=== PATIENT | male | born 2000 | race Caucasian/White ===

== ENCOUNTER 2023-02-14 19:53 | Emergency (ER) | payer MEDICAID, SELFPAY ==
[2023-02-14 20:04] VITALS: BP 157/92; PULSE 96; RESP 18; TEMP 37.2; O2SAT 98; BMI 31.9
--- NOTE | 2023-02-14 20:13 | ED_ITS ---
HPI - General Adult General Chief complaint: Psychiatric Symptoms <SHAUN Galan - Last Filed: 02/16/23 13:34> Stated complaint: CRISIS <SHAUN Galan - Last Filed: 02/16/23 13:34> Time Seen by Provider: 02/14/23 20:53 <SHAUN Galan - Last Filed: 02/16/23 13:34> Source: patient <Moni Cevallos MD - Last Filed: 02/14/23 23:41> Mode of arrival: ambulatory <Moni Cevallos MD - Last Filed: 02/14/23 23:41> History of Present Illness HPI narrative: 22-year-old male who has struggled with anxiety and depression in the past and was recently started on fluoxetine this past Wednesday and states that he has had significantly increasing feelings of depression and although no explicit thoughts of killing himself or anyone else he states that he feels like he is going to . He describes these as dark thoughts. Otherwise he denies any recent fever, chills, cough, sore throat, GI or symptoms. <Moni Cevallos MD - Last Filed: 02/14/23 23:41> Related Data Home medications: Home Medications Medication Instructions Recorded Confirmed fluoxetine 10 mg capsule 10 mg PO DAILY 02/15/23 02/15/23 <SHAUN Galan - Last Filed: 02/16/23 13:34> Allergies/adverse reactions: Allergies Allergy/AdvReac Type Severity Reaction Status Date / Time environmental allergies Allergy Runny Nose Verified 02/14/23 20:10 shellfish derived Allergy Unknown Verified 02/14/23 20:10 <SHAUN Galan - Last Filed: 02/16/23 13:34> Review of Systems Review of Systems: Pertinent positives and negatives as stated in HPI <Moni Cevallos MD - Last Filed: 02/14/23 23:41> PMFSH Past Medical History Source: nursing notes reviewed <Moni Cevallos MD - Last Filed: 02/14/23 23:41> Social History Social History: Social History Alcohol intake: current Alcohol intake frequency: 3 or more drinks per day Alcohol type: beer and hard liquor Smoked in Last 30 Days: Yes Use of substances other than those prescribed or required for medical reasons: No Substance Use Type: Marijuana Substance Use Frequency: Socially Substance Use Frequency Other:: rarely Last Used Substance: Weeks (ago) Any prior treatment program specific to substance use: No Advance Directives: No Advance Directives Information Provided: No Healthcare Proxy: No Guardian: No <SHAUN Galan - Last Filed: 02/16/23 13:34> Physical Exam ED Vital Signs: Vital Signs - 24 hr 02/14/23 20:04 02/14/23 20:21 02/15/23 04:13 Temperature 98.9 F 98.2 F Pulse Rate 96 80 Respiratory Rate 18 18 12 Blood Pressure 157/92 H 154/98 H Pulse Oximetry 98 100 Oxygen Delivery Method Room Air Room Air 02/15/23 05:20 02/15/23 07:27 Temperature 97.8 F 98.0 F Pulse Rate 67 72 Respiratory Rate 16 12 Blood Pressure 137/96 H 148/99 H Pulse Oximetry 97 98 Oxygen Delivery Method Room Air Room Air BMI result Body Mass Index 31.9 <SHAUN Galan - Last Filed: 02/16/23 13:34> Vital Signs - 24 hr 02/14/23 20:04 02/14/23 20:21 02/15/23 04:13 Temperature 98.9 F 98.2 F Pulse Rate 96 80 Respiratory Rate 18 18 12 Blood Pressure 157/92 H 154/98 H Pulse Oximetry 98 100 Oxygen Delivery Method Room Air Room Air 02/15/23 05:20 02/15/23 07:27 Temperature 97.8 F 98.0 F Pulse Rate 67 72 Respiratory Rate 16 12 Blood Pressure 137/96 H 148/99 H Pulse Oximetry 97 98 Oxygen Delivery Method Room Air Room Air BMI result Body Mass Index 31.9 VITAL SIGNS: Reviewed. GENERAL: Well developed, well nourished, in no acute distress. HEAD: Normocephalic/atraumatic EYES: PERRLA, EOMI EARS: Ext canals without abnormality NOSE: Nares patent bilateral OROPHARYNX: no oral lesions noted, posterior pharynx clear and non-erythematous without noted tonsillar enlargement/erythema/exudates NECK: Supple, no adenopathy LUNGS: Normal breath sounds. No adventitious sounds or accessory muscle use. SpO2<100> CARDIOVASCULAR: Regular rate and rhythm without noted murmurs ABDOMEN: Soft, non-tender, non-distended with bowel sounds. MUSCULOSKELETAL: No tenderness, deformities, or effusions noted on gross inspection. EXTREMITIES: No cyanosis, clubbing or edema. SKIN: Inspection of the skin reveals no rashes NEUROLOGIC: Alert and oriented x 4. Strength and sensation to light touch were grossly intact x 4. <Moni Cevallos MD - Last Filed: 02/14/23 23:41> Vital Signs - 24 hr 02/14/23 20:04 02/14/23 20:21 02/15/23 04:13 Temperature 98.9 F 98.2 F Pulse Rate 96 80 Respiratory Rate 18 18 12 Blood Pressure 157/92 H 154/98 H Pulse Oximetry 98 100 Oxygen Delivery Method Room Air Room Air 02/15/23 05:20 02/15/23 07:27 Temperature 97.8 F 98.0 F Pulse Rate 67 72 Respiratory Rate 16 12 Blood Pressure 137/96 H 148/99 H Pulse Oximetry 97 98 Oxygen Delivery Method Room Air Room Air BMI result Body Mass Index 31.9 <Aristeo James MD - Last Filed: 02/15/23 12:42> Course Course Course Narrative: RME: 22 yold male presents to the ED for anxiety, depression, crying, and having dark thoughts. denies SI/HI. labs and crisis ordered. <SHAUN Galan - Last Filed: 02/16/23 13:34> Reevaluation(s) Reevaluation #1: Assume care at 7:00 a.m. this morning. Patient has symptoms consistent with depression anxiety and reported dark thoughts. He is due to be evaluated. <Aristeo James MD - Last Filed: 02/15/23 12:42> Time: 07:09 <Aristeo James MD - Last Filed: 02/15/23 12:42> Reevaluation #2: patient can be discharged per Crisis, wasn't on medications but now with insurance he will be able to get meds. No SI. Outpatient resources to be made available to patient <Aristeo James MD - Last Filed: 02/15/23 12:42> Time: 12:39 <Aristeo James MD - Last Filed: 02/15/23 12:42> Medications Administered Discontinued Medications Generic Name Dose Route Start Last Admin Trade Name Freq PRN Reason Stop Dose Admin Lorazepam 1 mg 02/15/23 07:26 02/15/23 07:39 Lorazepam 1 Mg Tablet PO 02/15/23 07:27 1 mg ONCE ONE Administration Nicotine 21 mg 02/15/23 07:26 02/15/23 07:39 Nicotine 21 Mg Patch.Td24 TRANSDERMA 02/15/23 07:27 21 mg ONCE ONE Administration <SHAUN Galan - Last Filed: 02/16/23 13:34> Medications Administered Discontinued Medications Generic Name Dose Route Start Last Admin Trade Name Freq PRN Reason Stop Dose Admin Lorazepam 1 mg 02/15/23 07:26 02/15/23 07:39 Lorazepam 1 Mg Tablet PO 02/15/23 07:27 1 mg ONCE ONE Administration Nicotine 21 mg 02/15/23 07:26 02/15/23 07:39 Nicotine 21 Mg Patch.Td24 TRANSDERMA 02/15/23 07:27 21 mg ONCE ONE Administration <Moni Cevallos MD - Last Filed: 02/14/23 23:41> Medications Administered Discontinued Medications Generic Name Dose Route Start Last Admin Trade Name Freq PRN Reason Stop Dose Admin Lorazepam 1 mg 02/15/23 07:26 02/15/23 07:39 Lorazepam 1 Mg Tablet PO 02/15/23 07:27 1 mg ONCE ONE Administration Nicotine 21 mg 02/15/23 07:26 02/15/23 07:39 Nicotine 21 Mg Patch.Td24 TRANSDERMA 02/15/23 07:27 21 mg ONCE ONE Administration <Aristeo James MD - Last Filed: 02/15/23 12:42> Medical Decision Making Medical Decision Making MDM Narrative: 22-year-old male with history and clinical presentation consistent with depression likely increased by recent initiation of the fluoxetine but denies any overt SI/HI at this time but reports significant worsening of depression and anxiety. I have reviewed all investigations and I have noted that there is a le ukocytosis however there is no obvious etiology at this time, patient is afebrile/not tachycardic. Patient is otherwise medically cleared for further evaluation by the care team. Patient placed in physician observation because the patient needed more time for evaluation by the care team. At the time observation was started the patient's vital signs were stable, patient is alert and oriented, neuro: Nonfocal, CV RRR, lungs clear <Moni Brazille, MD - Last Filed: 02/14/23 23:41> Differential Diagnosis Please see the discussion above <Moni Cevallos MD - Last Filed: 02/14/23 23:41> Lab Data Please see the discussion above <Moni Cevallos MD - Last Filed: 02/14/23 23:41> Result Diagrams: 02/14/23 20:23 02/14/23 20:23 <SHAUN Galan - Last Filed: 02/16/23 13:34> Labs: Lab Results 02/14/23 02/14/23 02/14/23 Range/Units 20:23 20:23 20:23 WBC 15.0 H (4.8-10.8) X10*3/uL RBC 5.12 (4.60-5.80) X10*6/uL Hgb 16.6 (14.0-18.0) g/dl Hct 47.4 (42.0-52.0) % MCV 92.6 (80.0-98.0) fL MCH 32.4 (27.0-33.0) pg MCHC 35.0 (31.0-36.0) g/dl RDW 11.9 (11.0-16.0) % Plt Count 310 (160-400) X10*3/uL MPV 8.2 L (9.4-12.4) fL Immature Gran % (Auto) 0.5 H (0.0-0.4) % Neut % (Auto) 74.1 H (45-73) % Lymph % (Auto) 19.7 L (20-40) % [place] % (Auto) 4.9 (2-11) % Eos % (Auto) 0.5 (0-4) % Baso % (Auto) 0.3 (0-2) % Lymph # (Auto) 3.0 (1.2-4.9) X10*3/uL [place] # (Auto) 0.7 (0.1-1.2) X10*3/uL Eos # (Auto) 0.1 (0.0-0.4) X10*3/uL Baso # (Auto) 0.1 (0.0-0.2) X10*3/uL Abs Immat Gran (auto) 0.08 H (0.00-0.03) X10*3/uL Absolute Neuts (auto) 11.1 H (2.0-8.3) x10*3/uL Absolute Nucleated RBC 0.000 (0.0-0.012) X10*3/uL Nucleated RBC % (auto) 0.0 (0.0-0.2) /100WBC Sodium 140 (135-145) mmol/L Potassium 4.2 (3.3-5.1) mmol/L Chloride 103 (96-108) mmol/L Carbon Dioxide 24 (22-29) mmol/L Anion Gap 17 (12-20) BUN 14 (9-16) mg/dL Creatinine 1.07 (0.5-1.4) mg/dL Estim Creat Clear Calc 119.1 Estimated GFR > 60 Random Glucose 99 (60-115) mg/dL Calcium 10.3 H (8.4-10.2) mg/dL Total Bilirubin 0.3 (0.0-1.0) mg/dL AST 35 (5-37) U/L ALT 67 H (0-40) U/L Alkaline Phosphatase 100 (39-117) U/L Total Protein 8.4 H (6.5-8.0) g/dL Albumin 4.9 (3.5-5.0) g/dL Urine Color Urine Appearance Urine pH (5.0-9.0) Ur Specific [place] (1.005-1.025) Urine Protein (Neg-Trace) mg/dL Urine Glucose (UA) (Negative) mg/dL Urine Ketones (Negative) mg/dL Urine Blood (Negative) Urine Nitrite (Negative) Ur Leukocyte Esterase (Negative) Urine Opiates Screen (Not Detect) Urine Fentanyl Screen (Not Detect) Ur Barbiturates Screen (Not Detect) Ur Phencyclidine Scrn (Not Detect) Ur Amphetamines Screen (Not Detect) U Benzodiazepines Scrn (Not Detect) Urine Cocaine Screen (Not Detect) U Marijuana (THC) Screen (Not Detect) Ethyl Alcohol < 10 mg/dL COVID-19 ([facility]) (Negative) COVID-19 Clin Com 02/14/23 02/14/23 02/14/23 Range/Units 22:37 22:37 22:46 WBC (4.8-10.8) X10*3/uL RBC (4.60-5.80) X10*6/uL Hgb (14.0-18.0) g/dl Hct (42.0-52.0) % MCV (80.0-98.0) fL MCH (27.0-33.0) pg MCHC (31.0-36.0) g/dl RDW (11.0-16.0) % Plt Count (160-400) X10*3/uL MPV (9.4-12.4) fL Immature Gran % (Auto) (0.0-0.4) % Neut % (Auto) (45-73) % Lymph % (Auto) (20-40) % [place] % (Auto) (2-11) % Eos % (Auto) (0-4) % Baso % (Auto) (0-2) % Lymph # (Auto) (1.2-4.9) X10*3/uL [place] # (Auto) (0.1-1.2) X10*3/uL Eos # (Auto) (0.0-0.4) X10*3/uL Baso # (Auto) (0.0-0.2) X10*3/uL Abs Immat Gran (auto) (0.00-0.03) X10*3/uL Absolute Neuts (auto) (2.0-8.3) x10*3/uL Absolute Nucleated RBC (0.0-0.012) X10*3/uL Nucleated RBC % (auto) (0.0-0.2) /100WBC Sodium (135-145) mmol/L Potassium (3.3-5.1) mmol/L Chloride (96-108) mmol/L Carbon Dioxide (22-29) mmol/L Anion Gap (12-20) BUN (9-16) mg/dL Creatinine (0.5-1.4) mg/dL Estim Creat Clear Calc Estimated GFR Random Glucose (60-115) mg/dL Calcium (8.4-10.2) mg/dL Total Bilirubin (0.0-1.0) mg/dL AST (5-37) U/L ALT (0-40) U/L Alkaline Phosphatase (39-117) U/L Total Protein (6.5-8.0) g/dL Albumin (3.5-5.0) g/dL Urine Color Yellow Urine Appearance Clear Urine pH 7.0 (5.0-9.0) Ur Specific [place] 1.020 (1.005-1.025) Urine Protein Negative (Neg-Trace) mg/dL Urine Glucose (UA) Negative (Negative) mg/dL Urine Ketones Trace (Negative) mg/dL Urine Blood Negative (Negative) Urine Nitrite Negative (Negative) Ur Leukocyte Esterase Negative (Negative) Urine Opiates Screen Not Detected (Not Detect) Urine Fentanyl Screen Not Detected (Not Detect) Ur Barbiturates Screen Not Detected (Not Detect) Ur Phencyclidine Scrn Not Detected (Not Detect) Ur Amphetamines Screen Not Detected (Not Detect) U Benzodiazepines Scrn Not Detected (Not Detect) Urine Cocaine Screen Not Detected (Not Detect) U Marijuana (THC) Screen Not Detected (Not Detect) Ethyl Alcohol mg/dL COVID-19 ([facility]) Negative (Negative) COVID-19 Clin Com See Note <SHAUN Galan - Last Filed: 02/16/23 13:34> Lab Results 02/14/23 02/14/23 02/14/23 Range/Units 20:23 20:23 20:23 WBC 15.0 H (4.8-10.8) X10*3/uL RBC 5.12 (4.60-5.80) X10*6/uL Hgb 16.6 (14.0-18.0) g/dl Hct 47.4 (42.0-52.0) % MCV 92.6 (80.0-98.0) fL MCH 32.4 (27.0-33.0) pg MCHC 35.0 (31.0-36.0) g/dl RDW 11.9 (11.0-16.0) % Plt Count 310 (160-400) X10*3/uL MPV 8.2 L (9.4-12.4) fL Immature Gran % (Auto) 0.5 H (0.0-0.4) % Neut % (Auto) 74.1 H (45-73) % Lymph % (Auto) 19.7 L (20-40) % [place] % (Auto) 4.9 (2-11) % Eos % (Auto) 0.5 (0-4) % Baso % (Auto) 0.3 (0-2) % Lymph # (Auto) 3.0 (1.2-4.9) X10*3/uL [place] # (Auto) 0.7 (0.1-1.2) X10*3/uL Eos # (Auto) 0.1 (0.0-0.4) X10*3/uL Baso # (Auto) 0.1 (0.0-0.2) X10*3/uL Abs Immat Gran (auto) 0.08 H (0.00-0.03) X10*3/uL Absolute Neuts (auto) 11.1 H (2.0-8.3) x10*3/uL Absolute Nucleated RBC 0.000 (0.0-0.012) X10*3/uL Nucleated RBC % (auto) 0.0 (0.0-0.2) /100WBC Sodium 140 (135-145) mmol/L Potassium 4.2 (3.3-5.1) mmol/L Chloride 103 (96-108) mmol/L Carbon Dioxide 24 (22-29) mmol/L Anion Gap 17 (12-20) BUN 14 (9-16) mg/dL Creatinine 1.07 (0.5-1.4) mg/dL Estim Creat Clear Calc 119.1 Estimated GFR > 60 Random Glucose 99 (60-115) mg/dL Calcium 10.3 H (8.4-10.2) mg/dL Total Bilirubin 0.3 (0.0-1.0) mg/dL AST 35 (5-37) U/L ALT 67 H (0-40) U/L Alkaline Phosphatase 100 (39-117) U/L Total Protein 8.4 H (6.5-8.0) g/dL Albumin 4.9 (3.5-5.0) g/dL Urine Color Urine Appearance Urine pH (5.0-9.0) Ur Specific [place] (1.005-1.025) Urine Protein (Neg-Trace) mg/dL Urine Glucose (UA) (Negative) mg/dL Urine Ketones (Negative) mg/dL Urine Blood (Negative) Urine Nitrite (Negative) Ur Leukocyte Esterase (Negative) Urine Opiates Screen (Not Detect) Urine Fentanyl Screen (Not Detect) Ur Barbiturates Screen (Not Detect) Ur Phencyclidine Scrn (Not Detect) Ur Amphetamines Screen (Not Detect) U Benzodiazepines Scrn (Not Detect) Urine Cocaine Screen (Not Detect) U Marijuana (THC) Screen (Not Detect) Ethyl Alcohol < 10 mg/dL COVID-19 ([facility]) (Negative) COVID-19 Clin Com 02/14/23 02/14/23 02/14/23 Range/Units 22:37 22:37 22:46 WBC (4.8-10.8) X10*3/uL RBC (4.60-5.80) X10*6/uL Hgb (14.0-18.0) g/dl Hct (42.0-52.0) % MCV (80.0-98.0) fL MCH (27.0-33.0) pg MCHC (31.0-36.0) g/dl RDW (11.0-16.0) % Plt Count (160-400) X10*3/uL MPV (9.4-12.4) fL Immature Gran % (Auto) (0.0-0.4) % Neut % (Auto) (45-73) % Lymph % (Auto) (20-40) % [place] % (Auto) (2-11) % Eos % (Auto) (0-4) % Baso % (Auto) (0-2) % Lymph # (Auto) (1.2-4.9) X10*3/uL [place] # (Auto) (0.1-1.2) X10*3/uL Eos # (Auto) (0.0-0.4) X10*3/uL Baso # (Auto) (0.0-0.2) X10*3/uL Abs Immat Gran (auto) (0.00-0.03) X10*3/uL Absolute Neuts (auto) (2.0-8.3) x10*3/uL Absolute Nucleated RBC (0.0-0.012) X10*3/uL Nucleated RBC % (auto) (0.0-0.2) /100WBC Sodium (135-145) mmol/L Potassium (3.3-5.1) mmol/L Chloride (96-108) mmol/L Carbon Dioxide (22-29) mmol/L Anion Gap (12-20) BUN (9-16) mg/dL Creatinine (0.5-1.4) mg/dL Estim Creat Clear Calc Estimated GFR Random Glucose (60-115) mg/dL Calcium (8.4-10.2) mg/dL Total Bilirubin (0.0-1.0) mg/dL AST (5-37) U/L ALT (0-40) U/L Alkaline Phosphatase (39-117) U/L Total Protein (6.5-8.0) g/dL Albumin (3.5-5.0) g/dL Urine Color Yellow Urine Appearance Clear Urine pH 7.0 (5.0-9.0) Ur Specific [place] 1.020 (1.005-1.025) Urine Protein Negative (Neg-Trace) mg/dL Urine Glucose (UA) Negative (Negative) mg/dL Urine Ketones Trace (Negative) mg/dL Urine Blood Negative (Negative) Urine Nitrite Negative (Negative) Ur Leukocyte Esterase Negative (Negative) Urine Opiates Screen Not Detected (Not Detect) Urine Fentanyl Screen Not Detected (Not Detect) Ur Barbiturates Screen Not Detected (Not Detect) Ur Phencyclidine Scrn Not Detected (Not Detect) Ur Amphetamines Screen Not Detected (Not Detect) U Benzodiazepines Scrn Not Detected (Not Detect) Urine Cocaine Screen Not Detected (Not Detect) U Marijuana (THC) Screen Not Detected (Not Detect) Ethyl Alcohol mg/dL COVID-19 ([facility]) Negative (Negative) COVID-19 Clin Com See Note <Moni Cevallos MD - Last Filed: 02/14/23 23:41> Lab Results 02/14/23 02/14/23 02/14/23 Range/Units 20:23 20:23 20: WBC 15.0 H (4.8-10.8) X10*3/uL RBC 5.12 (4.60-5.80) X10*6/uL Hgb 16.6 (14.0-18.0) g/dl Hct 47.4 (42.0-52.0) % MCV 92.6 (80.0-98.0) fL MCH 32.4 (27.0-33.0) pg MCHC 35.0 (31.0-36.0) g/dl RDW 11.9 (11.0-16.0) % Plt Count 310 (160-400) X10*3/uL MPV 8.2 L (9.4-12.4) fL Immature Gran % (Auto) 0.5 H (0.0-0.4) % Neut % (Auto) 74.1 H (45-73) % Lymph % (Auto) 19.7 L (20-40) % [place] % (Auto) 4.9 (2-11) % Eos % (Auto) 0.5 (0-4) % Baso % (Auto) 0.3 (0-2) % Lymph # (Auto) 3.0 (1.2-4.9) X10*3/uL [place] # (Auto) 0.7 (0.1-1.2) X10*3/uL Eos # (Auto) 0.1 (0.0-0.4) X10*3/uL Baso # (Auto) 0.1 (0.0-0.2) X10*3/uL Abs Immat Gran (auto) 0.08 H (0.00-0.03) X10*3/uL Absolute Neuts (auto) 11.1 H (2.0-8.3) x10*3/uL Absolute Nucleated RBC 0.000 (0.0-0.012) X10*3/uL Nucleated RBC % (auto) 0.0 (0.0-0.2) /100WBC Sodium 140 (135-145) mmol/L Potassium 4.2 (3.3-5.1) mmol/L Chloride 103 (96-108) mmol/L Carbon Dioxide 24 (22-29) mmol/L Anion Gap 17 (12-20) BUN 14 (9-16) mg/dL Creatinine 1.07 (0.5-1.4) mg/dL Estim Creat Clear Calc 119.1 Estimated GFR > 60 Random Glucose 99 (60-115) mg/dL Calcium 10.3 H (8.4-10.2) mg/dL Total Bilirubin 0.3 (0.0-1.0) mg/dL AST 35 (5-37) U/L ALT 67 H (0-40) U/L Alkaline Phosphatase 100 (39-117) U/L Total Protein 8.4 H (6.5-8.0) g/dL Albumin 4.9 (3.5-5.0) g/dL Urine Color Urine Appearance Urine pH (5.0-9.0) Ur Specific [place] (1.005-1.025) Urine Protein (Neg-Trace) mg/dL Urine Glucose (UA) (Negative) mg/dL Urine Ketones (Negative) mg/dL Urine Blood (Negative) Urine Nitrite (Negative) Ur Leukocyte Esterase (Negative) Urine Opiates Screen (Not Detect) Urine Fentanyl Screen (Not Detect) Ur Barbiturates Screen (Not Detect) Ur Phencyclidine Scrn (Not Detect) Ur Amphetamines Screen (Not Detect) U Benzodiazepines Scrn (Not Detect) Urine Cocaine Screen (Not Detect) U Marijuana (THC) Screen (Not Detect) Ethyl Alcohol < 10 mg/dL COVID-19 ([facility]) (Negative) COVID-19 Clin Com 02/14/23 02/14/23 02/14/23 Range/Units 22:37 22:37 22:46 WBC (4.8-10.8) X10*3/uL RBC (4.60-5.80) X10*6/uL Hgb (14.0-18.0) g/dl Hct (42.0-52.0) % MCV (80.0-98.0) fL MCH (27.0-33.0) pg MCHC (31.0-36.0) g/dl RDW (11.0-16.0) % Plt Count (160-400) X10*3/uL MPV (9.4-12.4) fL Immature Gran % (Auto) (0.0-0.4) % Neut % (Auto) (45-73) % Lymph % (Auto) (20-40) % [place] % (Auto) (2-11) % Eos % (Auto) (0-4) % Baso % (Auto) (0-2) % Lymph # (Auto) (1.2-4.9) X10*3/uL [place] # (Auto) (0.1-1.2) X10*3/uL Eos # (Auto) (0.0-0.4) X10*3/uL Baso # (Auto) (0.0-0.2) X10*3/uL Abs Immat Gran (auto) (0.00-0.03) X10*3/uL Absolute Neuts (auto) (2.0-8.3) x10*3/uL Absolute Nucleated RBC (0.0-0.012) X10*3/uL Nucleated RBC % (auto) (0.0-0.2) /100WBC Sodium (135-145) mmol/L Potassium (3.3-5.1) mmol/L Chloride (96-108) mmol/L Carbon Dioxide (22-29) mmol/L Anion Gap (12-20) BUN (9-16) mg/dL Creatinine (0.5-1.4) mg/dL Estim Creat Clear Calc Estimated GFR Random Glucose (60-115) mg/dL Calcium (8.4-10.2) mg/dL Total Bilirubin (0.0-1.0) mg/dL AST (5-37) U/L ALT (0-40) U/L Alkaline Phosphatase (39-117) U/L Total Protein (6.5-8.0) g/dL Albumin (3.5-5.0) g/dL Urine Color Yellow Urine Appearance Clear Urine pH 7.0 (5.0-9.0) Ur Specific [place] 1.020 (1.005-1.025) Urine Protein Negative (Neg-Trace) mg/dL Urine Glucose (UA) Negative (Negative) mg/dL Urine Ketones Trace (Negative) mg/dL Urine Blood Negative (Negative) Urine Nitrite Negative (Negative) Ur Leukocyte Esterase Negative (Negative) Urine Opiates Screen Not Detected (Not Detect) Urine Fentanyl Screen Not Detected (Not Detect) Ur Barbiturates Screen Not Detected (Not Detect) Ur Phencyclidine Scrn Not Detected (Not Detect) Ur Amphetamines Screen Not Detected (Not Detect) U Benzodiazepines Scrn Not Detected (Not Detect) Urine Cocaine Screen Not Detected (Not Detect) U Marijuana (THC) Screen Not Detected (Not Detect) Ethyl Alcohol mg/dL COVID-19 ([facility]) Negative (Negative) COVID-19 Clin Com See Note <Aristeo James MD - Last Filed: 02/15/23 12:42> Discharge Plan Discharge Clinical Impression: Depression, Panic disorder, Leukocytosis <SHAUN Galan - Last Filed: 02/16/23 13:34> Patient Disposition: Home, Self-Care <SHAUN Galan - Last Filed: 02/16/23 13:34> Instructions: Depression (DC), Panic Disorder (ED), Leukocytosis (ED) <SHAUN Galan - Last Filed: 02/16/23 13:34> Additional Instructions: follow up with PMD for repeat blood work in 1-2 weeks <SHAUN Galan - Last Filed: 02/16/23 13:34> Prescriptions: No Action fluoxetine 10 mg Capsule 10 mg PO DAILY <SHAUN Galan - Last Filed: 02/16/23 13:34> Referrals: Jamal Brice MD [Primary Care Provider] - 5 days <SHAUN Galan - Last Filed: 02/16/23 13:34> Interventions: [place]-Suicide Risk Severity Scale Last Done: 02/15/23 12:55 ED Discharge Assessment Last Done: 02/15/23 12:55 <SHAUN Galan - Last Filed: 02/16/23 13:34> Discharge Date/Time: 02/15/23 12:56 <SHAUN Galan - Last Filed: 02/16/23 13:34>
[2023-02-14 20:21] VITALS: BP 154/98; PULSE 80; RESP 18; TEMP 36.8; O2SAT 100
[2023-02-14 20:28] LABS: MANUAL DIFF FLAG NO
[2023-02-14 20:29] LABS: Basophils Absolute Auto 0.1 X10*3/uL (0.0-0.2); Basophils Percent Auto 0.3 % (0-2); Eosinophils Absolute Auto 0.1 X10*3/uL (0.0-0.4); Eosinophils Percent Auto 0.5 % (0-4); Hematocrit 47.4 % (42.0-52.0); Hemoglobin 16.6 g/dl (14.0-18.0); Imm Gran Abs Auto 0.08 X10*3/uL (0.00-0.03); Imm Gran Pct Auto 0.5 % (0.0-0.4); Lymphocytes Percent Auto 19.7 % (20-40); Mean Corpuscular Hemoglobin 32.4 pg (27.0-33.0); Mean Corpuscular Volume 92.6 fL (80.0-98.0); Mean Platelet Volume 8.2 fL (9.4-12.4); Monocytes Absolute Auto 0.7 X10*3/uL (0.1-1.2); Monocytes Percent Auto 4.9 % (2-11); Neutrophils Absolute Auto 11.1 x10*3/uL (2.0-8.3); Neutrophils Percent Auto 74.1 % (45-73); Platelet Count 310 X10*3/uL (160-400); Red Blood Count 5.12 X10*6/uL (4.60-5.80); Red Cell Distribution Width 11.9 % (11.0-16.0)
--- NOTE | 2023-02-14 20:42 | PC.NURSE ---
Patient is alert and oriented x3. State he has been feeling overwhelming anxiety and moments of panic in which he feels like he wont make it to tomorrow. No SI/HI. He has recently had a in the family and another family member diagnosed with leukemia. Has been treated in the past for panic disorder and depression, but notes that he was unable to fill prescriptions due to no insurance. [facility] and [facility];1 initiated. Will continue with plan of care
[2023-02-14 20:46] LABS: Alanine Aminotransferase 67 U/L (0-40); Albumin Level 4.9 g/dL (3.5-5.0); Alkaline Phosphatase 100 U/L (39-117); Anion Gap 17 (12-20); Aspartate Amino Transferase 35 U/L (5-37); Bilirubin Total 0.3 mg/dL (0.0-1.0); Blood Urea Nitrogen 14 mg/dL (9-16); Calcium 10.3 mg/dL (8.4-10.2); Carbon Dioxide 24 mmol/L (22-29); Chloride 103 mmol/L (96-108); Creatinine Clr Calc Pharmacy 119.1; Estimated Glomerular Filt Rate > 60; Glucose Random 99 mg/dL (60-115); Potassium 4.2 mmol/L (3.3-5.1); Sodium 140 mmol/L (135-145); Total Protein 8.4 g/dL (6.5-8.0)
[2023-02-14 20:48] LABS: Ethanol < 10 mg/dL
[2023-02-14 22:55] LABS: Appearance Urine Clear; Color Urine Yellow; Glucose Urine UA Negative (Negative); Leukocyte Esterase Urine Negative (Negative); Nitrite Urine Negative (Negative); Urine Blood Negative (Negative); Urine Ketones Trace mg/dL (Negative); Urine Protein Negative (Neg-Trace)
[2023-02-14 23:03] LABS: Amphetamine Screen Urine Not Detected (Not Detect); Barbiturates, Urine Not Detected (Not Detect); Benzodiazepines Screen Urine Not Detected (Not Detect); Cannabinoid Screen Urine Not Detected (Not Detect); Cocaine Screen Urine Not Detected (Not Detect); Fentanyl, urine Not Detected (Not Detect); Opiate Screen Urine Not Detected (Not Detect); Phencyclidine Screen Urine Not Detected (Not Detect)
[2023-02-14 23:08] LABS: COVID-19 Test Negative (Negative); IDNOW Serial# 6674DD1D
[2023-02-15 04:13] VITALS: RESP 12
--- NOTE | 2023-02-15 04:14 | PC.NURSE ---
Pt sleeping at the bedside in apparent distress. Breaths are even, regular, and unlabored with equal chest rises. Will continue to monitor.
[2023-02-15 05:20] VITALS: BP 137/96; PULSE 67; RESP 16; TEMP 36.6; O2SAT 97
[2023-02-15 07:27] VITALS: BP 148/99; PULSE 72; RESP 12; TEMP 36.7; O2SAT 98
[2023-02-15] MEDS: Nicotine 21 MG PATCH.TD24 TRANSDERMA (07:39)
[2023-02-15] MEDS: LORazepam 1 MG TABLET PO (07:39)
--- NOTE | 2023-02-15 08:37 | PC.NURSE ---
care team at the bedside
--- NOTE | 2023-02-15 14:02 | MHC.CARE ---
1339 - Pt referred to [facility] 1400 ? Pt referred to [facility]
== END 2023-02-15 12:56 | disposition home or self-care (01) ==
PROVIDERS: Emergency Provider Student in an Organized Health Care Education/Training Program; PCP Internal Medicine
DX: F33.1 Major depressive disorder, recurrent, moderate (principal); F41.9 Anxiety disorder, unspecified; F41.0 Panic disorder [episodic paroxysmal anxiety]; D72.829 Elevated white blood cell count, unspecified; Z20.822 Contact with and (suspected) exposure to COVID-19; Z20.828 Contact with and (suspected) exposure to other viral communicable diseases; Z79.899 Other long term (current) drug therapy
CPT/HCPCS: 36415; 80053; 80307; 81003; 82077; 85025; 87635; 99284; 99285; S9485

== ENCOUNTER 2023-02-18 13:17 | Emergency (ER) | payer OTHER, SELFPAY ==
--- NOTE | ~2023-02-18 | CT_ITS ---
EXAMINATION: CT HEAD WITHOUT CONTRAST CLINICAL INFORMATION: Hallucinations COMPARISON: None available. TECHNIQUE: Contiguous axial imaging was performed from the skull base to vertex without intravenous administration of contrast. This CT examination was performed using dose optimization techniques as appropriate, variously including the following: *Automated exposure control *Adjustment of mA and/or kV according to patient size (this includes techniques or standardized protocols for targeted exams where dose is matched to indication/reason for exam; i.e. extremities or head) *Use of iterative reconstruction technique DLP: 606 mGy-cm FINDINGS: No intra or extra-axial fluid collection or hemorrhage, mass, or mass effect. Calvarium intact. CT/CT head/brain wo IV con IMPRESSION: No acute intracranial pathology.
[2023-02-18 13:27] VITALS: BP 153/97; PULSE 92; RESP 16; TEMP 36.8; O2SAT 98; BMI 31.9
--- NOTE | 2023-02-18 13:30 | ED_ITS ---
HPI - General Adult General Chief complaint: General Medical <SHAUN Mckoy - Last Filed: 02/18/23 13:31> Stated complaint: diff breathing feeling funny <SHAUN Mckoy - Last Filed: 02/18/23 13:31> Time Seen by Provider: 02/18/23 14:55 <SHAUN Mcoky - Last Filed: 02/18/23 13:31> Source: patient <SHAUN López - Last Filed: 02/18/23 18:20> Mode of arrival: ambulatory <SHAUN López Last Filed: 02/18/23 18:20> Limitations: no limitations <SHAUN López Last Filed: 02/18/23 18:20> History of Present Illness HPI narrative: Patient is a 22 year old assigned male at with a history of depression and anxiety presenting to the emergency department today with hallucinations and anxiety. Patient states that since before his last visit here, he has been having hallucinations. Patient states that it feels as though he is on an acid trip all the times, things seem brighter and he feels like he is looking through a different colored lens. Patient states that he has been more anxious lately. Patient states that his therapist told him that this may be from a medical problem and he should come to the ER for clearance. Patient denies any dizziness, lightheadedness, abdominal pain, nausea, vomiting, fever, chills, blurry vision, double vision, loss of vision, chest pain, difficulty breathing, shortness of breath, back pain, night sweats, pain with urination, increased urinary frequency, increased urinary urgency, blood in his urine or stool, syncope or a near syncopal episode, recent trauma or falls, bowel incontinence, bladder incontinence, bowel retention, bladder retention, or any other complaints at this time. <SHAUN López Last Filed: 02/18/23 18:20> Onset (ago): week(s) <SHAUN López Last Filed: 02/18/23 18:20> Severity: mild <SHAUN López Last Filed: 02/18/23 18:20> Relieving factors: none <SHAUN López Last Filed: 02/18/23 18:20> Exacerbating factors: none <SHAUN López Last Filed: 02/18/23 18:20> Associated symptoms: denies other symptoms <SHAUN López Last Filed: 02/18/23 18:20> Treatments prior to arrival: none <SHAUN López Last Filed: 02/18/23 18:20> Related Data Home medications: Home Medications Medication Instructions Recorded Confirmed fluoxetine 10 mg capsule 10 mg PO DAILY 02/15/23 02/15/23 <SHAUN Mckoy Last Filed: 02/18/23 13:31> Allergies/adverse reactions: Allergies Allergy/AdvReac Type Severity Reaction Status Date / Time environmental allergies Allergy Runny Nose Verified 02/14/23 20:10 shellfish derived Allergy Unknown Verified 02/14/23 20:10 <SHAUN Mckoy Last Filed: 02/18/23 13:31> Review of Systems Constitutional: Constitutional: Reports no additional constitutional complaints, Denies chills, Denies fever(s) and Denies night sweats <SHAUN López Last Filed: 02/18/23 18:20> Eyes: Eyes: Reports no additional eye complaints, Denies blurry vision, Denies change in vision, Denies diplopia, Denies eye discharge, Denies loss of vision and Denies eye pain <SHAUN López Last Filed: 02/18/23 18:20> ENT: Denies dizziness <SHAUN López Last Filed: 02/18/23 18:20> Cardiovascular: Cardiovascular: Reports no additional cardiovascular complaint s, Denies chest pain, Denies lightheadedness, Denies Loss of Consciousness and Denies dyspnea <SHAUN López Last Filed: 02/18/23 18:20> Respiratory: Respiratory: Reports no additional respiratory complaints and Denies dyspnea <SHAUN López Last Filed: 02/18/23 18:20> Gastrointestinal: Gastrointestinal: Reports no additional gastrointestinal complaints, Denies abdominal pain, Denies melena, Denies hematochezia, Denies change in bowel habits and Denies change in stool character <SHAUN López Last Filed: 02/18/23 18:20> Genitourinary: Genitourinary: Reports no additional male genitourinary complaints, Denies hematuria, Denies oliguria, Denies difficulty urinating, Denies dysuria, Denies urinary frequency, Denies urinary hesitancy, Denies urinary incontinence and Denies urinary urgency <SHAUN López - Last Filed: 02/18/23 18:20> Musculoskeletal: Musculoskeletal: Reports no additional musculoskeletal complaints, Denies numbness and Denies tingling <SHAUN López - Last Filed: 02/18/23 18:20> Neurologic: Denies dizziness, Denies loss of vision, Denies numbness and Denies tingling <SHAUN López - Last Filed: 02/18/23 18:20> Psychiatric: Psychiatric: Reports no additional psychiatric complaints and Reports anxiety <SHAUN López - Last Filed: 02/18/23 18:20> Endocrine: Endocrine: Reports no additional endocrine complaints <SHAUN López - Last Filed: 02/18/23 18:20> Hematologic/Lymphatic: Hematologic/Lymphatic: Reports no additional hematologic/lymphatic complaints <SHAUN López - Last Filed: 02/18/23 18:20> Allergic/Immunologic: Allergic/Immunologic: Reports no additional allergic/immunologic complaints <SHAUN López - Last Filed: 02/18/23 18:20> [facility] Past Medical History Attestation statement: The following information was validated with the patient. <SHAUN López - Last Filed: 02/18/23 18:20> Source: old records reviewed and nursing notes reviewed <SHAUN López - Last Filed: 02/18/23 18:20> Social History Social History: Social History Alcohol intake: current Alcohol intake frequency: 3 or more drinks per day Alcohol type: beer and hard liquor Substance Use Type: Marijuana Advance Directives: No <SHAUN Mckoy - Last Filed: 02/18/23 13:31> Physical Exam ED Vital Signs: Vital Signs - 24 hr 02/18/23 13:27 02/18/23 16:29 Temperature 98.2 F 98.1 F Pulse Rate 92 80 Respiratory Rate 16 19 Blood Pressure 153/97 H 153/86 H Pulse Oximetry 98 97 Oxygen Delivery Method Room Air Room Air BMI result Body Mass Index 31.9 <SHAUN Mckoy - Last Filed: 02/18/23 13:31> Vital Signs - 24 hr 02/18/23 13:27 02/18/23 16:29 Temperature 98.2 F 98.1 F Pulse Rate 92 80 Respiratory Rate 16 19 Blood Pressure 153/97 H 153/86 H Pulse Oximetry 98 97 Oxygen Delivery Method Room Air Room Air BMI result Body Mass Index 31.9 <SHAUN López - Last Filed: 02/18/23 18:20> Const General: cooperative, no acute distress, alert and awake <SHAUN López Last Filed: 02/18/23 18:20> Nutritional Appearance: well nourished <SHAUN López - Last Filed: 02/18/23 18:20> Orientation/consciousness: patient oriented x3 <SHAUN López Last Filed: 02/18/23 18:20> Limitations: no limitations <SHAUN López Last Filed: 02/18/23 18:20> HENMT Head: Yes normal to inspection and Yes atraumatic <SHAUN López Last Filed: 02/18/23 18:20> Ears: hearing grossly normal bilaterally and external ears normal <SHAUN López Last Filed: 02/18/23 18:20> General nose exam: Normal external nose present, no nasal discharge noted and no epistaxis <SHAUN López Last Filed: 02/18/23 18:20> Face and sinus: Yes normal facial exam, No abrasion and No laceration <SHAUN López Last Filed: 02/18/23 18:20> Mouth: Normal oral and palatal mucosa present, no drooling and no muffled voice <SHAUN López Last Filed: 02/18/23 18:20> Eyes General: appearance normal, both eyes and all related structures <SHAUN López Last Filed: 02/18/23 18:20> Periorbital: periorbital findings normal <SHAUN López - Last Filed: 02/18/23 18:20> Eyelids: Yes eyelids normal <Cherrie Prieto PA - Last Filed: 02/18/23 18:20> Conjunctivae: conjunctivae normal <Cherrie Prieto PA - Last Filed: 02/18/23 18:20> Pupils: Equal, round and reactive pupils present <Cherrie Prieto PA - Last Filed: 02/18/23 18:20> EOM: EOMs intact bilaterally <Cherrie Prieto PA - Last Filed: 02/18/23 18:20> Neck Neck: Yes normal visual inspection, Yes full ROM and Yes no lymphadenopathy <Cherrie Prieto PA - Last Filed: 02/18/23 18:20> Chest Chest palpation & inspection: normal inspection of the chest <Cherrie Alonzokar PA - Last Filed: 02/18/23 18:20> Resp Effort & Inspection: normal respiratory effort and able to speak in complete sentences <Cherrie Prieto PA - Last Filed: 02/18/23 18:20> Auscultation: clear to auscultation bilaterally <Cherrie Alonzokar PA - Last Filed: 02/18/23 18:20> Cardio Rate: regular rate <Cherrie Prieto PA - Last Filed: 02/18/23 18:20> Rhythm: regular rhythm <Cherrie Alonzokar PA - Last Filed: 02/18/23 18:20> GI Inspection: Yes normal to inspection <Cherrie Prieto PA - Last Filed: 02/18/23 18:20> Neuro General: patient oriented x3 and moves all extremities <Cherrie Alonzokar PA - Last Filed: 02/18/23 18:20> Cranial nerves: Yes Equal, round and reactive pupils present <Cherrie Prieto PA - Last Filed: 02/18/23 18:20> Cognition (Neuro): normal cognition <Cherrie Alonzokar PA - Last Filed: 02/18/23 18:20> Motor exam (neuro): 5/5 motor strength present throughout <Cherrie Alonzokar PA - Last Filed: 02/18/23 18:20> Sensory Exam: Normal double simultaneous stimulation for sensation <Cherrie Alonzokar PA - Last Filed: 02/18/23 18:20> Coordination: [id number] test normal <SHAUN López - Last Filed: 02/18/23 18:20> Extrem General: Yes normal to inspection, Yes full ROM and Yes capillary refill normal <SHAUN López - Last Filed: 02/18/23 18:20> Psych Appearance: grossly normal <SHAUN López - Last Filed: 02/18/23 18:20> Mental Status: mental status grossly normal <SHAUN López - Last Filed: 02/18/23 18:20> Affect: Anxious affect present <SHAUN López Last Filed: 02/18/23 18:20> Attitude: cooperative <SHAUN López - Last Filed: 02/18/23 18:20> Thought process: Normal thought process present <SHAUN López Last Filed: 02/18/23 18:20> Thought content: Normal thought content present <SHAUN López Last Filed: 02/18/23 18:20> Insight: Good insight present (Psych) <SHAUN López Last Filed: 02/18/23 18:20> Course Course Course Narrative: 25 year old male with PMH of anxiety presents with difficulty seeing since starting fluoxetine. Patient reports everything I see looks surreal, bright and clear. It kind of feels like I am on acid. I think it is causing me to have anxiety and panic attacks. Patient is requesting blood tests and an EKG. Patient additionally reports he has had high blood pressure readings the last three times he's been seen. Patient denies chest pain, SOB, fatiguee, fever, chills. PE: Patient appears anxious Plan: GIUDO, basic labs <SHAUN Mckoy - Last Filed: 02/18/23 13:31> Medications Administered Discontinued Medications Generic Name Dose Route Start Last Admin Trade Name Freq PRN Reason Stop Dose Admin Hydroxyzine HCl 10 mg 02/18/23 15:20 02/18/23 16:07 Hydroxyzine Hcl 10 Mg Tablet PO 02/18/23 15:21 10 mg ONCE ONE Administration <SHAUN Mckoy Last Filed: 02/18/23 13:31> Medications Administered Discontinued Medications Generic Name Dose Route Start Last Admin Trade Name Freq PRN Reason Stop Dose Admin Hydroxyzine HCl 10 mg 02/18/23 15:20 02/18/23 16:07 Hydroxyzine Hcl 10 Mg Tablet PO 02/18/23 15:21 10 mg ONCE ONE Administration <SHAUN López - Last Filed: 02/18/23 18:20> Medical Decision Making Medical Decision Making [facility] Narrative: Patient is a 22 year old assigned male at with a history of anxiety and depression presenting to the emergency department today with hallucinations. Patient's physical exam showed an anxious individual but was otherwise unremarkable. Patient's blood work was unremarkable. Patient's EKG was unremarkable. Patient's head CT showed no acute process. I explained my physical exam findings as well as all test results to the patient. I answered all questions asked by the patient. CARE team met with the patient and was able to move up his partial hospitalization appointment. I stressed the importance of the patient taking his medication as prescribed. I stressed the importance of the patient following up with his primary care provider. I stressed the importan ce of the patient returning to the emergency department immediately if his symptoms were to worsen or if he were to develop any dizziness, shortness of breath, difficulty breathing, chest pain, blurry vision, loss of vision, nausea, vomiting, abdominal pain, fever, chills, back pain, or any other complaints. Patient verbalized agreement and understanding with this treatment plan and discharge. <SHAUN López - Last Filed: 02/18/23 18:20> Differential Diagnosis Differential Diagnoses: The differential diagnosis associated with the presentation includes <SHAUN López Last Filed: 02/18/23 18:20> anxiety, hallucinations <SHAUN López Last Filed: 02/18/23 18:20> Consult Healthcare Provider Management of the patient was discussed with: Behavioral Health Provider (spoke with care team as documented in the MDM) <SHAUN López Last Filed: 02/18/23 18:20> Lab Data [facility] Lab Attestation statement: I reviewed the patient's lab results. <SHAUN López Last Filed: 02/18/23 18:20> Result Diagrams: 02/18/23 13:48 02/18/23 13:48 <SHAUN Mckoy Last Filed: 02/18/23 13:31> Labs: Lab Results 02/18/23 02/18/23 02/18/23 Range/Units 13:48 13:48 13:49 WBC 9.0 (4.8-10.8) X10*3/uL RBC 4.88 (4.60-5.80) X10*6/uL Hgb 15.6 (14.0-18.0) g/dl Hct 44.9 (42.0-52.0) % MCV 92.0 (80.0-98.0) fL MCH 32.0 (27.0-33.0) pg MCHC 34.7 (31.0-36.0) g/dl RDW 11.9 (11.0-16.0) % Plt Count 304 (160-400) X10*3/uL MPV 8.5 L (9.4-12.4) fL Immature Gran % (Auto) 0.3 (0.0-0.4) % Neut % (Auto) 77.2 H (45-73) % Lymph % (Auto) 16.5 L (20-40) % [place] % (Auto) 4.9 (2-11) % Eos % (Auto) 0.7 (0-4) % Baso % (Auto) 0.4 (0-2) % Lymph # (Auto) 1.5 (1.2-4.9) X10*3/uL [place] # (Auto) 0.4 (0.1-1.2) X10*3/uL Eos # (Auto) 0.1 (0.0-0.4) X10*3/uL Baso # (Auto) 0.0 (0.0-0.2) X10*3/uL Abs Immat Gran (auto) 0.03 (0.00-0.03) X10*3/uL Absolute Neuts (auto) 7.0 (2.0-8.3) x10*3/uL Absolute Nucleated RBC 0.000 (0.0-0.012) X10*3/uL Nucleated RBC % (auto) 0.0 (0.0-0.2) /100WBC Sodium 138 (135-145) mmol/L Potassium 4.1 (3.3-5.1) mmol/L Chloride 103 (96-108) mmol/L Carbon Dioxide 27 (22-29) mmol/L Anion Gap 12 (12-20) BUN 13 (9-16) mg/dL Creatinine 1.04 (0.5-1.4) mg/dL Estim Creat Clear Calc 122.6 Estimated GFR > 60 Random Glucose 98 (60-115) mg/dL Calcium 9.9 (8.4-10.2) mg/dL Total Bilirubin 0.7 (0.0-1.0) mg/dL AST 46 H (5-37) U/L ALT 82 H (0-40) U/L Alkaline Phosphatase 85 (39-117) U/L Total Protein 7.7 (6.5-8.0) g/dL Albumin 4.8 (3.5-5.0) g/dL Urine Color Urine Appearance Urine pH (5.0-9.0) Ur Specific Tab[place] (1.005-1.025) Urine Protein (Neg-Trace) mg/dL Urine Glucose (UA) (Negative) mg/dL Urine Ketones (Negative) mg/dL Urine Blood (Negative) Urine Nitrite (Negative) Ur Leukocyte Esterase (Negative) Urine Opiates Screen Not Detected (Not Detect) Urine Fentanyl Screen Not Detected (Not Detect) Ur Barbiturates Screen Not Detected (Not Detect) Ur Phencyclidine Scrn Not Detected (Not Detect) Ur Amphetamines Screen Not Detected (Not Detect) U Benzodiazepines Scrn Not Detected (Not Detect) Urine Cocaine Screen Not Detected (Not Detect) U Marijuana (THC) Screen Not Detected (Not Detect) 02/18/23 Range/Units 13:49 WBC (4.8-10.8) X10*3/uL RBC (4.60-5.80) X10*6/uL Hgb (14.0-18.0) g/dl Hct (42.0-52.0) % MCV (80.0-98.0) fL MCH (27.0-33.0) pg MCHC (31.0-36.0) g/dl RDW (11.0-16.0) % Plt Count (160-400) X10*3/uL MPV (9.4-12.4) fL Immature Gran % (Auto) (0.0-0.4) % Neut % (Auto) (45-73) % Lymph % (Auto) (20-40) % [place] % (Auto) (2-11) % Eos % (Auto) (0-4) % Baso % (Auto) (0-2) % Lymph # (Auto) (1.2-4.9) X10*3/uL [place] # (Auto) (0.1-1.2) X10*3/uL Eos # (Auto) (0.0-0.4) X10*3/uL Baso # (Auto) (0.0-0.2) X10*3/uL Abs Immat Gran (auto) (0.00-0.03) X10*3/uL Absolute Neuts (auto) (2.0-8.3) x10*3/uL Absolute Nucleated RBC (0.0-0.012) X10*3/uL Nucleated RBC % (auto) (0.0-0.2) /100WBC Sodium (135-145) mmol/L Potassium (3.3-5.1) mmol/L Chloride (96-108) mmol/L Carbon Dioxide (22-29) mmol/L Anion Gap (12-20) BUN (9-16) mg/dL Creatinine (0.5-1.4) mg/dL Estim Creat Clear Calc Estimated GFR Random Glucose (60-115) mg/dL Calcium (8.4-10.2) mg/dL Total Bilirubin (0.0-1.0) mg/dL AST (5-37) U/L ALT (0-40) U/L Alkaline Phosphatase (39-117) U/L Total Protein (6.5-8.0) g/dL Albumin (3.5-5.0) g/dL Urine Color Yellow Urine Appearance Clear Urine pH 6.0 (5.0-9.0) Ur Specific [place] 1.020 (1.005-1.025) Urine Protein Negative (Neg-Trace) mg/dL Urine Glucose (UA) Negative (Negative) mg/dL Urine Ketones Trace (Negative) mg/dL Urine Blood Negative (Negative) Urine Nitrite Negative (Negative) Ur Leukocyte Esterase Negative (Negative) Urine Opiates Screen (Not Detect) Urine Fentanyl Screen (Not Detect) Ur Barbiturates Screen (Not Detect) Ur Phencyclidine Scrn (Not Detect) Ur Amphetamines Screen (Not Detect) U Benzodiazepines Scrn (Not Detect) Urine Cocaine Screen (Not Detect) U Marijuana (THC) Screen (Not Detect) <SHAUN Mckoy - Last Filed: 02/18/23 13:31> Lab Results 02/18/23 02/18/23 02/18/23 Range/Units 13:48 13:48 13:49 WBC 9.0 (4.8-10.8) X10*3/uL RBC 4.88 (4.60-5.80) X10*6/uL Hgb 15.6 (14.0-18.0) g/dl Hct 44.9 (42.0-52.0) % MCV 92.0 (80.0-98.0) fL MCH 32.0 (27.0-33.0) pg MCHC 34.7 (31.0-36.0) g/dl RDW 11.9 (11.0-16.0) % Plt Count 304 (160-400) X10*3/uL MPV 8.5 L (9.4-12.4) fL Immature Gran % (Auto) 0.3 (0.0-0.4) % Neut % (Auto) 77.2 H (45-73) % Lymph % (Auto) 16.5 L (20-40) % [place] % (Auto) 4.9 (2-11) % Eos % (Auto) 0.7 (0-4) % Baso % (Auto) 0.4 (0-2) % Lymph # (Auto) 1.5 (1.2-4.9) X10*3/uL [place] # (Auto) 0.4 (0.1-1.2) X10*3/uL Eos # (Auto) 0.1 (0.0-0.4) X10*3/uL Baso # (Auto) 0.0 (0.0-0.2) X10*3/uL Abs Immat Gran (auto) 0.03 (0.00-0.03) X10*3/uL Absolute Neuts (auto) 7.0 (2.0-8.3) x10*3/uL Absolute Nucleated RBC 0.000 (0.0-0.012) X10*3/uL Nucleated RBC % (auto) 0.0 (0.0-0.2) /100WBC Sodium 138 (135-145) mmol/L Potassium 4.1 (3.3-5.1) mmol/L Chloride 103 (96-108) mmol/L Carbon Dioxide 27 (22-29) mmol/L Anion Gap 12 (12-20) BUN 13 (9-16) mg/dL Creatinine 1.04 (0.5-1.4) mg/dL Estim Creat Clear Calc 122.6 Estimated GFR > 60 Random Glucose 98 (60-115) mg/dL Calcium 9.9 (8.4-10.2) mg/dL Total Bilirubin 0.7 (0.0-1.0) mg/dL AST 46 H (5-37) U/L ALT 82 H (0-40) U/L Alkaline Phosphatase 85 (39-117) U/L Total Protein 7.7 (6.5-8.0) g/dL Albumin 4.8 (3.5-5.0) g/dL Urine Color Urine Appearance Urine pH (5.0-9.0) Ur Specific Tab[place] (1.005-1.025) Urine Protein (Neg-Trace) mg/dL Urine Glucose (UA) (Negative) mg/dL Urine Ketones (Negative) mg/dL Urine Blood (Negative) Urine Nitrite (Negative) Ur Leukocyte Esterase (Negative) Urine Opiates Screen Not Detected (Not Detect) Urine Fentanyl Screen Not Detected (Not Detect) Ur Barbiturates Screen Not Detected (Not Detect) Ur Phencyclidine Scrn Not Detected (Not Detect) Ur Amphetamines Screen Not Detected (Not Detect) U Benzodiazepines Scrn Not Detected (Not Detect) Urine Cocaine Screen Not Detected (Not Detect) U Marijuana (THC) Screen Not Detected (Not Detect) 02/18/23 Range/Units 13:49 WBC (4.8-10.8) X10*3/uL RBC (4.60-5.80) X10*6/uL Hgb (14.0-18.0) g/dl Hct (42.0-52.0) % MCV (80.0-98.0) fL MCH (27.0-33.0) pg MCHC (31.0-36.0) g/dl RDW (11.0-16.0) % Plt Count (160-400) X10*3/uL MPV (9.4-12.4) fL Immature Gran % (Auto) (0.0-0.4) % Neut % (Auto) (45-73) % Lymph % (Auto) (20-40) % [place] % (Auto) (2-11) % Eos % (Auto) (0-4) % Baso % (Auto) (0-2) % Lymph # (Auto) (1.2-4.9) X10*3/uL [place] # (Auto) (0.1-1.2) X10*3/uL Eos # (Auto) (0.0-0.4) X10*3/uL Baso # (Auto) (0.0-0.2) X10*3/uL Abs Immat Gran (auto) (0.00-0.03) X10*3/uL Absolute Neuts (auto) (2.0-8.3) x10*3/uL Absolute Nucleated RBC (0.0-0.012) X10*3/uL Nucleated RBC % (auto) (0.0-0.2) /100WBC Sodium (135-145) mmol/L Potassium (3.3-5.1) mmol/L Chloride (96-108) mmol/L Carbon Dioxide (22-29) mmol/L Anion Gap (12-20) BUN (9-16) mg/dL Creatinine (0.5-1.4) mg/dL Estim Creat Clear Calc Estimated GFR Random Glucose (60-115) mg/dL Calcium (8.4-10.2) mg/dL Total Bilirubin (0.0-1.0) mg/dL AST (5-37) U/L ALT (0-40) U/L Alkaline Phosphatase (39-117) U/L Total Protein (6.5-8.0) g/dL Albumin (3.5-5.0) g/dL Urine Color Yellow Urine Appearance Clear Urine pH 6.0 (5.0-9.0) Ur Specific [place] 1.020 (1.005-1.025) Urine Protein Negative (Neg-Trace) mg/dL Urine Glucose (UA) Negative (Negative) mg/dL Urine Ketones Trace (Negative) mg/dL Urine Blood Negative (Negative) Urine Nitrite Negative (Negative) Ur Leukocyte Esterase Negative (Negative) Urine Opiates Screen (Not Detect) Urine Fentanyl Screen (Not Detect) Ur Barbiturates Screen (Not Detect) Ur Phencyclidine Scrn (Not Detect) Ur Amphetamines Screen (Not Detect) U Benzodiazepines Scrn (Not Detect) Urine Cocaine Screen (Not Detect) U Marijuana (THC) Screen (Not Detect) <SHAUN López - Last Filed: 02/18/23 18:20> Independent Interpretation I performed an independent interpretation of an: EKG and CT Scan <SHAUN López - Last Filed: 02/18/23 18:20> Interpretation: Vent. Rate: 083 BPM ? ? Atrial Rate: 083 BPM P-R Int: 126 ms? QRS Dur: 086 ms QT Int: 348 ms ? ? ? P-R-T Axes: 036 056 020 degrees QTc Int: 408 ms ? Normal sinus rhythm Normal ECG No previous ECGs available ? Electronically Signed By:VINCE CARRILLO MD Dictated By: Vince Carrillo MD Signed By: Electronically signed by Vince Carrillo MD 02/18/23 1734 EXAMINATION: CT HEAD WITHOUT CONTRAST CLINICAL INFORMATION: Hallucinations? COMPARISON: None available. TECHNIQUE: Contiguous axial imaging was performed from the skull base to vertex without intravenous administration of contrast. This CT examination was performed using dose optimization techniques as appropriate, variously including the following: *Automated exposure control *Adjustment of mA and/or kV according to patient size (this includes techniques or standardized protocols for targeted exams where dose is matched to indication/reason for exam; i.e. extremities or head) *Use of iterative reconstruction technique DLP: 606 mGy-cm FINDINGS: No intra or extra-axial fluid collection or hemorrhage, mass, or mass effect. Calvarium intact. ? CT/CT head/brain wo IV con IMPRESSION: No acute intracranial pathology. Dictated By: Aaron Davis MD Signed By: Electronically signed by Aaron Davis MD 02/18/23 1637 <SHAUN López - Last Filed: 02/18/23 18:20> Critical Care Time Critical Care Time Critical Care Time: Yes <SHAUN López - Last Filed: 02/18/23 18:20> Total Critical Care Time: 35 <SHAUN López - Last Filed: 02/18/23 18:20> Attestation: I spent 35 minutes of Critical Care Time with this patient. This does not include time spent on separately reported billable procedures. <SHAUN López - Last Filed: 02/18/23 18:20> Discharge Plan Discharge Clinical Impression: Hallucinations <SHAUN Mckoy - Last Filed: 02/18/23 13:31> Patient Disposition: Home, Self-Care <SHAUN Mckoy - Last Filed: 02/18/23 13:31> Instructions: Hallucinations (ED) <SHAUN Mckoy - Last Filed: 02/18/23 13:31> Additional Instructions: Follow up with your primary care provider and with the walk-in psychiatrist. Return to the emergency department immediately if your symptoms worsen or if you develop any dizziness, shortness of breath, difficulty b reathing, chest pain, blurry vision, loss of vision, nausea, vomiting, abdominal pain, fever, chills, back pain, or any other complaints. [facility] [place]: [address] [place] [address] Walk in psychiatry from 10am - 12pm Open from 10am - 12pm [facility] [place] [facility]: [address] [place] [address] Walk in psychiatry from 10am - 12pm Open 10/[facility]: [address] [place] [id number] [address] [place] [id number] Hours: M-F 8am to 8pm Wednesday and Wednesday 9am to 5pm <SHAUN Mckoy - Last Filed: 02/18/23 13:31> Prescriptions: No Action fluoxetine 10 mg Capsule 10 mg PO DAILY <SHAUN Mckoy - Last Filed: 02/18/23 13:31> Referrals: Jamal Brice MD [Primary Care Provider] - <SHAUN Mckoy - Last Filed: 02/18/23 13:31> Interventions: ED Discharge Assessment Last Done: 02/18/23 17:56 <SHAUN Mckoy - Last Filed: 02/18/23 13:31> Discharge Date/Time: 02/18/23 17:57 <SHAUN Mckoy - Last Filed: 02/18/23 13:31> Print Language: Lao <SHAUN Mckoy - Last Filed: 02/18/23 13:31>
--- NOTE | 2023-02-18 13:31 | ECG_ITS ---
Test Reason : SOB Blood Pressure : / mmHG Vent. Rate : 083 BPM Atrial Rate : 083 BPM P-R Int : 126 ms QRS Dur : 086 ms QT Int : 348 ms P-R-T Axes : 036 056 020 degrees QTc Int : 408 ms Normal sinus rhythm Normal ECG No previous ECGs available Referred By: Pam Rubin Electronically Signed By:NATALIA CARRILLO MD
[2023-02-18 13:55] LABS: MANUAL DIFF FLAG NO
[2023-02-18 14:01] LABS: Basophils Percent Auto 0.4 % (0-2); Eosinophils Absolute Auto 0.1 X10*3/uL (0.0-0.4); Eosinophils Percent Auto 0.7 % (0-4); Hematocrit 44.9 % (42.0-52.0); Hemoglobin 15.6 g/dl (14.0-18.0); Imm Gran Abs Auto 0.03 X10*3/uL (0.00-0.03); Imm Gran Pct Auto 0.3 % (0.0-0.4); Lymphocytes Absolute Auto 1.5 X10*3/uL (1.2-4.9); Lymphocytes Percent Auto 16.5 % (20-40); Mean Corpuscular HGB Conc 34.7 g/dl (31.0-36.0); Mean Platelet Volume 8.5 fL (9.4-12.4); Monocytes Absolute Auto 0.4 X10*3/uL (0.1-1.2); Monocytes Percent Auto 4.9 % (2-11); Neutrophils Percent Auto 77.2 % (45-73); Platelet Count 304 X10*3/uL (160-400); Red Blood Count 4.88 X10*6/uL (4.60-5.80); Red Cell Distribution Width 11.9 % (11.0-16.0)
[2023-02-18 14:06] LABS: Amphetamine Screen Urine Not Detected (Not Detect); Barbiturates, Urine Not Detected (Not Detect); Benzodiazepines Screen Urine Not Detected (Not Detect); Cannabinoid Screen Urine Not Detected (Not Detect); Cocaine Screen Urine Not Detected (Not Detect); Fentanyl, urine Not Detected (Not Detect); Opiate Screen Urine Not Detected (Not Detect); Phencyclidine Screen Urine Not Detected (Not Detect)
[2023-02-18 14:14] LABS: Alanine Aminotransferase 82 U/L (0-40); Albumin Level 4.8 g/dL (3.5-5.0); Alkaline Phosphatase 85 U/L (39-117); Anion Gap 12 (12-20); Aspartate Amino Transferase 46 U/L (5-37); Bilirubin Total 0.7 mg/dL (0.0-1.0); Blood Urea Nitrogen 13 mg/dL (9-16); Calcium 9.9 mg/dL (8.4-10.2); Carbon Dioxide 27 mmol/L (22-29); Chloride 103 mmol/L (96-108); Creatinine Clr Calc Pharmacy 122.6; Estimated Glomerular Filt Rate > 60; Glucose Random 98 mg/dL (60-115); Potassium 4.1 mmol/L (3.3-5.1); Sodium 138 mmol/L (135-145); Total Protein 7.7 g/dL (6.5-8.0)
[2023-02-18] MEDS: hydrOXYzine HCL 10 MG TABLET PO (16:07)
[2023-02-18 16:23] LABS: Appearance Urine Clear; Color Urine Yellow; Glucose Urine UA Negative (Negative); Leukocyte Esterase Urine Negative (Negative); Nitrite Urine Negative (Negative); Urine Blood Negative (Negative); Urine Ketones Trace mg/dL (Negative); Urine Protein Negative (Neg-Trace)
[2023-02-18 16:29] VITALS: BP 153/86; PULSE 80; RESP 19; TEMP 36.7; O2SAT 97
== END 2023-02-18 17:57 | disposition home or self-care (01) ==
PROVIDERS: Physician Assistant; Physician Assistant Medical; Emergency Provider Emergency Medicine; PCP Internal Medicine
DX: R44.1 Visual hallucinations (principal); F41.9 Anxiety disorder, unspecified; Z79.899 Other long term (current) drug therapy
CPT/HCPCS: 36415; 70450; 80053; 80307; 81003; 85025; 93005; 99284; S9485

== ENCOUNTER 2023-03-12 08:15 | Outpatient (RCR) | payer OTHER, SELFPAY ==
--- NOTE | 2023-02-19 12:04 | MHC.CARE ---
T/w reaches out to pt, who reports feeling slightly better then yesterday. He reports that PHP reached out to him and he is feeling hopeful that PHP on Wednesday will provide relief. Safety plan is discussed, and pt agrees to return to the ED if any of the following signs/symptoms occur: decrease sleep, command auditory hallucination, SI/HI/, unusual behavior, poor judgment. Pt agrees to this and will return to the ED for these reasons or if sx worsen to the extent that he cannot wait for PHP intake on Wednesday. Pt also educated about [id number] and agrees to call if he needs support or is in crisis and is unsure of what steps to take.
--- NOTE | 2023-02-23 11:34 | HO.PS.ADMBH ---
[facility] Date of Service: 02/23/23 Chief Complaint: panic d/o Sources of Information: patient interviewed, chart reviewed and crisis/core team assessment reviewed HPI Medical Problems Affecting Mental Status: No Narrative: Patient is a 22-year-old male, referred by care team due to increased symptoms of anxiety, depression, with panic attacks. History of anxiety since age 14 or 15, when he experienced his 1st panic attack. Currently out of work on leave, lives with girlfriend, whom he describes as supportive. For started working with a psychiatrist and therapist at age 19. Has been referred to [facility] for providers, recently began working with them. Recently presented to [facility] 2 times within past several weeks, with symptoms of describes as dark thoughts, hallucinations, which he describes as auras, difficulty with sleep, guilt, decreased energy, poor concentration, fluctuating appetite, difficulty with ADLs/IADLs, increased in anxiety including nervousness, excessive worry, difficulty relaxing, restlessness. Has also been experiencing panic attacks. Patient reports that when he was 19 he began taking fluoxetine in BuSpar, with good effect. States that he took this for several years, and that his symptoms were well managed. He reports that after he lost his insurance due to a job change, he abruptly stopped taking the medication approximately 1 year ago, and his symptoms returned. He states he started a new job recently, and that his symptoms have been increasing since that time. Patient also used hallucinogenic substances as a teen, he feels he is having flashbacks and nightmares related to that, and he believes that his past use is playing a role in his increased anxiety and panic. He also reports that he was drinking daily for several years in an attempt to manage his symptoms, abruptly stop drinking several weeks ago. Since that time his symptoms have increased, thus presenting to ED twice. He denies any thoughts of harm to self or others, denies SI. No safety concerns. Past Psychiatric History: No inpatient, no PHP, no detox rehab Med trials: Fluoxetine and BuSpar in past with good effect. Ativan in past, (sedating) Recently began working with [facility] providers. 2 times [facility] within past several weeks, due to increased anxiety, depression, panic Medical Evaluation Reviewed: Yes PMFSH Family History: Mother: Opioid use disorder. Father: Panic attacks Sister: ADHD Brother: Anxiety Social History: Raised by parents until they when he was a child. Mother has heroin addiction, patient not sure if she is currently sober. Has several half siblings. Met developmental milestones as expected. Reports he had difficulty paying attention in school, but got good grades. Attended high school, quit in senior year due to panic attacks. 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 Lives with girlfriend of 6 years, disc cry barrier as supportive. Substance History: Nicotine since adolescence, current daily. Cannabis since age 11, daily / occasional, last use a few months ago. Hallucinogens, mushrooms, LSD, Susan, ecstasy. Socially as 16, last use age 15. Reports was using LSD 2 times a week for 3 months. Alcohol, beer daily past 2 years, stopped abruptly 3 weeks ago. History of gambling online and at [employer]. Trauma History: Unknown Meds/Allergies Meds Home Medications Medication Instructions Recorded Confirmed Type fluoxetine 10 mg capsule 20 mg PO DAILY 02/15/23 02/23/23 History Allergies Allergies Allergy/AdvReac Type Severity Reaction Status Date / Time environmental allergies Allergy Runny Nose Verified 02/14/23 20:10 shellfish derived Allergy Unknown Verified 02/14/23 20:10 Mental Status Exam Mental Status Exam Narrative: Well-developed well-nourished male, NAD. No tics or tremors, no abnormal movements. Normal posture and gait. Fully alert, cooperative with interview. Patient Appearance: Well Grooomed Patient Orientation: Person, Place, Time and Situation Level of Consciousness: Appropriate Patient Behavior: Appropriate, Cooperative and Good Eye Contact Mood Description: Depressed and Anxious Affect Description: Anxious Patient Cognition Impaired: No Ability to Follow Directions: Excellent Speech Pattern: Clear Memory Description: Intact Hallucinations: Visual (Describes seeing visions at times, describes as lights/auras. Occur when he is anxious) Delusions: Not Present Thought Process: Intact Thought Content: positive for Intact and positive for Perseveration (Excessive worry) Depressive Symptoms: Increased Anxiety, Difficulty Sleeping, Changes in Appetite (Decreased), Reduced Sex Drive, Feelings of Guilt, Loss of Energy and Difficulty Concentrating Judgement: Fair Judgement and Insight: Poor insight regarding alcohol. Assessment & Plan Assessment & Plan (1) LELO (generalized anxiety disorder): Status: Acute Code(s): F41.1 - Generalized anxiety disorder Assessment and Plan: Patient is a 22-year-old male, referred by care team due to increased symptoms of anxiety, depression, with panic attacks. History of anxiety since age 14 or 15, when he experienced his 1st panic attack. 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 He has excessive worry, has had recent panic attacks. Reports a history of depression symptoms. Denies any obsessive or intrusive thoughts. Does report having difficulty with sleep, decreased energy, poor concentration, decreased appetite, feeling guilt. Denies any SI either active or passive. No history michelle or hypomania symptoms. Has been experiencing some visual hallucinations, states that they occur when he has increased anxiety. They present as auras of light. Has had increased symptoms of anxiety, including difficulty relaxing, excessive worry, restlessness, sense of impending doom, and several recent panic attacks. He was engaged with treatment for several years starting at age 19. At that time he was receiving fluoxetine 40 mg daily, with BuSpar 5 mg b.i.d.. He states that his symptoms were well managed during that time. He reports that approximately a year ago he has changed jobs, and stop the medications abruptly due to insurance issues. He reports his symptoms have steadily been increasing. Had recent job change, difficulty adjusting to new employment setting, which has caused increase in symptoms. Patient has remote history of hallucinogen use as a teen, believes he is experiencing flashbacks and nightmares, believes that this substance use is playing a role in his current symptoms. He also had been drinking daily for past 2 years as a way to treat his symptoms. Was drinking at least 3-4 beers every day. States he was drinking much more on weekends. He stopped abruptly 3 weeks ago. He displays little insight regarding relationship to abrupt alcohol cessation and his sudden escalation of symptoms, which have resulted in to emergency department presentations since that time, for increased anxiety and panic attacks. We discussed various medication options. Patient has done very well with combination of fluoxetine and BuSpar in the past. Has recently been started on fluoxetine 10 mg. We discussed increasing today to 20 mg, with intention to titrate upward as needed. We discussed resuming BuSpar 5 mg b.i.d., as well as adding clonidine p.r.n. to help with physical symptoms of anxiety. He was in agreement with this plan. We discussed indications, risks including adverse effects both serious uncommon, benefits, alternatives of treatment recommendations for anxiety and panic. He had trialed lorazepam in the past, and did not like it. He is willing to resume BuSpar, increase fluoxetine, and try clonidine p.r.n. at this time. Patient is agreeable to participating in substance use groups at this time, in order to learn about effects of alcohol and other substance use on psychiatric symptoms. (2) Panic: Status: Acute Code(s): F41.0 - Panic disorder [episodic paroxysmal anxiety] Plan Provisional diagnoses include depression, alcohol abuse. 1. Continue with current [facility] plan of care. 2. Increase fluoxetine to 20 mg daily. 3. Start BuSpar 5 mg b.i.d.. 4. Start clonidine 0.5-1 mg b.i.d. p.r.n. for anxiety. Reviewed parameters, hold for blood pressure under 90/60. 5. Follow-up as per protocol. Patient educated on: diagnosis, medication risk/benefits, substance abuse and therapeutic strategies Informed Consent: understands Reason for continued partial hosp. stay Substantial Risk for: inability to function and rapid decompensation Certification I certify that partial hospital treatment is medically necessary due to the symptoms and problems resulting from the patient's mental illness and the failure to treat the patient at the partial hospital level of care would likely result in the patient requiring inpatient psychiatric care which could not be prevented at a less intensive level of care. Time Spent With Patient Time: Total time managing care of this patient today ___60_ minutes.
[2023-02-23 11:36] VITALS: BP 118/72; PULSE 68; TEMP 37.3
--- NOTE | 2023-02-23 12:45 | PC.ADMIT ---
Patient is a 22 year old male who was referred to [facility] by ER care team where patient was seen d/t increased anxiety and depression sxs including panic attacks and having the feeling he is going to as a result. Patient reports he was drinking 4 beers daily up until 3 weeks ago with the exception of February 12 which patient stated that is the last time he had a drink. He reports history of trying different hallucinogens, last time was age 15. He is currently taking a leave of absence from work d/t his symptoms. Patient also stated he doesn't feel like himself anymore and feels he is looking through different lenses and not attached to his body. He also reports things look digital. Patient denied SI or thoughts to kill himself. He was given a copy of his safety plan if needed and I reviewed this with him. He presents with depressed mood and anxious affect. He is alert and oriented x4. Calm and cooperative. Medications reconciled with patient and patient's pharmacy. He reports taking medications as prescribed.
--- NOTE | 2023-02-25 15:50 | HO.PHP ---
Clients case was reviewed and opened today in treatment team.
--- NOTE | 2023-03-03 12:08 | P.PNPSP_ITS ---
Subjective Subjective Date of Service: 03/03/23 Reason For Visit: panic d/o Medical Problems Affecting Mental Status: No Interim History: Mixed episodes depression/happy. concerned it is from prozac dose increase. More panic attacks, surrounding expected return to work, and falling asleep. Afraid he is going to during his sleep. Sleeping 6 to 8 hours per night. No SI, no safety concerns. Medication Compliance: Yes Side effects from medications: Yes (concerned re: fluoxetine, mood instability) Attending Groups: Yes Review of Systems Acute medical concerns: No Medical Review of Systems: unchanged Review of Systems Review of Systems Yes all other systems are reviewed and are negative Constitutional: Reports no additional constitutional complaints Mental Status Exam Mental Status Exam Patient Appearance: Well Grooomed Patient Orientation: Person, Place, Time and Situation Level of Consciousness: Appropriate Patient Behavior: Appropriate, Cooperative and Good Eye Contact Mood Description: Depressed and Anxious Affect Description: Anxious (increased, with panic at times) Patient Cognition Impaired: No Ability to Follow Directions: Good Speech Pattern: Clear Memory Description: Intact Delusions: Not Present Thought Process: Intact and Rumination (concerned for physical health, fear of dying, return to work) Thought Content: positive for Intact, positive for Obsessional Thoughts (fear of being trapped in equipment at work) and positive for Perseveration (Excessive worry) Depressive Symptoms: Increased Anxiety, Diff. Making Decisions, Loss of Int. in Activity, Hopelessness and Loss of Energy Judgement: Fair Judgement and Insight: Poor insight regarding alcohol. Diagnostics Vital Signs (24Hr): BMI result Body Mass Index 30.0 Assessment & Plan Assessment & Plan (1) LELO (generalized anxiety disorder): Status: Acute Code(s): F41.1 - Generalized anxiety disorder Assessment and Plan: Mixed episodes depression/happy. Reports that 1 day he is happy , the next day he feels sad . He feels hopeless on the days he is not doing well. concerned it is from prozac dose increase. We reviewed symptoms of activation, as well as michelle/hypomania. Denies any history of any type of manic or hypomanic episodes, or mood instability. Asked if he is continuing alcohol, he states that he has not been drinking since prior to starting program. More panic attacks, surrounding expected return to work, and falling asleep. 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 He has obsessional thoughts, but no compulsions reported at this time. Consider Possible provisional diagnosis OCD. Discussed fact that he took fluoxetine 40 mg for approximately 3 years, with no increased anxiety, no panic. Suggested if he feels uncomfortable we could change to duloxetine. He states he would prefer just to remain with current dose of fluoxetine at this time, not interested in a change. However, he will look up the medication duloxetine at home in read about it. Afraid he is going to during his sleep. When asked if he feels the ER intrusive, he states not actual intrusive, but more obsessional in nature. Sleeping 6 to 8 hours per night. No SI, no safety concerns. Discussed adding hydroxyzine, he states he had hydroxyzine in the hospital and it made his symptoms worse. Discussed adding clonidine, he states he is afraid to take it due to the potential to lower blood pressure. Discussed increasing BuSpar, as he is currently taking low-dose. He was willing to trial increased dose of BuSpar at this. (2) Panic: Status: Acute Code(s): F41.0 - Panic disorder [episodic paroxysmal anxiety] Plan 1. Consider OCD or depression as provisional diagnoses, Rule out bipolar disorder.. 2. Increase BuSpar to 10 mg b.i.d.. 3. Continue with current [facility] plan of care. 4. Continue fluoxetine at 20 mg daily. 5. Follow-up as per protocol. Patient educated on: diagnosis, medication risk/benefits, substance abuse and therapeutic strategies Informed Consent: understands Reason for contiued partial hosp. stay Substantial Risk for: harm to self, inability to function and rapid decompensation Certification I certify that partial hospital treatment is medically necessary due to the symptoms and problems resulting from the patient's mental illness and the failure to treat the patient at the partial hospital level of care would likely result in the patient requiring inpatient psychiatric care which could not be prevented at a less intensive level of care. Total time managing care of this patient today __20__ minutes. Discharge Plan Discharge Attending provider: Solo Khan Medications: New clonidine HCl 0.1 mg tablet See Rx Instructions .ROUTE .COMPLEX Qty: 14 0RF Rx Instructions: Take 0.05mg (1/2 tab) to 0.1 mg (1 tab) orally twice daily for anxiety. Hold for BP under 90/60. buspirone 10 mg tablet 10 mg PO BID Qty: 14 0RF No Action fluoxetine 10 mg Capsule 20 mg PO DAILY Stand Alone Forms: Patient Portal Discharge page Patient Education: Clonidine (By mouth), Buspirone (By mouth)
--- NOTE | 2023-03-11 11:40 | P.PNPSP_ITS ---
Subjective Subjective Date of Service: 03/11/23 Reason For Visit: panic d/o Medical Problems Affecting Mental Status: No Interim History: Much less anxious, although still present. Denies any depression symptoms. No SI/HI, feels safe. Overall feels much improved. Not utilizing clonidine. Had 1st outpatient therapy session. Has appointment with outpatient psychiatric provider scheduled for March 24. Has yet started the increased dose of BuSpar, will start today. Feels stable for discharge from [facility] tomorrow. Medication Compliance: Intermittent Side effects from medications: No Attending Groups: Yes Review of Systems Acute medical concerns: No Medical Review of Systems: unchanged Review of Systems Review of Systems Yes all other systems are reviewed and are negative Constitutional: Reports no additional constitutional complaints Mental Status Exam Mental Status Exam Narrative: NAD. Patient Appearance: Well Grooomed Patient Orientation: Person, Place, Time and Situation Level of Consciousness: Appropriate Patient Behavior: Appropriate, Cooperative and Good Eye Contact Mood Description: Anxious (slight) Affect Description: Appropriate Patient Cognition Impaired: No Ability to Follow Directions: Good Speech Pattern: Clear Memory Description: Intact Delusions: Not Present Thought Process: Intact and Linear Thought Content: positive for Intact and positive for Linear Depressive Symptoms: Increased Anxiety Judgement: Good Diagnostics Vital Signs (24Hr): BMI result Body Mass Index 30.0 Assessment & Plan Assessment & Plan (1) LELO (generalized anxiety disorder): Status: Acute Code(s): F41.1 - Generalized anxiety disorder Assessment and Plan: Much less anxious, although still present. Denies any depression symptoms. No SI/HI, feels safe. Overall feels much improved. Not utilizing clonidine, states he has not felt it necessary at this time. Had 1st outpatient therapy session, is hopeful regarding therapy going forward. Has appointment with outpatient psychiatric provider scheduled for March 24. Has not yet started the increased dose of BuSpar, will start today. States he was completing the 5 mg supply that he had 1st. Feels stable for discharge from [facility] tomorrow. Plan 1. Patient appears stable for discharge from [facility]. 2. Patient to follow-up with outpatient providers going forward. Patient educated on: diagnosis, medication risk/benefits and therapeutic strategies Informed Consent: understands Reason for contiued partial hosp. stay Substantial Risk for: stable for discharge Certification I certify that partial hospital treatment is medically necessary due to the symptoms and problems resulting from the patient's mental illness and the failure to treat the patient at the [facility] level of care would likely result in the patient requiring inpatient psychiatric care which could not be prevented at a less intensive level of care. Total time managing care of this patient today __20__ minutes. Discharge Plan Discharge Attending provider: Solo Khan Additional Instructions: Omar is discharging from [facility] level of care and will be stepping down to his outside providers. Omar has a scheduled appointment with his therapist through [facility], Gagandeep, sometime next week. Omar was unable to recall date and t brittani for that. Omar also ill be meeting with his med provider, Laurent, through [facility] on March 24, 2023 at 1 PM. Medications: New clonidine HCl 0.1 mg tablet See Rx Instructions .ROUTE .COMPLEX Qty: 14 0RF Rx Instructions: Take 0.05mg (1/2 tab) to 0.1 mg (1 tab) orally twice daily for anxiety. Hold for BP under 90/60. buspirone 10 mg tablet 10 mg PO BID Qty: 14 0RF fluoxetine 20 mg tablet 20 mg PO DAILY Qty: 14 0RF buspirone 10 mg tablet 10 mg PO BID Qty: 60 0RF Discontinued fluoxetine 10 mg Capsule 20 mg PO DAILY Stand Alone Forms: Patient Portal Discharge page Patient Education: Clonidine (By mouth), Buspirone (By mouth), Panic Disorder (DC)
--- NOTE | 2023-03-12 08:45 | HO.PHP ---
The clients case was reviewed and opened in treatment team
== END 2023-03-12 23:59 | disposition home or self-care (01) ==
LOC: HO.PHPA 08:15
PROVIDERS: Visit Provider Psychiatry & Neurology Psychiatry
DX: F41.1 Generalized anxiety disorder (principal); F41.0 Panic disorder [episodic paroxysmal anxiety]; Z79.899 Other long term (current) drug therapy
CPT/HCPCS: 90791; 90853

== ENCOUNTER 2023-04-30 14:03 | Outpatient (REF) | payer OTHER, SELFPAY ==
[2023-04-30 16:35] LABS: Alanine Aminotransferase 34 U/L (0-40); Albumin Level 4.5 g/dL (3.5-5.0); Alkaline Phosphatase 80 U/L (39-117); Aspartate Amino Transferase 16 U/L (5-37); Bilirubin Direct 0.2 mg/dL (0.0-0.5); Bilirubin Total 0.6 mg/dL (0.0-1.0); Magnesium 1.9 mg/dL (1.6-2.6); Total Protein 7.5 g/dL (6.5-8.0)
[2023-04-30 16:51] LABS: Thyroid Stimulating Hormone 0.53 uIU/mL (0.32-4.0); Vitamin D 25-OH Total 32.1 ng/mL (>30)
[2023-04-30 17:02] LABS: Folate 7.3 ng/mL (> or = 4.0)
[2023-05-05 15:48] LABS: Vitamin B1 18 nmol/L (8-30)
== END 2023-04-30 14:04 | disposition home or self-care (01) ==
LOC: HO.LAB 14:03
PROVIDERS: Visit Provider Clinical Nurse Specialist Psychiatric/Mental Health
DX: F41.1 Generalized anxiety disorder (principal); F33.9 Major depressive disorder, recurrent, unspecified
CPT/HCPCS: 36415; 80076; 82306; 82746; 83735; 84425; 84443

== ENCOUNTER → 2023-05-07 08:00 | Outpatient (BNV) | payer OTHER, SELFPAY | PROVIDERS: Visit Provider Clinical Nurse Specialist Psychiatric/Mental Health | DX: F32.9 Major depressive disorder, single episode, unspecified (principal) | CPT/HCPCS: 90832; 90837; 99212; 99213; 99214 ==

== ENCOUNTER 2023-05-14 08:15 | Outpatient (RCR) | payer OTHER, SELFPAY ==
[2023-04-28 11:43] VITALS: BP 124/86; PULSE 80; TEMP 36.4
[2023-04-28 11:45] VITALS: BMI 28.3
--- NOTE | 2023-04-29 12:24 | P.HPPSP_ITS ---
HPI Date of Service: 04/29/23 Chief Complaint: panic attacks Sources of Information: patient interviewed, chart reviewed and crisis/core team assessment reviewed Additional Sources of Information: 22 yo male self referred to [facility] due to depression, anxiety and panic attacks; pt has been unable to work ; he was discharged from [facility] 03/11/23 and returned due to worsening depression, isolation, low energy, loss of pleasure passive SI and panic attacks HPI Healthcare Proxy: No Guardianship: No Medical Problems Affecting Mental Status: No Narrative: 22 yo male self referred to [facility] due to depression, anxiety and panic attacks; pt has been unable to work ; he was discharged from [facility] 03/11/23 and returned due to worsening depression, isolation, low energy, loss of pleasure passive SI and panic attacks; pt states a recent stressor that increased his depression and anxiety s learning that his 3 yo nnephew suddenly and that another nephew has terminal cancer Past Psychiatric History: [facility] february 2023 No inpatient, no detox rehab Med trials: Fluoxetine and BuSpar in past with good effect. Ativan in past, (sedating) Recently began working with [facility] providers. 2 times [facility] ED within past several weeks, due to increased anxiety, depression, panic PMFSH Narrative: no changes Family History: Mother: Opioid use disorder. Father: Panic attacks Sister: ADHD Brother: Anxiety Social History: Raised by parents until they when he was a child. Mother has heroin addiction, patient not sure if she is currently sober. Has several half siblings. Met developmental milestones as expected. Reports he had difficulty paying attention in school, but got good grades. Attended high school, quit in senior year due to panic attacks. 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 Lives with girlfriend of 6 years, disc cry barrier as supportive. Substance History: used various drug as teen- x 1 yr mushrooms, brett lsd ; used cannabis age [age] but once caused panic attack he stopped. Trauma History: Unknown Diagnostics Vital Signs (24Hr): BMI result Body Mass Index 28.3 Meds/Allergies Meds Home Medications Medication Instructions Recorded Confirmed Type buspirone 10 mg tablet 10 mg PO TID 04/28/23 04/28/23 History fluoxetine 40 mg capsule 40 mg PO DAILY 04/28/23 04/28/23 History guanfacine 1 mg tablet 1 mg PO BEDTIME 04/28/23 04/28/23 History Allergies Allergies Allergy/AdvReac Type Severity Reaction Status Date / Time environmental allergies Allergy Runny Nose Verified 02/14/23 20:10 shellfish derived Allergy Unknown Verified 02/14/23 20:10 Mental Status Exam Mental Status Exam Patient Appearance: Appropriate Patient Orientation: Person, Place, Time and Situation Level of Consciousness: Awake Patient Behavior: Appropriate and Anxious Mood Description: Anxious Affect Description: Anxious Patient Cognition Impaired: No Ability to Follow Directions: Fair Speech Pattern: Clear and Perseverating Memory Description: Intact Hallucinations: None Delusions: Not Present Perceptual Disturbances: Depersonalization Thought Process: Intact and Goal Oriented Thought Content: positive for Intact and positive for Goal Oriented Judgement: Fair Assessment & Plan Assessment & Plan (1) Panic: Status: Acute Code(s): F41.0 - Panic disorder [episodic paroxysmal anxiety] (2) LELO (generalized anxiety disorder): Status: Acute Code(s): F41.1 - Generalized anxiety disorder (3) Major depression: Status: Acute Code(s): F32.9 - Major depressive disorder, single episode, unspecified Plan Assessment: 24 yo male readmitted to [facility] due to worsening depression, anxiety, panic attacks, isolation, and passive SI plan: admit to [facility] group treatment per protocol continue medications as prescribed by outpatient provider labs: liver profile, folic acid tsh, magnesium level, vit d level, thiamine Patient educated on: diagnosis, medication risk/benefits, substance abuse and therapeutic strategies Informed Consent: understands and further education needed Reason for continued partial hosp. stay Substantial Risk for: harm to self, inability to function and rapid decompensation Certification I certify that partial hospital treatment is medically necessary due to the symptoms and problems resulting from the patient's mental illness and the failure to treat the patient at the partial hospital level of care would likely result in the patient requiring inpatient psychiatric care which could not be prevented at a less intensive level of care. Time Spent With Patient Time: Total time managing care of this patient today ____ 60minutes.
--- NOTE | 2023-04-29 16:46 | HO.PHP ---
Clients case was reviewed and opened today in treatment team.
--- NOTE | 2023-05-04 16:44 | HO.PHP ---
[facility] staff reached out to Omar's OP therapist but the therapist was unavailable at this time. [facility] staff provided the administrative program specialist with information to have him call back. [facility] staff is awaiting a phone call back to inform him how Omar is doing and when his discharge date will be.
--- NOTE | 2023-05-07 14:22 | HO.PHP ---
PHP staff reached out to Omar's OP therapist and left a VM. PHP staff is awaiting a returned phone call.
--- NOTE | 2023-05-11 16:44 | HO.PHP ---
PHP staff spoke to Omar's OP therapist, Gagandeep Serrano. PHP staff informed Gagandeep of Omar's discharge date from the program and explored if he is able to increase his appointments to twice a week. Gagandeep mentioned that he wouldn't be able to see him for more then twice a month and expressed that he is at the urgent care clinic. PHP staff explored if he will be transitioning to a more permanent therapist. Gagandeep disclosed that he spoke with Omar about it and he would like to continue with him until he is able to find someone he is comfortable with. [facility] staff lastly explored DBT. Gagandeep was not familiar with the DBT groups through [facility] and asked the clinician for the information that was provided around the DBT groups. [facility] staff was receptive and obtained his email to send along. Gagandeep disclosed he will try to do it internally. [facility] staff was receptive. Gagandeep informed the clinican what him and Omar have been working on.
--- NOTE | 2023-05-14 10:20 | P.PNPSP_ITS ---
Subjective Subjective Date of Service: 05/14/23 Reason For Visit: panic attacks Healthcare Proxy: No Guardianship: No Medical Problems Affecting Mental Status: No Interim History: Anil is seen for follow-up/discharge from his engagement at the partial hospital program. Records were reviewed. He has been attending groups and is ending today. He states that it has been quite helpful to him, giving him new tools an d insight into his problems. He has continued to be alcohol free for 3 months. He now is engaged in playing video games. He gets involved in activities such as marijuana use when he was younger, alcohol use more recently and as soon as he realizes the effects on him he is able to stop but he is unable to modulate his activity at the time. He had some questions about diagnosis of OCD which we discussed. It appears to be more in the realm of an addictive has SPECT of his personality than OCD. Current Rivas is on Prozac 40 mg and buspirone. He denies any side effects. He has an appointment with his outpatient provider on 05/25/23. No prescriptions were given at discharge and he has enough of his supply. Medication Compliance: Yes Side effects from medications: No Attending Groups: Yes Review of Systems Review of Systems Yes all other systems are reviewed and are negative Mental Status Exam Mental Status Exam Narrative: In today's visit he is alert, oriented and pleasant. Normal speech. Good eye contact. Affect is appropriate and varied. No overt signs of depression or anxiety. No signs of psychosis. Cognitively he is intact. No SI/HI upon inqui ry. Judgment is intact. Diagnostics Vital Signs (24Hr): BMI result Body Mass Index 28.3 Assessment & Plan Assessment & Plan (1) Major depression: Status: Acute Code(s): F32.9 - Major depressive disorder, single episode, unspecified Plan Continue current to medications. Keep his appointment with his outpatient providers. No prescriptions were sent in today Certification I certify that partial hospital treatment is medically necessary due to the symptoms and problems resulting from the patient's mental illness and the failure to treat the patient at the partial hospital level of care would likely result in the patient requiring inpatient psychiatric care which could not be prevented at a less intensive level of care. Total time managing care of this patient today ____ minutes. Discharge Plan Discharge Attending provider: Solo Khan Medications: No Action buspirone 10 mg tablet 10 mg PO TID fluoxetine 40 mg Capsule 40 mg PO DAILY guanfacine 1 mg Tablet 1 mg PO BEDTIME Patient Comments: Patient stated he has not started the medication again. Stand Alone Forms: Patient Portal Discharge page Patient Education: Depression (DC)
== END 2023-05-14 23:59 | disposition home or self-care (01) ==
LOC: HO.PHPA 08:15
PROVIDERS: Visit Provider Psychiatry & Neurology Psychiatry
DX: F41.0 Panic disorder [episodic paroxysmal anxiety] (principal); F41.1 Generalized anxiety disorder; F32.9 Major depressive disorder, single episode, unspecified; Z79.899 Other long term (current) drug therapy
CPT/HCPCS: 90791; 90853

== ENCOUNTER 2024-04-20 14:57 | Emergency (ER) | payer OTHER, SELFPAY ==
--- NOTE | ~2024-04-20 | XR_ITS ---
EXAMINATION: XR CHEST CLINICAL INFORMATION: Chest tightness COMPARISON: None available. TECHNIQUE: 2 views of the chest were obtained. FINDINGS: No significant abnormality is noted involving the heart, lungs, mediastinum, bony thorax or soft tissues. XR/XR chest 2V IMPRESSION: Unremarkable examination.
[2024-04-20 15:03] VITALS: BP 153/112; PULSE 104; RESP 16; TEMP 37.1; O2SAT 100; BMI 31.2
--- NOTE | 2024-04-20 15:07 | ECG_ITS ---
Test Reason : PALPITATIONS Blood Pressure : / mmHG Vent. Rate : 099 BPM Atrial Rate : 099 BPM P-R Int : 124 ms QRS Dur : 086 ms QT Int : 318 ms P-R-T Axes : 040 059 013 degrees QTc Int : 408 ms Normal sinus rhythm Normal ECG When compared with ECG of 18-FEB-2023 13:36, No significant change was found Referred By: Emiliano Justin Electronically Signed By:TAMMIE ALVARADO
--- NOTE | 2024-04-20 15:08 | ED_ITS ---
HPI - General Adult General Chief complaint: General Medical Stated complaint: shakiness, legs are sore, vision changes Time Seen by Provider: 04/20/24 15:37 History of Present Illness ED Provider: Dr. Kim HPI narrative: 23 y/o M patient; H anxiety, depression; presents from home reporting 24 hours of palpitations and shakiness. Denies: chest pain, SOB, cough/congestion, nausea/vomiting, abdominal pain, fever or chills. Denies family cardiac history. Denies recreational drug use or recent alcohol use. Related Data Home Medications ?Medication ?Instructions ?Recorded ?Confirmed buspirone 10 mg tablet 10 mg PO TID 04/28/23 04/28/23 fluoxetine 40 mg capsule 40 mg PO DAILY 04/28/23 04/28/23 guanfacine 1 mg tablet 1 mg PO BEDTIME 04/28/23 04/28/23 Allergies Allergy/AdvReac Type Severity Reaction Status Date / Time environmental allergies Allergy Runny Nose Verified 04/20/24 15:07 shellfish derived Allergy Unknown Verified 04/20/24 15:07 Review of Systems 2 Review of Systems: Yes all other systems are reviewed and are negative Neurologic: Denies Sensory deficit (Neuro) [facility] Past Medical History Attestation statement: The following information was validated with the patient. Source: old records reviewed Social History Social History Household Members: Significant Other and Other Household Members Other:: Lives with his girlfriend and uncle Alcohol intake: current Alcohol intake frequency: 3 or more drinks per day Alcohol type: beer and hard liquor Substance Use Type: Marijuana Advance Directives: No Advance Directives Information Provided: No Physical Exam ED Vital Signs: Vital Signs - 24 hr 04/20/24 15:03 04/20/24 16:56 Temperature 98.8 F 97.9 F Pulse Rate 104 H 93 Respiratory Rate 16 18 Blood Pressure 153/112 H 159/89 H Pulse Oximetry 100 98 Oxygen Delivery Method Room Air Room Air BMI result Body Mass Index 31.2 Patient is afebrile, mildly tachycardic at 104BPM, and hypertensive 153/112mmHg. Const General: cooperative Orientation/consciousness: patient oriented x3 HENMT Head: Yes normal to inspection and Yes atraumatic Eyes General: appearance normal, both eyes and all related structures Pupils: Equal, round and reactive pupils present EOM: EOMs intact bilaterally Neck Neck: Yes normal visual inspection, Yes full ROM, Yes supple and No tender Chest Chest palpation & inspection: normal inspection of the chest and normal palpation of entire chest wall Resp Effort & Inspection: normal respiratory effort, able to speak in complete sentences, no cough and no respiratory distress Auscultation: clear to auscultation bilaterally Cardio Rate: tachycardic Rhythm: regular rhythm Peripheral pulses: Peripheral pulses 2+ throughout GI Inspection: Yes normal to inspection, No Abdominal wall edema and No distended Palpation (GI): Soft to palpation, not firm, nontender, no guarding and not rigid Auscultation: normal bowel sounds General: Yes no CVA tenderness Back/Spine/Pelvis Back: no CVA tenderness Neuro General: patient oriented x3 Cranial nerves: Yes Equal, round and reactive pupils present Motor exam (neuro): 5/5 motor strength present throughout Sensory Exam: No Sensory deficit (Neuro) Course Course Course Narrative: RME: Done by SHAUN Justin. 23-year-old male presents to ED for palpitations since yesterday, shakiness, fatigue, and cramping of extremities. EKG labs ordered. No leg swelling pitting edema or calf tenderness. Lungs clear. Reevaluation(s) Reevaluation #1: Patient is afebrile, mildly tachycardic, and hypertensive. Reviewed triage orders - added CXR and respiratory swab. Laboratory studies with mild leukocytosis 12.5k. Electrolytes unremarkable. Baseline Cr 1.02. Troponin negative. TSH unremarkable. CPK unremarkable. CXR unremarkable. COVID/Flu/RSV negative. Plan: Discharge to home with PCP follow up Return precautions given Medications Administered Discontinued Medications Generic Name Dose Route Start Last Admin Trade Name Freq PRN Reason Stop Dose Admin Sodium Chloride 1,000 mls @ 999 mls/hr 04/20/24 16:00 04/20/24 16:56 Ns IV 04/20/24 17:00 Infused .Q1H1M BILL Infusion Medical Decision Making Lab Data 04/20/24 15:25 04/20/24 15:25 Labs: Lab Results 04/20/24 04/20/24 Range/Units 15:25 15:57 WBC 12.5 H (4.8-10.8) X10*3/uL RBC 5.07 (4.60-5.80) X10*6/uL Hgb 16.0 (14.0-18.0) g/dl Hct 45.9 (42.0-52.0) % MCV 90.5 (80.0-98.0) fL MCH 31.6 (27.0-33.0) pg MCHC 34.9 (31.0-36.0) g/dl RDW 11.9 (11.0-16.0) % Plt Count 325 (160-400) X10*3/uL MPV 8.3 L (9.4-12.4) fL Immature Gran % (Auto) 0.5 H (0.0-0.4) % Neut % (Auto) 71.7 (45-73) % Lymph % (Auto) 22.0 (20-40) % [place] % (Auto) 4.8 (2-11) % Eos % (Auto) 0.6 (0-4) % Baso % (Auto) 0.4 (0-2) % Lymph # (Auto) 2.8 (1.2-4.9) X10*3/uL [place] # (Auto) 0.6 (0.1-1.2) X10*3/uL Eos # (Auto) 0.1 (0.0-0.4) X10*3/uL Baso # (Auto) 0.1 (0.0-0.2) X10*3/uL Abs Immat Gran (auto) 0.06 H (0.00-0.03) X10*3/uL Absolute Neuts (auto) 9.0 H (2.0-8.3) x10*3/uL Absolute Nucleated RBC 0.000 (0.0-0.012) X10*3/uL Nucleated RBC % (auto) 0.0 (0.0-0.2) /100WBC PT 11.6 (11.1-13.3) SEC INR 1.0 (0.9-1.1) APTT 32.1 (26.0-36.8) SEC Sodium 139 (135-145) mmol/L Potassium 4.1 (3.3-5.1) mmol/L Chloride 103 (96-108) mmol/L Carbon Dioxide 25 (22-29) mmol/L Anion Gap 15 (12-20) BUN 18 H (9-16) mg/dL Creatinine 1.02 (0.5-1.4) mg/dL Estim Creat Clear Calc 122.5 Estimated GFR > 60 Random Glucose 90 (60-115) mg/dL Calcium 10.4 H (8.4-10.2) mg/dL Magnesium 2.4 (1.6-2.6) mg/dL Total Bilirubin 0.4 (0.0-1.0) mg/dL AST 27 (5-37) U/L ALT 50 H (0-40) U/L Alkaline Phosphatase 90 (39-117) U/L Total Creatine Kinase 132 (38-174) U/L Troponin I High Sens < 2.7 (<3.5-35.0) ng/L Total Protein 8.5 H (6.5-8.0) g/dL Albumin 4.9 (3.5-5.0) g/dL Lipase 20 (8-78) U/L TSH 0.96 (0.32-4.0) uIU/mL Influenza Type A (PCR) NEGATIVE (Negative) Influenza Type B (PCR) NEGATIVE (Negative) RSV RNA Qual (PCR) NEGATIVE (Negative) SARS-CoV-2 RNA (RT-PCR) NEGATIVE (Negative) Radiology Impression Discussion of test interpretation with radiology: I have reviewed the radiologist's reading. Radiologist Impression: EXAMINATION: XR CHEST CLINICAL INFORMATION: Chest tightness COMPARISON: None available. TECHNIQUE: 2 views of the chest were obtained. FINDINGS: No significant abnormality is noted involving the heart, lungs, mediastinum, bony thorax or soft tissues. XR/XR chest 2V IMPRESSION: Unremarkable examination. Discharge Plan Discharge Clinical Impression: Palpitation Patient Disposition: Home, Self-Care Instructions: Heart Palpitations (DC) Additional Instructions: As we discussed, you were seen today for heart palpitations. Your emergency work up was reassuring. Your EKG, CXR, and labs (including studies of your heart, thyroid, and muscle break down) were reassuring. Please follow up with your PCP within the next 2 - 3 days for re-evaluation. Discuss your high blood pressure readings with your PCP. Return to the emergency department for: Chest pain Difficulty breathing Passing out Prescriptions: No Action buspirone 10 mg tablet 10 mg PO TID fluoxetine 40 mg Capsule 40 mg PO DAILY guanfacine 1 mg Tablet 1 mg PO BEDTIME Patient Comments: Patient stated he has not started the medication again. Print Language: Dominican
[2024-04-20 15:33] LABS: MANUAL DIFF FLAG NO
[2024-04-20 15:35] LABS: Basophils Absolute Auto 0.1 X10*3/uL (0.0-0.2); Basophils Percent Auto 0.4 % (0-2); Eosinophils Absolute Auto 0.1 X10*3/uL (0.0-0.4); Eosinophils Percent Auto 0.6 % (0-4); Hematocrit 45.9 % (42.0-52.0); Imm Gran Abs Auto 0.06 X10*3/uL (0.00-0.03); Imm Gran Pct Auto 0.5 % (0.0-0.4); Lymphocytes Absolute Auto 2.8 X10*3/uL (1.2-4.9); Mean Corpuscular HGB Conc 34.9 g/dl (31.0-36.0); Mean Corpuscular Hemoglobin 31.6 pg (27.0-33.0); Mean Corpuscular Volume 90.5 fL (80.0-98.0); Mean Platelet Volume 8.3 fL (9.4-12.4); Monocytes Absolute Auto 0.6 X10*3/uL (0.1-1.2); Monocytes Percent Auto 4.8 % (2-11); Neutrophils Percent Auto 71.7 % (45-73); Platelet Count 325 X10*3/uL (160-400); Red Blood Count 5.07 X10*6/uL (4.60-5.80); Red Cell Distribution Width 11.9 % (11.0-16.0); White Blood Count 12.5 X10*3/uL (4.8-10.8)
[2024-04-20 15:46] LABS: Prothrombin Time 11.6 SEC (11.1-13.3)
[2024-04-20 15:49] LABS: Partial Thromboplastin Time 32.1 SEC (26.0-36.8)
[2024-04-20 15:58] LABS: Alanine Aminotransferase 50 U/L (0-40); Albumin Level 4.9 g/dL (3.5-5.0); Alkaline Phosphatase 90 U/L (39-117); Anion Gap 15 (12-20); Aspartate Amino Transferase 27 U/L (5-37); Bilirubin Total 0.4 mg/dL (0.0-1.0); Blood Urea Nitrogen 18 mg/dL (9-16); Calcium 10.4 mg/dL (8.4-10.2); Carbon Dioxide 25 mmol/L (22-29); Chloride 103 mmol/L (96-108); Creatinine Clr Calc Pharmacy 122.5; Estimated Glomerular Filt Rate > 60; Glucose Random 90 mg/dL (60-115); Magnesium 2.4 mg/dL (1.6-2.6); Potassium 4.1 mmol/L (3.3-5.1); Sodium 139 mmol/L (135-145); Total Protein 8.5 g/dL (6.5-8.0); Troponin-I High Sensitivity < 2.7 ng/L (<3.5-35.0)
[2024-04-20 16:00] LABS: Lipase 20 U/L (8-78)
[2024-04-20 16:09] LABS: TSH reflex Free T4 0.96 uIU/mL (0.32-4.0)
[2024-04-20] MEDS: 0.9 % Sodium Chloride 1,000 ML 999 ML IV (16:09)
--- NOTE | 2024-04-20 16:38 | PC.NURSE ---
IV established, fluids infusing at this time.
[2024-04-20 16:43] LABS: Influenza A PCR NEGATIVE (Negative); Influenza B PCR NEGATIVE (Negative); Resp Syncy Virus RNA Qual PCR NEGATIVE (Negative); SARS COV2 PCR INHOUSE NEGATIVE (Negative)
[2024-04-20 16:56] VITALS: BP 159/89; PULSE 93; RESP 18; TEMP 36.6; O2SAT 98
[2024-04-20 17:32] VITALS: BP 159/89; PULSE 93; RESP 18; TEMP 36.6; O2SAT 98
== END 2024-04-20 17:32 | disposition home or self-care (01) ==
PROVIDERS: Physician Assistant; Emergency Provider Emergency Medicine
DX: R00.2 Palpitations (principal); R07.89 Other chest pain; Z03.818 Encounter for observation for suspected exposure to other biological agents ruled out; Z79.899 Other long term (current) drug therapy
CPT/HCPCS: 0241U; 36415; 71046; 80053; 82550; 83690; 83735; 84443; 84484; 85025; 85610; 85730; 93005; 96360; 99284; 99285

== ENCOUNTER → 2024-04-20 15:07 | Outpatient (BNV) | payer OTHER, SELFPAY | PROVIDERS: Emergency Provider Emergency Medicine; Visit Provider Internal Medicine | DX: R00.2 Palpitations (principal) | CPT/HCPCS: 93010 ==

== ENCOUNTER 2024-04-24 16:20 | Emergency (ER) | payer OTHER, SELFPAY ==
--- NOTE | 2024-04-24 | ECG_ITS ---
Test Reason : palpitations Blood Pressure : / mmHG Vent. Rate : 096 BPM Atrial Rate : 096 BPM P-R Int : 136 ms QRS Dur : 084 ms QT Int : 328 ms P-R-T Axes : 045 059 011 degrees QTc Int : 414 ms Normal sinus rhythm Nonspecific T wave abnormality Abnormal ECG When compared with ECG of 20-APR-2024 15:11, No significant change was found Referred By: Generic ED Physician Electronically Signed By:Praveen Carrillo
[2024-04-24 16:39] VITALS: BP 151/98; PULSE 98; RESP 18; TEMP 37.2; O2SAT 100; BMI 32.7
[2024-04-24 17:23] LABS: MANUAL DIFF FLAG NO
[2024-04-24 17:28] LABS: Basophils Percent Auto 0.4 % (0-2); Eosinophils Absolute Auto 0.1 X10*3/uL (0.0-0.4); Eosinophils Percent Auto 1.2 % (0-4); Hematocrit 45.7 % (42.0-52.0); Hemoglobin 15.9 g/dl (14.0-18.0); Imm Gran Abs Auto 0.04 X10*3/uL (0.00-0.03); Imm Gran Pct Auto 0.4 % (0.0-0.4); Lymphocytes Absolute Auto 2.2 X10*3/uL (1.2-4.9); Lymphocytes Percent Auto 21.9 % (20-40); Mean Corpuscular HGB Conc 34.8 g/dl (31.0-36.0); Mean Corpuscular Hemoglobin 32.1 pg (27.0-33.0); Mean Corpuscular Volume 92.3 fL (80.0-98.0); Monocytes Absolute Auto 0.5 X10*3/uL (0.1-1.2); Monocytes Percent Auto 4.5 % (2-11); Neutrophils Absolute Auto 7.3 x10*3/uL (2.0-8.3); Neutrophils Percent Auto 71.6 % (45-73); Platelet Count 268 X10*3/uL (160-400); Red Blood Count 4.95 X10*6/uL (4.60-5.80); Red Cell Distribution Width 11.8 % (11.0-16.0); White Blood Count 10.1 X10*3/uL (4.8-10.8)
[2024-04-24 17:48] LABS: Alkaline Phosphatase 79 U/L (39-117)
[2024-04-24 17:50] LABS: Alanine Aminotransferase 53 U/L (0-40); Albumin Level 4.6 g/dL (3.5-5.0); Anion Gap 14 (12-20); Aspartate Amino Transferase 31 U/L (5-37); Bilirubin Total 0.4 mg/dL (0.0-1.0); Blood Urea Nitrogen 14 mg/dL (9-16); Carbon Dioxide 25 mmol/L (22-29); Chloride 103 mmol/L (96-108); Creatinine Clr Calc Pharmacy 103.1; Estimated Glomerular Filt Rate > 60; Glucose Random 124 mg/dL (60-115); Magnesium 2.2 mg/dL (1.6-2.6); Potassium 4.1 mmol/L (3.3-5.1); Sodium 138 mmol/L (135-145); Total Protein 8.1 g/dL (6.5-8.0)
[2024-04-24 17:53] LABS: Troponin-I High Sensitivity < 2.7 ng/L (<3.5-35.0)
[2024-04-24 20:58] VITALS: BP 140/84; PULSE 84; RESP 17; O2SAT 97
[2024-04-24 22:14] VITALS: BP 131/85; PULSE 89; RESP 18; TEMP 36.8; O2SAT 98
--- NOTE | 2024-04-24 22:48 | ED_ITS ---
HPI - Arrhythmia/Palpitations General Chief Complaint: Arrhythmia/Palpitations Stated Complaint: shaky, heart racing Time Seen by Provider: 04/24/24 22:47 Source: patient Mode of arrival: ambulatory Limitations: no limitations History of Present Illness ED Provider: gadiel GARCIA narrative: Patient's history of anxiety been feeling anxious for last few days with episodes of palpitation was seen here on 04/20 for same no chest pain does have poor sleep is on clonidine for p.r.n. anxiety no syncope no chest pain Related Data Home Medications ?Medication ?Instructions ?Recorded ?Confirmed buspirone 10 mg tablet 10 mg PO TID 04/28/23 04/28/23 fluoxetine 40 mg capsule 40 mg PO DAILY 04/28/23 04/28/23 guanfacine 1 mg tablet 1 mg PO BEDTIME 04/28/23 04/28/23 Allergies Allergy/AdvReac Type Severity Reaction Status Date / Time environmental allergies Allergy Runny Nose Verified 04/24/24 16:42 shellfish derived Allergy Unknown Verified 04/24/24 16:42 Review of Systems 2 Review of Systems: Yes all other systems are reviewed and are negative [facility] Social History Social History Household Members: Significant Other and Other Household Members Other:: Lives with his girlfriend and uncle Alcohol intake: current Alcohol intake frequency: a few times a month Alcohol type: beer and hard liquor Smoked in Last 30 Days: No Use of substances other than those prescribed or required for medical reasons: No Substance Use Type: Marijuana Advance Directives: No Advance Directives Information Provided: No Do you have a plan to hurt others: No Plan Physical Exam 2 Vital Signs: Vital Signs: Last Vital Signs Temp 98.2 F 04/24/24 22:14 Pulse 89 04/24/24 22:14 Resp 18 04/24/24 22:14 BP 131/85 04/24/24 22:14 Pulse Ox 98 04/24/24 22:14 O2 Del Method Room Air 04/24/24 22:14 BMI result Body Mass Index 32.7 Appearance: Alert. Oriented X3. No acute distress. Eyes: PERRLA, No Nystagmus ENT: Pharynx normal. Oral Mucosa moist Neck: Normal inspection. Neck supple. CVS: Normal heart rate and rhythm. Pulses normal. No murmur/rub or gallop Respiratory: No respiratory distress. Equal air entry bilateral, Abdomen: Soft and nontender. Bowel sounds are present, Skin: Skin warm and dry. Normal skin color. Normal skin turgor. Extremities: No lower extremity edema. No calf tenderness Neuro: Oriented X 3. No motor deficit. Medical Decision Making Medical Decision Making [facility] Narrative: Patient's history of anxiety with episodes of palpitation during stay in the ER normal sinus rhythm no episodes of palpitation noticed likely symptoms from anxiety Differential Diagnosis Differential Diagnoses: The differential diagnosis associated with the presentation includes Lab Data [facility] Lab Attestation statement: I reviewed the patient's lab results. 04/24/24 17:18 04/24/24 17:18 Labs: Lab Results 04/24/24 Range/Units 17:18 WBC 10.1 (4.8-10.8) X10*3/uL RBC 4.95 (4.60-5.80) X10*6/uL Hgb 15.9 (14.0-18.0) g/dl Hct 45.7 (42.0-52.0) % MCV 92.3 (80.0-98.0) fL MCH 32.1 (27.0-33.0) pg MCHC 34.8 (31.0-36.0) g/dl RDW 11.8 (11.0-16.0) % Plt Count 268 (160-400) X10*3/uL MPV 9.0 L (9.4-12.4) fL Immature Gran % (Auto) 0.4 (0.0-0.4) % Neut % (Auto) 71.6 (45-73) % Lymph % (Auto) 21.9 (20-40) % [place] % (Auto) 4.5 (2-11) % Eos % (Auto) 1.2 (0-4) % Baso % (Auto) 0.4 (0-2) % Lymph # (Auto) 2.2 (1.2-4.9) X10*3/uL [place] # (Auto) 0.5 (0.1-1.2) X10*3/uL Eos # (Auto) 0.1 (0.0-0.4) X10*3/uL Baso # (Auto) 0.0 (0.0-0.2) X10*3/uL Abs Immat Gran (auto) 0.04 H (0.00-0.03) X10*3/uL Absolute Neuts (auto) 7.3 (2.0-8.3) x10*3/uL Absolute Nucleated RBC 0.000 (0.0-0.012) X10*3/uL Nucleated RBC % (auto) 0.0 (0.0-0.2) /100WBC Sodium 138 (135-145) mmol/L Potassium 4.1 (3.3-5.1) mmol/L Chloride 103 (96-108) mmol/L Carbon Dioxide 25 (22-29) mmol/L Anion Gap 14 (12-20) BUN 14 (9-16) mg/dL Creatinine 1.24 (0.5-1.4) mg/dL Estim Creat Clear Calc 103.1 Estimated GFR > 60 Random Glucose 124 H (60-115) mg/dL Calcium 10.0 (8.4-10.2) mg/dL Magnesium 2.2 (1.6-2.6) mg/dL Total Bilirubin 0.4 (0.0-1.0) mg/dL AST 31 (5-37) U/L ALT 53 H (0-40) U/L Alkaline Phosphatase 79 (39-117) U/L Troponin I High Sens < 2.7 (<3.5-35.0) ng/L Total Protein 8.1 H (6.5-8.0) g/dL Albumin 4.6 (3.5-5.0) g/dL Independent Interpretation I performed an independent interpretation of an: EKG Interpretation: Normal sinus rhythm heart rate 96 beats per minute normal interval normal no acute ST T wave changes acute ischemia Discharge Plan Discharge Clinical Impression: Anxiety Patient Disposition: Home, Self-Care Instructions: Anxiety (ED) Additional Instructions: Drink plenty of fluids Take medication as prescribed by psychiatrist Decrease caffeine intake Prescriptions: No Action buspirone 10 mg tablet 10 mg PO TID fluoxetine 40 mg Capsule 40 mg PO DAILY guanfacine 1 mg Tablet 1 mg PO BEDTIME Patient Comments: Patient stated he has not started the medication again. Print Language: Bulgarian
[2024-04-24 23:21] VITALS: BP 134/86; PULSE 85; RESP 17; TEMP 36.8; O2SAT 97
[2024-04-24 23:28] VITALS: BP 134/86; PULSE 85; RESP 17; TEMP 36.8; O2SAT 97
== END 2024-04-24 23:29 | disposition home or self-care (01) ==
PROVIDERS: Emergency Provider Internal Medicine
DX: F41.1 Generalized anxiety disorder (principal); I49.9 Cardiac arrhythmia, unspecified; F43.0 Acute stress reaction; R00.2 Palpitations; Z79.899 Other long term (current) drug therapy
CPT/HCPCS: 36415; 80053; 83735; 84484; 85025; 93005; 99283; 99284

== ENCOUNTER → 2024-04-24 17:05 | Outpatient (BNV) | payer OTHER, SELFPAY | PROVIDERS: Emergency Provider Internal Medicine; Visit Provider Internal Medicine Cardiovascular Disease | DX: R94.31 Abnormal electrocardiogram [ECG] [EKG] (principal) | CPT/HCPCS: 93010 ==

== ENCOUNTER 2024-06-05 14:55 | Emergency (ER) | payer OTHER, SELFPAY ==
--- NOTE | ~2024-06-05 | US_ITS ---
EXAMINATION: US ABDOMEN LIMITED CLINICAL INFORMATION: Vomiting. COMPARISON: None available. TECHNIQUE: Real-time imaging of the right upper quadrant abdominal viscera. FINDINGS: PANCREAS: The tail of the pancreas is obscured by overlying bowel gas. The visualized portions appear unremarkable. LIVER: The liver is normal in size. The liver contour is normal. Parenchymal echogenicity is increased suggesting hepatic steatosis. Focal fat sparing along the gallbladder fossa. Otherwise no focal hepatic lesion. There is no intrahepatic biliary duct dilatation seen. GALLBLADDER: The gallbladder is physiologically distended without evidence of stones, sludge, polyps, wall thickening or pericholecystic fluid. COMMON BILE DUCT: Normal in caliber measuring 0.3 cm in diameter. RIGHT KIDNEY: No hydronephrosis. No renal calculi or focal parenchymal lesions. The kidney measures 10 cm in maximum dimension. FREE FLUID: None. US/US abdomen limited IMPRESSION: 1. No cholelithiasis or sonographic evidence of acute cholecystitis. 2. Hepatic steatosis.
[2024-06-05 15:09] VITALS: BP 121/82; PULSE 93; RESP 16; TEMP 36.9; O2SAT 98; BMI 29.7
--- NOTE | 2024-06-05 15:11 | ED_ITS ---
HPI - Nausea/Vomiting/Diarrhea General Chief complaint: Nausea/Vomiting/Diarrhea Stated complaint: Vomiting Time Seen by Provider: 06/05/24 22:06 Source: patient Mode of arrival: ambulatory Limitations: no limitations History of Present Illness ED Provider: gadiel GARCIA Narrative: Patient complaining of nausea vomiting epigastric and right upper quadrant pain for last 2 months especially after eating fried food no fever no chills no diarrhea patient is scheduled for ultrasound but pain got worse that is why she came here no fever no chills no urinary symptoms Related Data Home Medications ?Medication ?Instructions ?Recorded ?Confirmed buspirone 10 mg tablet 10 mg PO TID 04/28/23 04/28/23 fluoxetine 40 mg capsule 40 mg PO DAILY 04/28/23 04/28/23 guanfacine 1 mg tablet 1 mg PO BEDTIME 04/28/23 04/28/23 Previous Rx's ?Medication ?Instructions ?Recorded ondansetron 4 mg disintegrating 4 mg PO Q6-8H PRN nausea and 06/05/24 tablet vomiting #14 tabs sucralfate 1 gram tablet 1 g PO BID #90 tabs 06/05/24 Allergies Allergy/AdvReac Type Severity Reaction Status Date / Time environmental allergies Allergy Runny Nose Verified 06/05/24 15:12 shellfish derived Allergy Unknown Verified 06/05/24 15:12 Review of Systems 2 Review of Systems: Yes all other systems are reviewed and are negative PMFSH Social History Social History Household Members: Significant Other and Other Household Members Other:: Lives with his girlfriend and uncle Alcohol intake: current Alcohol intake frequency: a few times a month Alcohol type: beer and hard liquor Smoked in Last 30 Days: Yes Use of substances other than those prescribed or required for medical reasons: No Substance Use Type: Marijuana Advance Directives: No Advance Directives Information Provided: No Physical Exam 2 Vital Signs: Vital Signs: Last Vital Signs Temp 98.3 F 06/05/24 23:09 Pulse 76 06/05/24 23:09 Resp 18 06/05/24 23:09 BP 130/84 06/05/24 23:09 Pulse Ox 99 06/05/24 23:09 O2 Del Method Room Air 06/05/24 23:09 BMI result Body Mass Index 29.7 Appearance: Alert. Oriented X3. No acute distress. Eyes: No pallor or icterus ENT: Pharynx normal. Oral Mucosa moist Neck: Normal inspection. Neck supple. CVS: Normal heart rate and rhythm. Pulses normal. Respiratory: No respiratory distress. Equal air entry bilateral, no wheezing/rales/rhonchi Abdomen: Soft , mild tenderness epigastric area and right upper quadrant. Bowel sounds are present, no mass palpable, no CVA tenderness Skin: Skin warm and dry. Normal skin color. Normal skin turgor. Extremities: No lower extremity edema. No calf tenderness Neuro: Oriented X 3. Course Course Course Narrative: This is a Rapid Medical Examination (RME) performed by Rosy Dowling PA-C in triage. Full HPI, ROS, assessment and treatment plan per primary provider in the Main ED. 23 yo male presents to the ER for evaluation of daily vomiting for the last 2 months. Started as vomiting every morning and now progressed to multiple times throughout the day the last 2 days. Started omeprazole 2 days ago. No diarrhea or constipation. No associated abdominal pain. PCP ordered an abdominal ultrasound but it is not for 10 days so she told him to come to the ER for further evaluation. On exam his abd is soft, nontender. Lungs are clear w/ RRR cardiac exam. He appears well and is no in distress. Steady gait. Plan: lab workup, abd u/s Medications Administered Discontinued Medications Generic Name Dose Route Start Last Admin Trade Name Freq PRN Reason Stop Dose Admin Al Hydroxide/Mg Hydroxide 30 ml 06/05/24 22:31 06/05/24 22:47 Magnesium Hydrox/Alum Hydrox 30 Ml Oral.Susp PO 06/05/24 22:32 30 ml ONCE ONE Administration Ondansetron HCl 4 mg 06/05/24 22:31 06/05/24 22:47 Ondansetron Odt 4 Mg Tab.Rapdis TRANSLINGU 06/05/24 22:32 4 mg ONCE ONE Administration Medical Decision Making Medical Decision Making [facility] Narrative: Patient with upper abdominal pain and right upper quadrant abdominal pain ultrasound negative for gallstones likely gastritis sharp patient home Prilosec and Zofran Differential Diagnosis Differential Diagnoses: The differential diagnosis associated with the presentation includes Cholelithiasis/cholecystitis/gastritis/pancreatitis/UTI Lab Data [facility] Lab Attestation statement: I reviewed the patient's lab results. 06/05/24 21:12 06/05/24 21:12 Labs: Lab Results 06/05/24 06/05/24 Range/Units 21:12 22:49 WBC 10.8 (4.8-10.8) X10*3/uL RBC 4.64 (4.60-5.80) X10*6/uL Hgb 14.7 (14.0-18.0) g/dl Hct 42.3 (42.0-52.0) % MCV 91.2 (80.0-98.0) fL MCH 31.7 (27.0-33.0) pg MCHC 34.8 (31.0-36.0) g/dl RDW 11.6 (11.0-16.0) % Plt Count 287 (160-400) X10*3/uL MPV 8.5 L (9.4-12.4) fL Immature Gran % (Auto) 0.3 (0.0-0.4) % Neut % (Auto) 65.1 (45-73) % Lymph % (Auto) 28.9 (20-40) % [place] % (Auto) 4.8 (2-11) % Eos % (Auto) 0.6 (0-4) % Baso % (Auto) 0.3 (0-2) % Lymph # (Auto) 3.1 (1.2-4.9) X10*3/uL [place] # (Auto) 0.5 (0.1-1.2) X10*3/uL Eos # (Auto) 0.1 (0.0-0.4) X10*3/uL Baso # (Auto) 0.0 (0.0-0.2) X10*3/uL Abs Immat Gran (auto) 0.03 (0.00-0.03) X10*3/uL Absolute Neuts (auto) 7.0 (2.0-8.3) x10*3/uL Absolute Nucleated RBC 0.000 (0.0-0.012) X10*3/uL Nucleated RBC % (auto) 0.0 (0.0-0.2) /100WBC Sodium 137 (135-145) mmol/L Potassium 3.6 (3.3-5.1) mmol/L Chloride 105 (96-108) mmol/L Carbon Dioxide 21 L (22-29) mmol/L Anion Gap 15 (12-20) BUN 12 (9-16) mg/dL Creatinine 1.07 (0.5-1.4) mg/dL Estim Creat Clear Calc 114.1 Estimated GFR > 60 Random Glucose 82 (60-115) mg/dL Calcium 9.9 (8.4-10.2) mg/dL Magnesium 2.1 (1.6-2.6) mg/dL Total Bilirubin 0.4 (0.0-1.0) mg/dL Direct Bilirubin 0.1 (0.0-0.5) mg/dL AST 18 (5-37) U/L ALT 35 (0-40) U/L Alkaline Phosphatase 82 (39-117) U/L Total Protein 7.9 (6.5-8.0) g/dL Albumin 4.5 (3.5-5.0) g/dL Lipase 31 (8-78) U/L Urine Color Yellow Urine Appearance Clear Urine pH 6.0 (5.0-9.0) Ur Specific [place] 1.020 (1.005-1.025) Urine Protein Negative (Neg-Trace) mg/dL Urine Glucose (UA) Negative (Negative) mg/dL Urine Ketones Trace (Negative) mg/dL Urine Blood Negative (Negative) Urine Nitrite Negative (Negative) Ur Leukocyte Esterase Negative (Negative) Discharge Plan Discharge Clinical Impression: Gastritis Patient Disposition: Home, Self-Care Instructions: Gastritis (ED) Additional Instructions: Avoid fried food Continue your omeprazole Start taking sucralfate 1 tablet half an hour before you eat While sleeping keep your head elevated Follow up with your PCP/market development executive for further evaluation including endoscopy Prescriptions: New sucralfate 1 gram tablet 1 g PO BID Qty: 90 0RF ondansetron 4 mg tablet,disintegrating 4 mg PO Q6-8H PRN (Reason: nausea and vomiting) Qty: 14 0RF No Action buspirone 10 mg tablet 10 mg PO TID fluoxetine 40 mg Capsule 40 mg PO DAILY guanfacine 1 mg Tablet 1 mg PO BEDTIME Patient Comments: Patient stated he has not started the medication again. Referrals: Yue Leung MD [Physician] - 1 week Interventions: ED Discharge Assessment Last Done: 06/05/24 23:09 Discharge Date/Time: 06/05/24 23:10 Print Language: Brazilian
[2024-06-05 20:00] VITALS: BP 151/90; PULSE 75; RESP 16; TEMP 36.7; O2SAT 98
[2024-06-05 21:17] LABS: MANUAL DIFF FLAG NO
[2024-06-05 21:21] LABS: Basophils Percent Auto 0.3 % (0-2); Eosinophils Absolute Auto 0.1 X10*3/uL (0.0-0.4); Eosinophils Percent Auto 0.6 % (0-4); Hematocrit 42.3 % (42.0-52.0); Hemoglobin 14.7 g/dl (14.0-18.0); Imm Gran Abs Auto 0.03 X10*3/uL (0.00-0.03); Imm Gran Pct Auto 0.3 % (0.0-0.4); Lymphocytes Absolute Auto 3.1 X10*3/uL (1.2-4.9); Lymphocytes Percent Auto 28.9 % (20-40); Mean Corpuscular HGB Conc 34.8 g/dl (31.0-36.0); Mean Corpuscular Hemoglobin 31.7 pg (27.0-33.0); Mean Corpuscular Volume 91.2 fL (80.0-98.0); Mean Platelet Volume 8.5 fL (9.4-12.4); Monocytes Absolute Auto 0.5 X10*3/uL (0.1-1.2); Monocytes Percent Auto 4.8 % (2-11); Neutrophils Percent Auto 65.1 % (45-73); Platelet Count 287 X10*3/uL (160-400); Red Blood Count 4.64 X10*6/uL (4.60-5.80); Red Cell Distribution Width 11.6 % (11.0-16.0); White Blood Count 10.8 X10*3/uL (4.8-10.8)
[2024-06-05 21:32] LABS: Alanine Aminotransferase 35 U/L (0-40); Albumin Level 4.5 g/dL (3.5-5.0); Alkaline Phosphatase 82 U/L (39-117); Anion Gap 15 (12-20); Aspartate Amino Transferase 18 U/L (5-37); Bilirubin Direct 0.1 mg/dL (0.0-0.5); Bilirubin Total 0.4 mg/dL (0.0-1.0); Blood Urea Nitrogen 12 mg/dL (9-16); Calcium 9.9 mg/dL (8.4-10.2); Carbon Dioxide 21 mmol/L (22-29); Chloride 105 mmol/L (96-108); Creatinine Clr Calc Pharmacy 114.1; Estimated Glomerular Filt Rate > 60; Glucose Random 82 mg/dL (60-115); Lipase 31 U/L (8-78); Magnesium 2.1 mg/dL (1.6-2.6); Potassium 3.6 mmol/L (3.3-5.1); Sodium 137 mmol/L (135-145); Total Protein 7.9 g/dL (6.5-8.0)
[2024-06-05 22:38] VITALS: BP 130/84; PULSE 76; RESP 18; TEMP 36.8; O2SAT 99
[2024-06-05] MEDS: Magnesium Hydrox/Alum Hydrox 30 ML ORAL.SUSP PO (22:47)
[2024-06-05] MEDS: Ondansetron ODT 4 MG TAB.RAPDIS TRANSLINGU (22:47)
[2024-06-05 23:09] VITALS: BP 130/84; PULSE 76; RESP 18; TEMP 36.8; O2SAT 99
[2024-06-05 23:17] LABS: Appearance Urine Clear; Color Urine Yellow; Glucose Urine UA Negative (Negative); Leukocyte Esterase Urine Negative (Negative); Nitrite Urine Negative (Negative); Urine Blood Negative (Negative); Urine Ketones Trace mg/dL (Negative); Urine Protein Negative (Neg-Trace)
== END 2024-06-05 23:10 | disposition home or self-care (01) ==
PROVIDERS: Physician Assistant; Emergency Provider Internal Medicine; PCP Internal Medicine
DX: K29.70 Gastritis, unspecified, without bleeding (principal); R10.11 Right upper quadrant pain; R11.2 Nausea with vomiting, unspecified; Z79.899 Other long term (current) drug therapy
CPT/HCPCS: 36415; 76705; 80048; 80076; 81003; 83690; 83735; 85025; 99284

== ENCOUNTER 2024-07-24 11:54 | Outpatient (AMB) | payer OTHER, SELFPAY ==
--- NOTE | 2024-07-24 11:57 | A.OFFVIS_ITS ---
Vital Signs 07/24/24 12:00 Height 5 ft 8 in Weight 185 lb BMI 28.1 BP 110/64 Blood Pressure Location Lt brachial Position Sitting Intake Visit Reasons: Weight loss Intake Note: Patient new consult for weight loss. Patient cc: abdominal pain on and off, lossing weight and vomiting on and off. Electrocardiograph Technician Required: No Accompanied by: Self / Same As Patient Allergies environmental allergies Allergy (Verified 07/24/24 11:56) Runny Nose shellfish derived Allergy (Verified 07/24/24 11:56) Unknown HPI HPI Weight loss: Details: HPI 23 yr old here for assessment for weight loss He noted persistent daily nausea and vomiting for several months but more recently seems to be less he has sinus issues mild constipation no blood in stool he had heartburn but better with PPI now appetite is good, he feels his weight is down a little no dysphagia no chest pain he does have occ LLQ pain -20 mins at max, 6-7/10, no identifiable pattern or exacerbating factors pain is helped by passing gas or stool, no link to food urine is normal he has one partner been stable for 7 yrs his diet is poor, all over the place, minimal fruit and veg due to ? allergies - not verified US in ED with steatosis -GB normal labs, nml hgb, nml TSh, last LFT nml ROS: Constitutional : No Weight loss, No Fever, No Chills ENT/Mouth : No sore throat, No Rhinorrhea Eyes: No Swelling, No Redness Cardiovascular : No Chest Pain, No SOB, No Edema Respiratory : No Cough, No Sputum, No Wheezing Gastrointestinal : see HPI Genitourinary : NO Dysuria, No Urinary Frequency, No Hematuria, No Urgency Musculoskeletal : + joint pain, No Myalgias, No Joint Swelling--muscles feel weak sometimes, Skin : No Skin Lesions, No rash Neuro : No Weakness, No Numbness, No Dizziness, No Headache Psych : + Anxiety/Panic, No Depression Heme/Lymph: No Bruising, No Lymphadenopathy Endocrine : No Polyuria, No Polydipsia All other systems reviewed and are negative. Medical History anxiety Surgical History lump removed -lipoma Family History no FH of ibd, brother has pancreatitis Social History occ alcohol, nicotine vape, no THC EXAM: GENERAL: The patient is well developed and nontoxic. VITAL SIGNS:see workflow HEENT: Nonicteric sclerae, PERRLA, EOMI. Oropharynx clear. Moist mucous membranes. Conjunctivae appear well perfused. No thyroid mass. CHEST: Chest wall is nontender. HEART: Regular rate and rhythm without murmurs. LUNGS: Clear to auscultation bilaterally. ABDOMEN: Soft, positive bowel sounds, nontender, no organomegaly.no flank tenderness SKIN: No rash, no excessive bruising, petechiae, or purpura. NEUROLOGIC: Cranial nerves II-XII intact without motor/sensory deficit. Psych: normal affect A/P: 1/ LLQ pain, relieved by passing stool, poor diet, also persistent nausea, been getting better with PPI, ddx: functional constipation, dyspepsia, reflux relaxed, anxiety related 2/ hepatic steatosis PLAN: 1/ offered EGD and colo for further assessment he wants to hold and try diet first 2/ reviewed low fat and high fiber diet, exercise can call me back if changes mind [facility] Social History Household Members: Significant Other and Other Household Members Other:: Lives with his girlfriend and uncle Alcohol intake: current Alcohol intake frequency: a few times a month Alcohol type: beer and hard liquor Substance Use Type: Marijuana Physical Exam Vital Signs: Last Vital Signs BP 110/64 07/24/24 12:00 BMI result Body Mass Index 28.1 Assessment & Plan Assessment & Plan (1) Steatosis: Code(s): E88.89 - Other specified metabolic disorders Category: Medical Plan: see above Coding Level of Care Code New Pt Level 4 (02778) Diagnoses Steatosis E88.89
[2024-07-24 12:00] VITALS: BP 110/64; BMI 28.1
== END 2024-07-24 12:43 | disposition home or self-care (01) ==
PROVIDERS: PCP Internal Medicine; Visit Provider Internal Medicine Gastroenterology
DX: E88.89 Other specified metabolic disorders (principal)
CPT/HCPCS: 99204

== ENCOUNTER → 2024-07-24 11:54 | Outpatient (BNVA) | payer OTHER, SELFPAY | PROVIDERS: PCP Internal Medicine; Visit Provider Internal Medicine Gastroenterology ==

== ENCOUNTER → 2024-11-24 15:00 | Outpatient (REF) | payer OTHER, SELFPAY | LOC: HO.CARD 15:00 | PROVIDERS: PCP Internal Medicine; Visit Provider Psychiatry & Neurology Psychiatry | DX: F41.0 Panic disorder [episodic paroxysmal anxiety] (principal) | CPT/HCPCS: 93005 ==

== ENCOUNTER → 2024-11-24 15:06 | Outpatient (BNV) | payer OTHER, SELFPAY | PROVIDERS: PCP Internal Medicine; Visit Provider Internal Medicine Cardiovascular Disease | DX: I45.81 Long QT syndrome (principal) | CPT/HCPCS: 93010 ==

== ENCOUNTER 2024-11-28 07:50 | Outpatient (REF) | payer OTHER, SELFPAY ==
--- OUTSIDE RECORDS SUMMARY | 2024-11-28 07:53 | XMS_ITS | Encounter Summary ---
Author Organization [facility] Address [address] [place] [address] Phone Care Team Providers Care Carton Stamper Name Role Phone Unavailable Primary Care Provider Unavailabl e Encounter Details Date Type Department Care Team (Late st Contact Info) Description 09/18/2016 Documentation [facility] Family Medicine [address] [place] [address] Family Medicine, Physician [address] [place] [address] Social History Tobacco Use Types Packs/Day Years Used Date Smoking Tobacco: Never Assessed Sex and Gender Information Value Date Recorded Sex Assigned at Not on file Legal Sex Male 5:12 PM EDT Gender Identity Not on file Sexual Orientation Not on file documented as of this encounter Plan of Treatment Not on file documented as of this encounter Visit Diagnoses Not on filedocumented in this encounter
--- OUTSIDE RECORDS SUMMARY | 2024-11-28 07:53 | XMS_ITS | Encounter Summary ---
Author Organization [facility] Address [address] [place] [address] Phone Care Team Providers Care Ux Visual Designer Name Role Phone Unavailable Primary Care Provider Unavailabl e Encounter Details Date Type Department Care Team (Late st Contact Info) Description 09/07/2011 Documentation [facility] Family Medicine [address] [place] [address] Family Medicine, Physician [address] [place], [place] [id number] Social History Tobacco Use Types Packs/Day Years [...]
--- OUTSIDE RECORDS SUMMARY | 2024-11-28 07:53 | XMS_ITS | Clinical Summary ---
Author Organization [facility] Address [address] [place] [address] Phone Care Team Providers Care Digital Computer Operator Name Role Phone Unavailable Primary Care Provider Unavailabl e Immunizations Immunization Administration Dates Next Due DTaP 5 02/22/2004, 0,07/21/1999, 999,03/11/1999 HPV Vaccine 9 Valent 07/22/2016 Hep A, ped/adol 07/22/2016 Hep B, ped/adol 07/21/1999,03/11/1999,1998 Hib (PRP-T) 03/22/2000, 9,04/12/1999, 999 IPV 02/22/2004,04/12/1999,03/11/1999 Influenza Split 02/05/2011 MMR 02/22/2004,12/26/1999 Meningococcal Conj (Menactra) MCV4P 07/22/2016,0 12/26/2009 OPV 03/22/2000 Tdap 12/26/2009 Varicella 12/26/2009,12/26/1999 Family History Relation Name Status Comments Brother Alive Brother: Alive and well, Asthma Father Alive Father: Alive a nd well Mother Alive Mother: Alive a nd well Other Close relative: Sudden , Diabetes mellitus, High cholesterol, Heart disease Sister Alive Sister: Alive a nd well Social History Tobacco Use Types Packs/Day Years Used Date Smoking Tobacco: Never Assessed Sex and Gender Information Value Date Recorded Sex Assigned at Not on file Legal Sex Male 5:12 PM EDT Gender Identity Not on file Sexual Orientation Not on file Last Filed Vital Signs Vital Sign Reading Time Taken Comments Blood Pressure 120/85 07/22/2016 12:00 AM EDT Pulse 72 07/22/2016 12:00 AM EDT Temperature 36.3 ??C (97.4 ??F) 07/17/2016 12:00 AM E DT Respiratory Rate - - Oxygen Saturation - - Inhaled Oxygen Concentration - - Weight 57.2 kg (126 lb) 07/22/2016 12:00 AM EDT Height 170.2 cm (5' 7 ) 07/22/2016 12:00 AM EDT Body Mass Index 19.73 07/22/2016 12:00 AM EDT Plan of Treatment Health Maintenance Due Date Last Done Comments HPV Vaccines (2 - Male 3-dose series) 08/19/2016 07/22/2016 Hepatitis A Vaccines (2 of 2 - 2-dose series) 01/20/2017 07/22/2016 DTaP,Tdap,and Td Vaccines (7 - Td or Tdap) 12/27/2019 12/26/2009, 02/22/2004, 08/17/2000, Additional history exists Influenza Vaccines (#1) 2024 02/05/2011 COVID-19 Vaccine ( season) 2024 Hepatitis B Vaccines Completed 07/21/1999, 03/11/1999, 1998 HIB Vaccines Completed 03/22/2000, 01/1999, 04/12/1999, Additional history exists IPV Vaccines Completed 02/22/2004, 02/2000, 04/12/1999, Additional history exists MMR Vaccines Completed 02/22/2004, 12/26/1999 Varicella Vaccines Completed 12/26/2009, 12/26/1999 Meningococcal Vaccine Completed 07/22/2016, 010 Men B Vaccine Aged Out No longer elig ible based on patient's age to complete this topic Pneumococcal Vaccine Aged Out No long er eligible based on patient's age to complete this topic
--- OUTSIDE RECORDS SUMMARY | 2024-11-28 07:53 | XMS_ITS | Encounter Summary ---
Author Organization [facility] Address [address] [place] [address] Phone Care Team Providers Care Clerical Methods Analyst Name Role Phone Unavailable Primary Care Provider Unavailabl e Encounter Details Date Type Department Care Team (Late st Contact Info) Description 06/03/2017 Conversion Encounter [facility] - [address] [address] Social History Tobacco Use Types Packs/Day Years [...]
--- OUTSIDE RECORDS SUMMARY | 2024-11-28 07:53 | XMS_ITS | Data Portability ---
Author Organization [place] [facility], [facility] Address [address] [place] [phone] Care Team Providers Care Customer Associate Name Role Phone RUTHY DEE Referring Provider Assessment Encounter Date Assessment Date Assessment LastModified by Organization Details LastModified Time 10/23/2024 10/23/2024 23-year-old male with a history of anxiety presents today for multiple ENT related symptoms including fluctuating ear pressure and tinnitus since the summer, sinus congestion, dizziness like a feeling of falling, frequent headaches, throat clearing. Other systems that seem to be affected including previous frequent emesis, vision changes with light sensitivity, stomach pains, generalized weakness, poor sleep, tachycardia. Testing has shown several allergies. Ear exam is normal today. I do not see any effusion. Audiometric testing shows normal hearing. For the throat clearing, I did perform flexible laryngoscopy and this is shows some nonspecific irritation. Given the ear symptoms and dizziness, we can proceed with MRI. I am highly suspicious of migraines contributing to his symptoms but this does not fully explain some of his more global symptoms which he can explore fully more fully with his PCP. We discussed that allergies could be a contributing factor as well and he should continue his allergy medications. I did give him literature regarding migraines and their many manifestations. Given his vision changes, I did also recommend seeing an brine plant operator . [email or web address] Not available 11/01/2024 11:16:08 Plan of Treatment Reminders Order Date Submit Date Provider Last Modified By Organization Details Last Modified Time Details Appointments Establis [facility] 15 2024 10:15A Sharyn MILES MD Not available Not available Not available Lab None recorded . Referral None recorded . Procedures None recorded . Surgeries None recorded . Imaging MRI, brain + internal auditory canal, w/wo contrast 2024 025 [email or web address] [facility] ([facility]), [address], [place], [address], 11/01/2024 10:53:15 Medication Orders None recorded . Patient TargetsNo targets recorded. Patient InstructionsNo instructions recorded. Reason for Referral None Reported. Results Created Date Observation Date Name Description Value Unit Range Abnormal Flag Note LastModifiedBy Organization Detail LastModifiedTime 10/24/19 audio gram No observ ation record ed. BARCODE Not Available 2024 10:49:01 11/03/19 25 10/30/2024 MRI, brain + brain stem, w/wo contr ast [facility] Access ion Number : [id number] [place] Name: Jaz Mays [facility] Record Number : [id number] Date of : 2000 Date of Exam: 2024 Referr ing Physic trista: Tamara [facility]bob [facility] [address], [place] [address] [place] [address] Exam: MR Brain (C-/C+ ) CPT 77783 Room Descri ption: [facility] Espr 1.5 MR Brain (C-/C+ ) CPT 43670 INDICA TION / CLINIC AL QUESTI ON: R42 - Dizzin ess and giddin ess, , UNMAPP ED LAB (MRI, BRAIN + DINKEY ENGINEER AL AUDITO RY CANAL, W/WO CONTRA ST) R42 - Dizzin ess and giddin ess, , UNMAPP ED LAB (MRI, BRAIN + DINKEY ENGINEER AL AUDITO RY CANAL, W/WO CONTRA ST) Depart ment Protoc ol TECHNI QUE: MRI of the brain with attent ion to the internet systems administrator al audito ry canals was perfor med with and withou t contra st utiliz ing sagitt al T1, axial T2, axial CISS, axial and batista l T1, and post-c ontras t axial and batista l T1-nicho ghted sequen jacob. 18 mL Dotare m intrav enous contra st was admini stered . COMPAR SYLVIA: None. FINDIN GS: IAC: There is no mass or abnorm al enhanc ement in the internet systems administrator al audito ry canals or cerebe llopon venita angles . Course and calibe r of the 7th and 8th crania l nerves is normal bilate rally. Fluid signal is preser mattie in the inner ear struct ures bilate rally. Brains tem demons trates normal signal . BRAIN and EXTRA- AXIAL SPACES : No signif icant abnorm ality of the visual ized portio ns of the brain and extra- axial spaces . EXTRAC RANIAL SOFT TISSUE S: Visual ized portio ns of the extrac ranial soft tissue s are unrema rkable . There is minima l scatte red parana katlin sinus mucosa l thicke farshad and there is patchy fluid signal in the bilate ral mastoi d air cells. BONES: Visual ized marrow signal is preser mattie. IMPRES JESÚS: No retroc ochlea r abnorm ality to explai n the patien t?s sympto ms. Electr onical ly Signed By: Ayla portillo MD [facility] ([facility]) [address] [place], [address], 11/15/2024 11:27:19 Result Notes None recorded. Problems Name Problem SNOMED Code Status Onset Date Resolution Date Notes Provider Name and Address Organization Details Recorded Time Abnormal auditory perception 59673020 Active 025 PRITI BALLESTEROS [address] [address], [place], [phone], [facility] - [facility] 5 09:43:35 Dizziness and giddiness 713060630 Active Jeovany MILES MD [address] [address], [place], [phone], [facility] - [facility] 5 11:21:21 Clearing throat - hawking 873026490 Active Jeovany MILES MD [address], [address], [facility] - [facility] 5 11:11:02 Problem Notes None recorded. Procedures Surgical History Date Name Laterality Status Provider Name and Address Organization Details Recorded Time 10/23/19 25 Fiberoptic Laryngoscopy (Comprehensive) completed TAMARA MILES MD [address] [facility] [address], [place], [address], [facility] 11/01/2024 11:10:12 10/23/19 25 Air & Speech Audio with Tymps (19779, [address] & [address]) completed PRITI BALLESTEROS [address] [facility] [address], [place], [address], [facility] 10/23/2024 09:44:38 Imaging Results Imaging Date Name Status LastModified by Organiz ation Details LastModified Time 10/24/2024 audiogram completed BARCODE Information no t available 10/24/2024 10:49:01 10/30/2024 MRI, brain + brain stem, w/wo contrast active [facility] ([facility]) [address], [place], [address], 11/15/2024 11:27:19 Procedure Notes None recorded. Medical Equipment None Reported. Allergies No known drug allergies Medications Name Sig Start Date Stop Date Status Note LastModified by Organization Details LastModified Time freestyle lancets misc active Not Available Not Available Not Available amoxicillin 500 mg capsule TAKE 1 CAPSULE BY MOUTH EVERY 12 HOURS FOR 10 DAYS 10/23 completed Not Available Not Available Not Available venlafaxine ER 37.5 mg capsule,ext ended release 24 hr TAKE 1 CAPSULE BY MOUTH DAILY FOR 15 DAYS. INCREASE TO 2 CAPSULES BY MOUTH DAILY 10/23 completed Not Available Not Available Not Available clonidine HCl 0.1 mg tablet TAKE 1 TABLET BY MOUTH TWICE DAILY NEEDED active Not Available Not Available No t Available cetirizine 10 mg tablet TAKE 1 TABLET BY MOUTH DAILY active Not Available Not Available No t Available sucralfate 1 gram tablet TAKE 1 TABLET BY MOUTH TWICE DAILY 10/23 completed Not Available Not Available Not Available FreeStyle Lancets 28 gauge USE TO TEST BLOOD GLUCOSE DAILY active Not Available Not Available No t Available prednisone 20 mg tablet TAKE 2 TABLETS BY MOUTH DAILY FOR 5 DAYS 10/23 completed Not Available Not Available Not Available omeprazole 40 mg capsule,del ayed release TAKE 1 CAPSULE BY MOUTH DAILY 10/23 completed Not Available Not Available Not Available lorazepam 0.5 mg tablet TAKE 1 TABLET BY MOUTH DAILY FOR 3 DAYS NEEDED FOR ANXIETY 10/23 completed Not Available Not Available Not Available omeprazole 20 mg capsule,del ayed release TAKE 1 CAPSULE BY MOUTH DAILY 10/23 completed Not Available Not Available Not Available montelukast 10 mg tablet TAKE 1 TABLET BY MOUTH DAILY 10/23 completed Not Available Not Available Not Available hydroxyzine HCl 10 mg tablet TAKE 1 TABLET BY MOUTH THREE TIMES DAILY NEEDED 10/23 completed Not Available Not Available Not Available ondansetron 4 mg disintegrat ing tablet DISSOLVE 1 TABLET ON THE TONGUE EVERY 6 TO 8 HOURS NEEDED FOR NAUSEA OR VOMITING 10/23 completed Not Available Not Available Not Available fluticasone propionate 50 mcg/actuati on nasal spray,suspe nsion SHAKE LIQUID AND USE 2 SPRAYS IN EACH NOSTRIL DAILY active Not Available Not Available No t Available sertraline 50 mg tablet TAKE 1 TABLET BY MOUTH EVERY MORNING 10/23 completed Not Available Not Available Not Available FreeStyle Lite Strips USE TO TEST BLOOD GLUCOSE DAILY active Not Available Not Available No t Available Vitals Date Recorded Body height Body mass index (BMI) Body weight Provider Name and Address Organization Details Last Updated DateTime 10/23/2024 172.72 cm 29 kg/m2 23554.35 g Raquel Estrella [facility] 10/23/2024 10:54:19 Social History Question Answer Notes LastModified by Organizat ion Details LastModified Time Do You Or Have You Ever Used E-cigarettes Or Vape? Current User Of Electronic Cigarettes Information not available 11/01/2024 Do You Or Have You Ever Used Any Other Forms Of Tobacco Or Nicotine? Yes Information not available 11/01/2024 Sex: Unknown Functional Status None recorded. Mental Status None recorded. Family History Nothing Reported. Medical History Condition Response Allergies/Hayfever Y Heart Problems N Anxiety Y Tonsil Infections Y Emphysema N Migraines N Thyroid Problems N Depression Y COPD N Developmental Delay N Glaucoma N Nasal or Sinus Problems Y Anemia N Immune System Disorder N Anesthesia Complications N Heart Attack ([place]) N Other Skin Condition N Diabetes Y Rhinitis N Bleeding Disorder N Food Allergy N Hearing Loss Y Arthritis N Hyperlipidemia N Cancer N Stroke N Dementia N Nasal polyps N Asthma N Sleep Disorder N High Cholesterol Y GERD/Reflux Y Liver Disease N Headaches Y Fibromyalgia N Hypertension N Speech Delay N Kidney Disease N Past Encounters Encounter ID Performer Location Encounter Start Date Encounter Closed Date Diagnosis/Indication Diagnosis SNOMED-CT Code Diagnosis ICD10 Code Diagnosis Note [id number] TAMARA MILES MD [facility] [address] [address] 10/23/2024 09:25:23 10/23/2024 11:29:45 Abnormal auditory perception 36660185 H93.299 Right Ear:Normal hearing with excellent speech discrimina tion.Type Ad tympanogra m.Left Ear:Normal hearing with excellent speech discrimina tion.Type A tympanogra m. Dizziness and giddiness 703784115 R42 Clearing t hroat - hawking 451764745 R05.9 Health Concerns Section Related Observation LastModified by Organization Detai ls LastModified Time None Recorded Concern Status LastModified by Organization Details LastModified Time None Recorded Advance Directives Directive None Recorded Payers Encounter Date Sequence Insurance Name Policy Number Policy Francois Covered Member ID Francois Member ID Guarantor Name 10/23/[address] [place] [address] [id number] Omar Kristin [id number] Omar Foster Notes Date Note Type Note Provider Name and Address Organization Details Recorded Time 10/23/2024 text/html 23 yo M with a history of anxiety with multiple concerns: Fluctuating ear pressure, tinnitus Usually right is worse since April 19, not sure if inciting factordoes clench teeth now on allergy meds, could not take allergy meds, then diagnosed with fluid in the ears, more pressure when does take it 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[employer] Allergy, multiple sensitivities all tree weed, grass pollen, mold, cat, and dog, not dust mites Sinus congestion Feels like position is off a little, dizzy and nauseous, can feel like falling, frequent headaches and stomach painsNeeds to clear throatPrevious frequent emesis now only if wake but it is common to happen in the morning if wakes up too earlyVision feels a little staticky, not yet seen eye doctor, light sensitivity, always tired Heart rate higher to 123 when not activeGetting anxiety and depressionArms and legs feel a little weaker clonidine for sleep, initially prescribed for anxiety, was previously on prozac but that caused depression, supposed to try sertraline prediabetes TAMARA MILES MD [address] [place] [address], [place], [address], [facility] - [facility] 11/01/2024 11:21:18
[2024-11-28 08:17] LABS: MANUAL DIFF FLAG NO
[2024-11-28 08:22] LABS: Basophils Percent Auto 0.4 % (0-2); Eosinophils Absolute Auto 0.1 X10*3/uL (0.0-0.4); Eosinophils Percent Auto 1.7 % (0-4); Hematocrit 45.7 % (42.0-52.0); Hemoglobin 15.8 g/dl (14.0-18.0); Imm Gran Abs Auto 0.03 X10*3/uL (0.00-0.03); Imm Gran Pct Auto 0.4 % (0.0-0.4); Lymphocytes Absolute Auto 2.5 X10*3/uL (1.2-4.9); Lymphocytes Percent Auto 35.4 % (20-40); Mean Corpuscular HGB Conc 34.6 g/dl (31.0-36.0); Mean Corpuscular Hemoglobin 31.4 pg (27.0-33.0); Mean Corpuscular Volume 90.9 fL (80.0-98.0); Mean Platelet Volume 8.4 fL (9.4-12.4); Monocytes Absolute Auto 0.4 X10*3/uL (0.1-1.2); Monocytes Percent Auto 5.6 % (2-11); Neutrophils Percent Auto 56.5 % (45-73); Platelet Count 269 X10*3/uL (160-400); Red Blood Count 5.03 X10*6/uL (4.60-5.80); Red Cell Distribution Width 11.4 % (11.0-16.0); White Blood Count 7.1 X10*3/uL (4.8-10.8)
[2024-11-28 08:51] LABS: Alanine Aminotransferase 64 U/L (0-40); Albumin Level 4.4 g/dL (3.5-5.0); Alkaline Phosphatase 89 U/L (39-117); Anion Gap 11 (12-20); Aspartate Amino Transferase 37 U/L (5-37); Bilirubin Total 0.4 mg/dL (0.0-1.0); Blood Urea Nitrogen 15 mg/dL (9-16); C Reactive Protein 0.46 mg/dL (< or = 0.50); Calcium 9.6 mg/dL (8.4-10.2); Carbon Dioxide 25 mmol/L (22-29); Chloride 106 mmol/L (96-108); Cholesterol 196 mg/dL (<200); Estimated Glomerular Filt Rate > 60; Glucose Fasting 91 mg/dL (60-99); HDL Cholesterol 31 mg/dL (>40); Iron 96 mcg/dL (45-160); LDL Cholesterol Calculated 135 mg/dL (<100); Magnesium 2.1 mg/dL (1.6-2.6); Percent Iron Saturation 30 % (15-50); Phosphorus 4.6 mg/dL (2.7-4.5); Potassium 4.3 mmol/L (3.3-5.1); Sodium 138 mmol/L (135-145); Total Iron Binding Capacity 319 mcg/dL (228-428); Total Protein 8.1 g/dL (6.5-8.0); Triglycerides 151 mg/dL (<150); Unsaturated Iron Binding 223 ug/dL
[2024-11-28 08:55] LABS: Appearance Urine Clear; Color Urine Yellow; Glucose Urine UA Negative (Negative); Leukocyte Esterase Urine Negative (Negative); Nitrite Urine Negative (Negative); Urine Blood Negative (Negative); Urine Ketones Negative (Negative); Urine Protein Negative (Neg-Trace)
[2024-11-28 09:00] LABS: Erythrocyte Sedimentation Rate 5 MM/HR (0-15)
[2024-11-28 09:10] LABS: Estimated Average Glucose 108 mg/dL; Hemoglobin A1C 142.8819 umol/L; Hemoglobin A1c % 5.4 % (<6.0); Total Hemoglobin (HGBA1C) 3990.7275 umol/L
[2024-11-28 09:12] LABS: Thyroid Stimulating Hormone 0.88 uIU/mL (0.32-4.0); Vitamin D 25-OH Total 29.1 ng/mL (>30)
[2024-11-28 09:16] LABS: Potassium Urine Random 26.7 mmol/L
[2024-11-28 09:39] LABS: Folate 8.8 ng/mL (> or = 4.0); Vitamin B12 397 pg/mL (200-900)
[2024-11-28 10:15] LABS: Osmolality, Serum 294 mosm/kg (281-305)
[2024-11-28 10:16] LABS: Osmolality Urine 713 mosm/kg (373-1093)
[2024-11-28 13:46] LABS: Parathyroid Hormone Intact 29.6 pg/mL (8.7-77.1)
[2024-11-29 06:03] LABS: Triiodothyronine T3 Free 3.6 pg/mL (2.3-4.2); Triiodothyronine T3 Total 120 ng/dL (76-181)
[2024-11-29 13:59] LABS: Calcium, Ionized 5.2 mg/dL (4.7-5.5)
[2024-11-30 17:23] LABS: Calcium, Random Urine 8.2 mg/dL
[2024-12-04 10:43] LABS: Metanephrine, Free 26 pg/mL (<=57); Normetanephrines, Free 58 pg/mL (<=148); Total Metanephrine, Free 84 pg/mL (<=205)
[2024-12-04 16:44] LABS: Aldosterone/Renin Ratio 4.3 Ratio (0.9-28.9); Plasma Renin Activity 1.16 ng/mL/h (0.25-5.82)
[2024-12-04 18:23] LABS: Catecholamine Frac, Total 447 pg/mL
== END 2024-11-28 07:51 | disposition home or self-care (01) ==
LOC: HO.LAB 07:50
PROVIDERS: PCP Internal Medicine; Visit Provider Psychiatry & Neurology Psychiatry
DX: F41.0 Panic disorder [episodic paroxysmal anxiety] (principal); R00.2 Palpitations; R03.0 Elevated blood-pressure reading, without diagnosis of hypertension
CPT/HCPCS: 36415; 80053; 80061; 81003; 82088; 82306; 82310; 82330; 82384; 82607; 82746; 83036; 83540; 83735; 83835; 83930; 83935; 83970; 84100; 84133; 84300; 84439; 84443; 84480; 84481; 85025; 85652; 86140

== ENCOUNTER 2024-12-11 11:15 | Outpatient (RCR) | payer OTHER, SELFPAY ==
--- NOTE | 2024-11-23 12:02 | PC.ADMIT ---
Patient is a 23 year old partnered male who self referred to [facility] secondary to sxs of anxiety with panic, and depression. Patient reports this has impacted work as he cut down his hours to one day a week as a result. 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 He has had numerous EKG's d/t c/o chest pain that along with a cardiac halter monitoring which patient reports all have been negative. He also reports shoulder tension form anxiety and stress. Patient unable to identify triggers. Patient lives with his GF who works 9-5 reports she is supportive. He also lives with is uncle who he stated is retired and does not see him much. Patient is alert and oriented x4. He is calm and cooperative. He presented with depressed mood and anxious affect. He denied SI, no HI. He reports feelings of impending doom secondary to anxiety and is fearful of . He was given a copy of his safety plan if needed. Medications reconciled with patient and patient's pharmacy. He reports being fearful of taking medication. He stated he was on a SSRI and during that time he stopped drinking alcohol and reports he was crying all the time thus stopped taking the SSRI. He also stated he takes 1/2 tab of Lorazepam as he is afraid to take the whole tab. He stated he feels it does not work for anxiety. Medication education provided. Patient reports he is not longer drinking heavily and will only have 2-3 beers on occasion, last drank alcohol 2 weeks ago.
[2024-11-23 13:42] VITALS: BP 127/90; PULSE 88; TEMP 37.3
[2024-11-23 13:45] VITALS: BMI 29.1
--- NOTE | 2024-11-23 15:13 | HO.PHP ---
Client's case has been opened and reviewed in team.
--- NOTE | 2024-11-24 13:41 | P.HPPSP_ITS ---
HPI Date of Service: 11/24/24 Chief Complaint: anxiety Sources of Information: patient interviewed, chart reviewed and crisis/core team assessment reviewed HPI Narrative: Patient is a 23 yo male with recurrent depression, anxiety and panic attacks, last seen at [facility] in 04/2023, who self-referred to the program this time for worsening mood, depressed, just feeling on edge all the time . He reports a history of experiencing a severe (unprovoked) panic attack on April 19, 2024 since that time has been experiencing persistent symptoms of somatic anxiety, jitteriness, nervousness, shakiness, muscle tension and fatigue, with associated palpitations, I'm in constant 'flight response' every minute of the day over the past 7 months with no relief. It is wearing him down and contributing to worsening mood, low energy, difficulties with focus, feelings of hopelessnes, helplessness and despair. Experiences visual disturbances weird vision problems.. like digital, pixelated... looks like things are vibrating , sensation of chest tightness like wrapped in bungy cords. My legs and often my arms too feel light and like gelatin . He notes this is the 4th such episode in his life, has had succinct periods of elevated anxiety (similar to current presentation) in the past. Each time episode is initially triggered by an extreme panic attack followed by period of sustained, heightened anxiety, last 7-8 months, which one day, out of the blue, spontaneously resolves. He notes this time it still has not resolved and constant feeling of low-grade panic and anxiety persist. Denies any full blown panic attacks since April. Has also experiences panic attacks which did not trigger these protracted episodes. Last time he experienced one of these episodes was in 2022 ([facility] x2 during this time). He shares that he was driving in his car one day (no specific events occurred) and out of nowhere the feeling instantly resolved like a switch turned off and then immediately found himself crying with relief. Past Psychiatric History: PHPx2: 04/2023 and 02/2023 to [facility] [place] No inpatient, no detox rehab 2 times [facility] within past several weeks, due to increased anxiety, depression, panic Med trials: Fluoxetine and BuSpar in past with good effect. Ativan in past, (sedating) Recently began working with [facility] providers. [facility] Medical History (Updated 11/28/24 @ 13:33 by Emelina Aguilar RN) Elevated HDL Vitamin D deficiency Surgical History (Updated 11/23/24 @ 10:55 by Emelina Aguilar RN) History of removal of cyst Family History: Mother: Opioid use disorder. Father: Panic attacks Sister: ADHD Brother: Anxiety Social History: Raised by parents until they when he was a child. Mother has heroin addiction, patient not sure if she is currently sober. Has several half siblings. Met developmental milestones as expected. Reports he had difficulty paying attention in school, but got good grades. Attended high school, quit in senior year due to panic attacks. 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 Lives with girlfriend of 6 years, disc cry barrier as supportive. Trauma History: Unknown Diagnostics Vital Signs (24Hr): BMI result Body Mass Index 29.1 Meds/Allergies Meds Home Medications ?Medication ?Instructions ?Recorded ?Confirmed ?Type clonidine HCl 0.1 mg tablet 0.1 mg PO BID PRN Anxiety, insomnia 07/24/24 11/23/24 History cetirizine 10 mg tablet 10 mg PO DAILY 11/23/24 11/23/24 History ergocalciferol (vitamin D2) 1,250 50,000 unit PO QWEEK 11/23/24 11/23/24 History mcg (50,000 unit) capsule Allergies Allergies Allergy/AdvReac Type Severity Reaction Status Date / Time environmental allergies Allergy Runny Nose Verified 07/24/24 11:56 shellfish derived Allergy Unknown Verified 07/24/24 11:56 Mental Status Exam Mental Status Exam Narrative: Alert, oriented, in no acute distress. Calm, cooperative, engaged. No psychomotor agitation or neurovegetative retardation. Eye contact maintained. Mood anxious, affect variable, mood congruent. Speech normal. Thought process linear, coherent. Thought content related to stressors, denies any hopelessness or SI. Denies any aggressive ideation or HI. No paranoia or delusional content elicited. No evidence of psychosis. Insight and judgment - fair but adequate. Assessment & Plan Assessment & Plan (1) Panic disorder: Status: Inactive Code(s): F41.0 - Panic disorder [episodic paroxysmal anxiety] (2) Other anxiety states: Status: Acute Code(s): F41.1 - Generalized anxiety disorder Plan Admit to PHP VS reviewed: nora, BP 127/90;?88 bpm will check EKG today encouraged to take lorazepam BID (AM/afternoon) x few days to see if this can tsai off cycling anxiety or consider switching to clonazepam?for brief but intense/consistent 3-4 day trial can break episode Routine lab work for Wednesday UDS as indicated [facility] reviewed Continue to monitor as per protocol Patient educated on: diagnosis, medication risk/benefits and medical condition Informed Consent: understands Reason for continued partial hosp. stay Substantial Risk for: rapid decompensation and med/psych decompensation Certification I certify that partial hospital treatment is medically necessary due to the symptoms and problems resulting from the patient's mental illness and the failure to treat the patient at the partial hospital level of care would likely result in the patient requiring inpatient psychiatric care which could not be prevented at a less intensive level of care. Time Spent With Patient Time: Total time managing care of this patient today __90__ minutes.
--- NOTE | 2024-11-27 22:47 | P.PNPSP_ITS ---
Subjective Subjective Date of Service: 11/27/24 Reason For Visit: anxiety Interim History: Anxiety issues persist. Especially body anxiety, jitteriness, muscle tension, feeling thready, palpitations. Constant near-panic feeling, it has not let up even a moment since April. Delays onset of sleep but once asleep he is unaware if the anxiety. If he wakes for even a moment, he is acutely aware that it (anxiety) is still there . Lorazepam does alleviate only briefly, aggravating factors include laying on stomach. Complains of feeling increasingly tired over past 7 months. No energy. Prior to April he had not had such an episode since a year prior. In reviewing history to explore associated symptoms and/or correlating factors, he is noted to have 3 prior episodes and current episode all set off/started around February-March and lasting for a number of months (~6 months) before spontaneously resolving. This is the longest period it has persisted beyond 5-6 months. He is noted to have environmental allergies (weed, grass, many other types of pollen, trees, mold, etc) which are usually most problematic in late Spring/early Summer. He usually takes cetirizine during the Sri and Summer. which appears to coincide with episodes. Unclear if this may be related to an allergic/inflammatory response or perhaps medication related. Trying to rule out other (medical) causes, otherwise patient presumed to be suffering from Panic disorder. Interestingly he usually uses of cetirizine for first few months of episode. This year he was referred to ENT in the Fall and was told he had continue on cetrizine regularly (which he has been continually taken episode until allergies trevin. We review some of early returns on recent lab work, still waiting for remaining lab work (renal, CMP). EKG reviewed appears normal (NSR with sinus arrhythmia) may be related to anxiety-affected breathing pattern. He is also noted to have QT interval which appears to run on the low end of normal range on the 4 x EKGs in the system. (unlikely this is clinically relevant, however would consider whether cetirizine may contribute to issue(shortening QT ?silent Afib, which seem highly unlikely, but nonetheless will try ruling out these issues given patient cardiac complaints). Medication Compliance: Yes Side effects from medications: No Attending Groups: Yes Review of Systems Acute medical concerns: No Mental Status Exam Mental Status Exam Narrative: Alert, oriented, in no acute distress. Calm, cooperative, engaged. No psychomotor agitation or neurovegetative retardation. Eye contact maintained. Mood anxious, affect variable, mood congruent. Speech normal. Thought process linear, coherent. Thought content related to stressors, denies any hopelessness or SI. Denies any aggressive ideation or HI. No paranoia or delusional content elicited. No evidence of psychosis. Insight and judgment - fair to good Diagnostics Vital Signs (24Hr): BMI result Body Mass Index 29.1 Assessment & Plan Assessment & Plan (1) Panic disorder: Status: Inactive Code(s): F41.0 - Panic disorder [episodic paroxysmal anxiety] (2) Other anxiety states: Status: Acute Code(s): F41.1 - Generalized anxiety disorder Assessment and Plan: rule out anxiety due to medical condition Plan Reviewed initial lab findings and EKG with patient switch to clonazepam 05.mg BID (AM and late afternoon/evening) x few days to see if tsai of cycling anxiety will hold lorazepam BID (AM/afternoon) will also try holding cetirizine for next few days to see if there is any change if patient allows will consider treatment options with ADs vs Buspar vs TCA vs pregabalin or guanfacine ER Routine lab work for Wednesday UDS as indicated MassPat reviewed Continue to monitor Patient educated on: diagnosis, medication risk/benefits and medical condition Informed Consent: understands Reason for contiued partial hosp. stay Substantial Risk for: med/psych decompensation Certification I certify that partial hospital treatment is medically necessary due to the symptoms and problems resulting from the patient's mental illness and the failure to treat the patient at the partial hospital level of care would likely result in the patient requiring inpatient psychiatric care which could not be prevented at a less intensive level of care. Total time managing care of this patient today __30__ minutes. Discharge Plan Discharge Attending provider: Mirela Vega Medications: Continued clonazepam 0.5 mg tablet 0.5 mg PO BID PRN (Reason: anxiety) Qty: 14 0RF Discontinued lorazepam 0.5 mg tablet 0.5 mg PO BID PRN (Reason: anxiety) Patient Comments: Last took a week ago taking 0.25 mg. No Action cetirizine 10 mg tablet 10 mg PO DAILY ergocalciferol (vitamin D2) 1,250 mcg (50,000 unit) capsule 50,000 unit PO QWEEK Rx Instructions: Take one tab once a week. clonidine HCl 0.1 mg tablet 0.1 mg PO BID PRN (Reason: Anxiety, insomnia) Patient Comments: Patient stated he takes as needed. Rx Instructions: Last filled 07/2024 #60 Print Language: Andorran
--- NOTE | 2024-11-29 14:26 | HO.PHP ---
[facility] staff member faxed and emailed [facility] for OP therapy services. [facility] staff member is awaiting to hear back on when the scheduled appointment date and time is.
--- NOTE | 2024-12-01 23:57 | P.PNPSP_ITS ---
Subjective Subjective Date of Service: 12/01/24 Reason For Visit: anxiety Diagnostics Vital Signs (24Hr): BMI result Body Mass Index 29.1 Assessment & Plan Certification I certify that partial hospital treatment is medically necessary due to the symptoms and problems resulting from the patient's mental illness and the failure to treat the patient at the partial hospital level of care would likely result in the patient requiring inpatient psychiatric care which could not be prevented at a less intensive level of care. Total time managing care of this patient today ____ minutes. Discharge Plan Discharge Attending provider: Mirela Vega Medications: New clonazepam 0.5 mg tablet 0.5 mg PO TID Qty: 20 0RF Continued clonazepam 0.5 mg tablet 0.5 mg PO BID PRN (Reason: anxiety) Qty: 14 0RF Discontinued lorazepam 0.5 mg tablet 0.5 mg PO BID PRN (Reason: anxiety) Patient Comments: Last took a week ago taking 0.25 mg. No Action cetirizine 10 mg tablet 10 mg PO DAILY ergocalciferol (vitamin D2) 1,250 mcg (50,000 unit) capsule 50,000 unit PO QWEEK Rx Instructions: Take one tab once a week. clonidine HCl 0.1 mg tablet 0.1 mg PO BID PRN (Reason: Anxiety, insomnia) Patient Comments: Patient stated he takes as needed. Rx Instructions: Last filled 07/2024 #60 Print Language: [place] Islander
[2024-12-05 10:21] VITALS: BP 102/70; PULSE 72
--- NOTE | 2024-12-11 16:55 | P.PNPSP_ITS ---
Subjective Subjective Date of Service: 12/11/24 Reason For Visit: anxiety Diagnostics Vital Signs (24Hr): BMI result Body Mass Index 29.1 Assessment & Plan Certification I certify that partial hospital treatment is medically necessary due to the symptoms and problems resulting from the patient's mental illness and the failure to treat the patient at the partial hospital level of care would likely result in the patient requiring inpatient psychiatric care which could not be prevented at a less intensive level of care. Total time managing care of this patient today ____ minutes. Discharge Plan Discharge Attending provider: Mirela Vega Medications: New cholecalciferol (vitamin D3) [Vitamin D3] 125 mcg (5,000 unit) tablet 125 mcg PO DAILY Qty: 30 2RF propranolol 10 mg tablet 10 mg PO BID PRN (Reason: anxiety) Qty: 30 0RF buspirone 5 mg tablet 5 mg PO TID Qty: 30 0RF Changed cetirizine 10 mg tablet 10 mg PO DAILY PRN (Reason: Allergy Symptoms) Qty: 30 0RF clonazepam 0.5 mg tablet 0.5 mg PO DAILY PRN (Reason: as directed) Qty: 20 0RF Discontinued lorazepam 0.5 mg tablet 0.5 mg PO BID PRN (Reason: anxiety) Patient Comments: Last took a week ago taking 0.25 mg. ergocalciferol (vitamin D2) 1,250 mcg (50,000 unit) capsule 50,000 unit PO QWEEK Rx Instructions: Take one tab once a week. clonidine HCl 0.1 mg tablet 0.1 mg PO BID PRN (Reason: Anxiety, insomnia) Patient Comments: Patient stated he takes as needed. Rx Instructions: Last filled 07/2024 #60 Stand Alone Forms: Patient Portal Discharge page Patient Education: Generalized Anxiety Disorder (ED), Panic Disorder (ED), Panic Disorder (DC) Print Language: Macedonian
== END 2024-12-11 23:59 | disposition home or self-care (01) ==
LOC: HO.PHPA 11:15
PROVIDERS: Visit Provider Psychiatry & Neurology Psychiatry
DX: F41.0 Panic disorder [episodic paroxysmal anxiety] (principal); F41.1 Generalized anxiety disorder
CPT/HCPCS: 90791; 90853

== ENCOUNTER 2025-04-23 14:21 | Outpatient (REF) | payer OTHER, SELFPAY ==
--- OUTSIDE RECORDS SUMMARY | 2025-04-23 14:56 | XMS_ITS | Data Portability ---
Author Organization [place] - [facility], Allergy Address [address] [address] Care Team Providers Care Host/Hostess Head Name Role Phone LUIZ RUTHY Referring Provider [phone] Assessment Encounter Date Assessment Date Assessment LastModified [...] changes, I did also recommend seeing an soda dialyzer . [email or web address] Not available 11/01/2024 11:16:08 Plan of Treatment Reminders Order Date Submit Date Provider Last Modified By Organization Details Last Modified Time Details Appointments None recorded. Lab None recorded. Referral None recorded. Procedures None recorded. Surgeries None recorded. Imaging MRI, brain + internal auditory canal, w/wo contrast 2024 025 jany [facility] ([facility]), [address], [place], [address], 10:53:15 Medication Orders None recorded. Patient TargetsNo targets recorded. Patient InstructionsNo instructions recorded. Reason for Referral None Reported. Results Created Date Observation Date Name Description Value Unit Range Abnormal Flag Note LastModifiedBy Organization Detail LastModifiedTime 10/24/19 audio gram No observ ation record ed. BARCODE Not Available 2024 10:49:01 11/03/19 25 10/30/2024 MRI, brain + brain stem, w/wo contr ast [facility] Access ion Number : [id number] [place] Name: Jaz [facility] Record Number : [id number] Date of : 2000 Date of Exam: 2024 Referr ing Physic trista: Tamara Cobb [facility] [address], [place] [address] [place] [address] Exam: MR Brain (C-/C+ ) CPT 63012 Room Descri ption: [facility] Espr 1.5 MR Brain (C-/C+ ) CPT 26120 INDICA TION / CLINIC AL QUESTI ON: R42 - Dizzin ess and giddin ess, , UNMAPP ED LAB (MRI, BRAIN + PROMPT CARE RN AL AUDITO RY CANAL, W/WO CONTRA ST) R42 - Dizzin ess and giddin ess, , UNMAPP ED LAB (MRI, BRAIN + PROMPT CARE RN AL AUDITO RY CANAL, W/WO CONTRA ST) Depart ment Protoc ol TECHNI QUE: MRI of the brain with attent ion to the marketing pr intern al audito ry canals was perfor med [...] or abnorm al enhanc ement in the marketing pr intern al audito ry canals or cerebe llopon [...] ms. Electr onical ly Signed By: A[facility] ([facility] [address] [facility] [place], [address], 12/27/2024 11:04:00 Result Notes Documentation Provider Name and Address Organization Details Recorded Time Mri, Brain + Brain Stem, W/wo Contrast : [facility] Accession Number: [id number] Patient Name: Omar Foster Date of : 2000 Date of Exam: 10-30-2024 Referring Physician: Tamara Miles [facility] 100 [facility], [facility] 100 [place] [address] Exam: MR Brain (C-/C+) CPT 12083 Room Description: [facility] 1.5 MR Brain (C-/C+) CPT 84267 INDICATION / CLINICAL QUESTION: R42 - Dizziness and giddiness, , UNMAPPED LAB (MRI, BRAIN + INTERNAL AUDITORY CANAL, W/WO CONTRAST) R42 - Dizziness and giddiness, , UNMAPPED LAB (MRI, BRAIN + INTERNAL AUDITORY CANAL, W/WO CONTRAST) Department Protocol TECHNIQUE: MRI of the brain with attention to the internal auditory canals was performed with and without contrast utilizing sagittal T1, axial T2, axial CISS, axial and coronal T1, and post-contrast axial and coronal T1-weighted sequences. 18 mL Dotarem intravenous contrast was administered. COMPARISON: None. FINDINGS: IAC: There is no mass or abnormal enhancement in the internal auditory canals or cerebellopontine angles. Course and caliber of the 7th and 8th cranial nerves is normal bilaterally. Fluid signal is preserved in the inner ear structures bilaterally. Brainstem demonstrates normal signal. BRAIN and EXTRA-AXIAL SPACES: No significant abnormality of the visualized portions of the brain and extra-axial spaces. EXTRACRANIAL SOFT TISSUES: Visualized portions of the extracranial soft tissues are unremarkable. There is minimal scattered paranasal sinus mucosal thickening and there is patchy fluid signal in the bilateral mastoid air cells. BONES: Visualized marrow signal is preserved. IMPRESSION: No retrocochlear abnormality to explain the patient?s symptoms. Electronically Signed By: Ayla MILES MD [address] [place] [address],[address], [phone], [facility] 12/27/2024 11:04:00 Problems Name Problem SNOMED Code Status Onset Date Resolution Date Notes Provider Name and Address Organization Details Recorded Time Abnormal auditory perception 19419470 Active 025 PRITI BALLESTEROS [address] [facility],[place] [address], [place], [address], [place] - [facility] 09:43:35 Dizziness and giddiness 553080016 Active 025 TAMARA MILES MD 100 [facility],[address], [address], [facility] - [facility] 11:21:21 Clearing throat - hawking [id number] Active 025 TAMARA MILES MD 100 [facility], [address] [place] [address], [phone], [facility] - [facility] 5 11:11:02 Problem Notes None recorded. Procedures Surgical History Date Name Laterality Status Provider Name and Address Organization Details Recorded Time 10/23/19 25 Fiberoptic Laryngoscopy (Comprehensive) completed TAMARA MILES MD 100 [facility],[address], [address], [facility] - [facility] [place] 11/01/2024 11:10:12 10/23/19 25 Air & Speech Audio with Tymps - 30899, 24958 & 83359 completed CARLOS EMERSON, AUD 100 [facility], [place], [address], [facility] - [facility] 10/23/2024 09:44:38 Imaging Results None recorded. Procedure Notes None recorded. Medical Equipment None Reported. Allergies No known drug allergies Medications Name Sig Start Date Stop Date Status Note LastModified by Organization Details LastModified Time freestyle lancets misc active Not Available Not Available Not Available amoxicillin 500 mg capsule TAKE 1 CAPSULE BY MOUTH EVERY 12 HOURS FOR 10 DAYS 10/23 completed Not Available Not Available Not Available buspirone 5 mg tablet TAKE 1 TABLET BY MOUTH THREE TIMES DAILY active Not Available Not Available No t Available venlafaxine ER 37.5 mg capsule,ext ended [...] mg tablet TAKE 1 TABLET BY MOUTH ONCE DAILY 01/22 completed Not Available Not Available Not Available sucralfate 1 gram tablet TAKE 1 TABLET BY MOUTH TWICE DAILY 10/23 completed Not Available Not Available Not Available FreeStyle Lancets 28 gauge USE TO TEST BLOOD GLUCOSE DAILY active Not Available Not Available No t Available prednisone 20 mg tablet TAKE 2 TABLETS BY MOUTH DAILY FOR 5 DAYS 10/23 completed Not Available Not Available Not Available clonazepam 0.5 mg tablet TAKE 1 TABLET BY MOUTH DAILY NEEDED FOR ANXIETY active Not Available Not Available No t Available omeprazole 40 mg capsule,del ayed release TAKE 1 CAPSULE BY MOUTH DAILY 10/23 completed Not Available Not Available Not Available propranolol 10 mg tablet TAKE 1 -2 TABLET BY MOUTH TWICE DAILY NEEDED ANXIETY active Not Available Not Available No t Available lorazepam 0.5 mg tablet TAKE 1 TABLET BY MOUTH TWICE DAILY NEEDED FOR ANXIETY 01/22 completed Not Available Not Available Not Available buspirone 7.5 mg tablet active Not Available Not Available Not Available omeprazole 20 mg capsule,del ayed release TAKE 1 CAPSULE BY MOUTH DAILY 01/06 /2025 completed Not Available Not Available Not Available montelukast 10 mg tablet TAKE 1 TABLET BY MOUTH DAILY 10/23 completed Not Available Not Available Not Available ergocalcife rol (vitamin D2) 1,250 mcg (50,000 unit) capsule active Not Available Not Available Not Available hydroxyzine [...] USE 2 SPRAYS IN EACH NOSTRIL DAILY 01/22 completed Not Available Not Available Not Available sertraline 50 mg tablet TAKE 1 TABLET BY MOUTH EVERY MORNING 10/23 completed Not Available Not Available Not Available FreeStyle Lite Strips USE TO TEST BLOOD GLUCOSE DAILY active Not Available Not Available No t Available Vitamin D3 125 mcg (5,000 unit) tablet TAKE 1 TABLET BY MOUTH EVERY DAY active Not Available Not Available No t Available Vitals Date Recorded Body height Body mass index (BMI) Body weight Provider Name and Address Organization Details Last Updated DateTime 10/23/2024 172.72 cm 29 kg/m2 62123.35 g Raquel Benites [place] [facility] 10/23/2024 10:54:19 Date Recorded Body height Body mass index (BMI) Body weight Provider Name and Address Organization Details Last Updated DateTime 01/22/2025 172.72 cm 28.4 kg/m2 92743.77 g Raquel Benites [place] [facility] 01/22/2025 10:09:57 Social History None recorded. Functional Status Question Answer Note LastModified by Organizat ion Details LastModified Time Do you or have you ever used any other forms of tobacco or nicotine? Yes Information not available 11/01/2024 Do you or have you ever used e-cigarettes or vape? Current user of electronic cigarettes Information not available 11/01/2024 Mental Status None recorded. Family History Nothing Reported. Medical History Condition Response Allergies/Hayfever Y Heart Problems N Anxiety Y Tonsil Infections Y Emphysema N Migraines N Thyroid Problems N Glaucoma N Depression Y COPD N Developmental Delay N Nasal or Sinus Problems Y Anemia N Immune System Disorder N Anesthesia Complications N Heart Attack (DC) N Other Skin Condition N Diabetes Y Rhinitis N Bleeding Disorder N Food Allergy N Arthritis N Hearing Loss Y Hyperlipidemia N Cancer N Stroke N Dementia N Nasal polyps N Asthma N High Cholesterol Y Sleep Disorder N GERD/Reflux Y Liver Disease N Headaches Y Fibromyalgia N Hypertension N Speech Delay N Kidney Disease N Past Encounters Encounter ID Performer Location Encounter Start Date Encounter Closed Date Diagnosis/Indication Diagnosis SNOMED-CT Code Diagnosis ICD10 Code Diagnosis Note [id number] TAMARA MILES MD [facility] [address] [address] 10/23/2024 09:25:23 10/23/2024 11:29:45 Abnormal auditory perception 17522270 H93.299 Right Ear:Normal hearing with excellent speech discrimina tion.Type Ad tympanogra m.Left Ear:Normal hearing with excellent speech discrimina tion.Type A tympanogra m. Dizziness and giddiness 382254161 R42 Clearing t hroat - hawking 385880326 R05.9 [id number] TAMARA MILES MD [facility] [address] [address] 01/22/2025 10:01:13 01/22/2025 10:34:50 Clearing throat - hawking 566162502 R05.9 24-year-ol d male presents for reassessme nt. He had a constellat ion of symptoms including fluctuatin g ear pressure, tinnitus, dizziness, headaches, throat clearing some of which improved with allergy medication which he has not been on lately as he was ill.He now has intermitte nt sore throat which is probably related to his recent infections and being off the allergy medication s. FOL at his last visit was normal.I recommende d going back on his allergy medication s, salt water gargles, short course of antireflux agent. If no improvemen t after 6 weeks, we can proceed with repeat flexible laryngosco py. Health Concerns Section Related Observation LastModified by Organization Detai ls LastModified Time None Recorded Concern Status LastModified by Organization Details LastModified Time None Recorded Advance Directives Directive None Recorded Payers Insurance Date Sequence Insurance Name Policy Number Policy Francois Covered Member ID Francois Member ID Guarantor Name 01/22/[address] [place] [address] [id number] Omar Foster [id number] Omar Foster Notes Date Note Type Note Provider Name and Address Organization Details Recorded Time 10/23/19 25 text/htm l 23 yo M with a history of anxiety with multiple concerns: Fluctuating ear pressure, tinnitus Usually right is worse since April 19, not sure if inciting factordoes clench teeth now on allergy meds, could not take allergy meds, then diagnosed with fluid in the ears, more pressure when does take it 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[facility] Allergy, multiple sensitivities all tree weed, grass [...] to try sertraline prediabetes TAMARA MILES MD [address] [place] [address], [phone], [facility] 11/01/2024 11:21:18 01/23/20 25 text/htm l 24 yo M presents for follw up migraine symptoms betternow with sore throat comes and goesHB if eats certain foods, like candies or tomato saucenot avoiding eating close to bedsidesome dairyno caffeine no dysphagiano flonase lately, had flonase sensimist ear popping but recently stopped seeing the comfort advisor due to illness, sinus infection and URIhas not been on cetirizine buspirone 5 mg TID, not helping as much on the lower dosingclonazepampropanolol not needing lately seeing psychiatrist and therapist TAMARA MILES MD [address] [place] [address],[address], [address], [facility] 01/24/2025 09:17:48
--- OUTSIDE RECORDS SUMMARY | 2025-04-23 14:56 | XMS_ITS | Clinical Summary ---
Author Organization [facility] Address [address] [place] [address] Phone Care Team Providers Care Wood Web Weaving Machine Operator Name Role Phone Unavailable Primary Care [...] 72 07/22/2016 12:00 AM EDT Temperature 36.3 C (97.4 F) 07/17/2016 12:00 AM EDT Respiratory Rate - - Oxygen Saturation - [...] 12/27/2019 12/26/2009, 02/22/2004, 08/17/2000, Additional history exists COVID-19 Vaccine ( season) 2024 Influenza Vaccines (#1) 2025 02/05/2011 Hepatitis B Vaccines Completed 07/21/1999, 03/11/1999, 2000 [...]
[2025-04-23 16:53] LABS: MANUAL DIFF FLAG NO
[2025-04-23 17:06] LABS: Hematocrit 46.7 % (42.0-52.0); Hemoglobin 16.3 g/dl (14.0-18.0); Imm Gran Abs Auto 0.06 X10*3/uL (0.00-0.03); Imm Gran Pct Auto 0.5 % (0.0-0.4); Lymphocytes Absolute Auto 2.7 X10*3/uL (1.2-4.9); Mean Corpuscular HGB Conc 34.9 g/dl (31.0-36.0); Mean Corpuscular Hemoglobin 31.5 pg (27.0-33.0); Mean Corpuscular Volume 90.2 fL (80.0-98.0); NRBC Abs Auto 0.000 X10*3/uL (0.0-0.012); NRBC Pct Auto 0.0 /100WBC (0.0-0.2); Platelet Count 332 X10*3/uL (160-400); Red Blood Count 5.18 X10*6/uL (4.60-5.80); White Blood Count 11.0 X10*3/uL (4.8-10.8)
== END 2025-04-23 14:22 | disposition home or self-care (01) ==
LOC: HO.HMGCLDS 14:21
PROVIDERS: PCP Internal Medicine; Visit Provider Nurse Practitioner Psychiatric/Mental Health
DX: Z79.899 Other long term (current) drug therapy (principal)
CPT/HCPCS: 36415; 85025

== ENCOUNTER 2025-07-09 10:49 | Outpatient (REF) | payer OTHER, SELFPAY ==
--- OUTSIDE RECORDS SUMMARY | 2025-07-09 13:22 | XMS_ITS | Encounter Summary ---
Author Organization [facility] Address [address] [place] [address] Phone Care Team Providers Care Inspector Floor Name Role Phone Unavailable Primary Care Provider Unavailabl e Encounter Details Date Type Department Care Team (Late st Contact Info) Description 06/03/2017 Conversion Encounter [facility] - [address] [address] Social History Tobacco Use Types Packs/Day Years [...]
--- OUTSIDE RECORDS SUMMARY | 2025-07-09 13:22 | XMS_ITS | Encounter Summary ---
Author Organization [facility] Address [address] [place] [address] Phone Care Team Providers Care Auto Service Instructor Name Role Phone Unavailable Primary Care Provider Unavailabl e Encounter Details Date Type Department Care Team (Late st Contact Info) Description 09/07/2011 Documentation [facility] [address] [place] [address] Family Medicine, Physician [address] [place], [place] [address] Social History Tobacco Use Types Packs/Day Years [...]
--- OUTSIDE RECORDS SUMMARY | 2025-07-09 13:22 | XMS_ITS | Encounter Summary ---
Author Organization [facility] Address [address] [place] [address] Phone Care Team Providers Care Dinner Cook Name Role Phone Unavailable Primary Care Provider Unavailabl e Encounter Details Date Type Department Care Team (Late st Contact Info) Description 09/18/2016 Documentation [facility] [place] [address] [place] [address] Family Medicine, Physician [address] [place] [address] Social History Tobacco Use Types Packs/Day Years [...]
--- OUTSIDE RECORDS SUMMARY | 2025-07-09 13:22 | XMS_ITS | Clinical Summary ---
Author Organization [facility] Address [address] [place] [address] Phone Care Team Providers Care Racing Car Driver Name Role Phone Unavailable Primary Care Provider [...] 08/17/2000, Additional history exists Influenza Vaccines (#1) 2025 02/05/2011 COVID-19 Vaccine ( season) 2025 Hepatitis B Vaccines Completed 07/21/1999, 03/11/1999, 1998 [...]
[2025-07-09 13:52] LABS: Magnesium 2.1 mg/dL (1.6-2.6)
[2025-07-09 14:08] LABS: Thyroid Stimulating Hormone 0.60 uIU/mL (0.32-4.0)
[2025-07-13 18:54] LABS: Testosterone, Free 130.3 pg/mL (35.0-155.0)
== END 2025-07-09 10:50 | disposition home or self-care (01) ==
LOC: HO.HMGCLDS 10:49
PROVIDERS: PCP Internal Medicine; Visit Provider Nurse Practitioner Psychiatric/Mental Health
DX: Z79.899 Other long term (current) drug therapy (principal)
CPT/HCPCS: 36415; 82306; 83735; 84402; 84403; 84443

== ENCOUNTER 2025-10-11 19:42 | Emergency (ER) | payer OTHER, SELFPAY ==
[2025-10-11 19:45] VITALS: BP 155/95; PULSE 100; RESP 18; TEMP 36.6; O2SAT 100; BMI 30.4
--- NOTE | 2025-10-11 21:38 | ED_ITS ---
HPI - Eye Problem General Chief complaint: Eye Problems Stated complaint: both eye injury (sprayed with refrigerant) Time Seen by Provider: 10/11/25 21:30 History of Present Illness ED Provider: Theo Hernandez MD HPI Narrative: 24-year-old male healthy with seasonal allergies on cetirizine and sertraline daily no eye issues no contact lenses just prior to arrival he was trying to break ice in his mini Fridge with a screwdriver and he broke the refrigerant tubing which he felt sprayed mostly into the left side of the face and possibly his left eye. No redness of the eye no tearing no burning sensation no described vision deficits or blurred. He took a picture of the refrigerant which is described as are 600 a/0.88 oz with a foaming agent of cyclopentolate Related Data Previous Rx's ?Medication ?Instructions ?Recorded buspirone 5 mg tablet 5 mg PO TID as directed #30 tabs 12/11/24 cetirizine 10 mg tablet 10 mg PO DAILY PRN Allergy 0 12/11/24 Symptoms #30 tabs cholecalciferol (vitamin D3) 125 125 mcg PO DAILY #30 tabs 12/11/24 mcg (5,000 unit) tablet (Vitamin D3) clonazepam 0.5 mg tablet 0.5 mg PO DAILY PRN Anxiety #14 12/25/24 tabs propranolol 10 mg tablet 10 - 20 mg (1 - 2 x 10 mg) P O BID 12/25/24 PRN anxiety #30 tabs Allergies Allergy/AdvReac Type Severity Reaction Status Date / Time environmental allergies Allergy Runny Nose Verified 10/11/25 19:47 shellfish derived Allergy Unknown Verified 10/11/25 19:47 [facility] Past Medical History Medical History (Updated 10/11/25 @ 21:44 by Theo Hernandez MD) Elevated HDL Vitamin D deficiency Surgical History (Updated 11/23/24 @ 10:55 by Emelina Aguilar RN) History of removal of cyst Social History Social History Household Members: Significant Other and Family Household Members Other:: two Cats Alcohol intake: current Alcohol intake frequency: a few times a month Alcohol type: beer and hard liquor Patient Tobacco Use Status: Current everyday Tobacco user Substance Use Type: Marijuana Do you have a plan to hurt others: No Plan Physical Exam Exam: Exam: Gross visual acuity normal. Bilateral eyes with no conjunctival injection. No hypopyon or hyphema. No tearing or irritation or lip abnormalities. The face is without travis or irritation or rash. PH of the left eye/tear film appears to be in the 7-7.5 range based on color I pH I pH procedure Vital Signs: Vital Signs: Last Vital Signs Temp 98 F 10/11/25 19:45 Pulse 100 10/11/25 19:45 Resp 18 10/11/25 19:45 BP 155/95 H 10/11/25 19:45 Pulse Ox 100 10/11/25 19:45 O2 Del Method Room Air 10/11/25 19:45 BMI result Body Mass Index 30.4 Medical Decision Making Medical Decision Making MDM Narrative: [age] male who presented for evaluation after concern for exposure a refrigerant to the left eye. The refrigerant is 100% isobutane. Foaming agents cyclopentolate. Based on my examination I have low suspicion that he actually sustained any substantial chemical exposure to the conjunctival. There was no injection erythema tearing or irritation. PH is appearing in normal range. Counseled on return precautions discharged home after reassurance Discharge Plan Discharge Clinical Impression: Chemical exposure of eye Patient Disposition: Home, Self-Care Instructions: Eye Pain (ED) Additional Instructions: As we discussed based on your examination pH testing of the eye and description of the potential exposure event I have low suspicion that you had any substantial chemical irritation or burn or other deleterious effect of the ref rigerator exposure. If you develop pain inflammation of your eye vision changes tearing redness return back for evaluation Prescriptions: No Action cholecalciferol (vitamin D3) [Vitamin D3] 125 mcg (5,000 unit) tablet 125 mcg PO DAILY Qty: 30 2RF cetirizine 10 mg tablet 10 mg PO DAILY PRN (Reason: Allergy Symptoms) Qty: 30 0RF buspirone 5 mg tablet 5 mg PO TID Qty: 30 0RF clonazepam 0.5 mg tablet 0.5 mg PO DAILY PRN (Reason: Anxiety) Qty: 14 0RF propranolol 10 mg tablet 10 - 20 mg PO BID PRN (Reason: anxiety) Qty: 30 0RF Print Language: Venezuelan
[2025-10-11 21:58] VITALS: BP 155/95; PULSE 100; RESP 18; TEMP 36.6; O2SAT 100
--- OUTSIDE RECORDS SUMMARY | 2025-10-11 22:13 | XMS_ITS | Encounter Summary ---
Author Organization [facility] Address [address] [place] [address] Phone Care Team Providers Care Proofsheet Corrector Name Role Phone Unavailable Primary Care Provider Unavailabl e Encounter Details Date Type Department Care Team (Late st Contact Info) Description 06/03/2017 Conversion Encounter [facility] - [address] [address] Social History Tobacco Use Types Packs/Day Years [...]
--- OUTSIDE RECORDS SUMMARY | 2025-10-11 22:13 | XMS_ITS | Data Portability ---
Author Organization [place] - [facility], Allergy Address [address] [address] Care Team Providers Care Examining Officer Name Role Phone RUTHY DEE Referring Provider [phone] Assessment Encounter Date Assessment Date Assessment LastModified [...] changes, I did also recommend seeing an director of neurology. [email or web address] Not available 11/01/2024 11:16:08 09/21/2025 09/21/2025 Patient with recent history of episodic positionally induced vertigo, now resolved. [place]-Hallpike was negative for vertigo and rotary nystagmus. Audiometric testing 09/17/2025 demonstrated normal auditory thresholds with normal tympanometry. We discussed that the patient s previous pattern of symptoms are most consistent with benign paroxysmal positional vertigo (BPPV) which has resolved spontaeously. The pathophysiology of BPPV was discussed in detail. Patient currently requires no further workup or treatment. BPPV can recur and if the classic positionally induced symptoms do recur, patient can be provided with a referral to physical therapist knowledgeable with performance of Natasha maneuvers and vestibular therapy.He will reach out to me via portal if vertigo returns. I suspect the pharyngitis is related to an acute viral illness. Reviewed supportive including adequate hydration and uczx-zfv-okjmtwl analgesics as needed for discomfort. If no improvement in 4-6 weeks, patient will return for fiberoptic laryngoscopy. In the interim, he will continue daily allergy medications and restart SCIT. [email or web address] Not available 09/21/2025 12:36:43 Plan of Treatment Reminders Order Date Submit Date Provider Last Modified By Organization Details Last Modified Time Details Appointments Test Results 15 2025 10:00A M EDWIN NASH PA-C Not available Not available Not available Lab None recorded . Referral None recorded . Procedures None recorded . Surgeries None recorded . Imaging MRI, brain + internal auditory canal, w/wo contrast 2024 025 [facility] ([facility]), [address], [place], [address], 11/01/2024 10:53:15 Medication Orders None recorded . Patient TargetsNo targets recorded. Patient InstructionsNo instructions recorded. Reason for Referral None Reported. Results Created Date Observation Date Name Description Value Unit Range Abnormal Flag Note LastModifiedBy Organization Detail LastModifiedTime 10/24/19 25 audio gram No observ ation record ed. BARCODE Not Available 2024 10:49:01 11/03/19 25 10/30/2024 MRI, brain + brain stem, w/wo contr ast [facility] Access ion Number : [id number] [place] Name: [facility] Record Number : [id number] Date of : 2000 Date of Exam: 2024 Referr ing Physic trista: Tamara Cobb [facility] [place] [address], [place] [address] [place] [address] Exam: MR Brain (C-/C+ ) CPT 22988 Room Descri ption: [facility] Espr 1.5 MR Brain (C-/C+ ) CPT 60122 INDICA TION / CLINIC AL QUESTI ON: R42 - Dizzin ess and giddin ess, , [facility] ED LAB (MRI, BRAIN + CIRCUIT COURT JUDGE AL AUDITO RY CANAL, W/WO CONTRA ST) R42 - Dizzin ess and giddin ess, , [facility] ED LAB (MRI, BRAIN + CIRCUIT COURT JUDGE AL AUDITO RY CANAL, W/WO CONTRA ST) Depart ment Protoc ol TECHNI QUE: MRI of the brain with attent ion to the qa intern al audito ry canals was perfor [...] or abnorm al enhanc ement in the qa intern al audito ry canals or cerebe [...] ms. Electr onical ly Signed By: Ayla camarillo [facility] ([facility]) [address], [place], [address], 12/27/2024 11:04:00 09/17/20 25 audio gram No observ ation record ed. BARCODE Not Available 2024 12:01:31 09/17/20 25 audio gram No observ ation record ed. [email or web address] Not Available 10/2024 12:02:03 09/17/20 25 audio gram No observ ation record ed. BARCODE Not Available 2024 13:42:07 Result Notes Documentation Provider Name and Address Organization Details Recorded Time Mri, Brain + Brain Stem, W/wo Contrast : [facility] Accession Number: [id number] Patient Name: Omar Foster Date of : 2000 Date of Exam: 10-30-2024 Referring Physician: Tamara Miles [facility] [address] [address] Exam: MR Brain (C-/C+) CPT 50799 Room Description: [facility] 1.5 MR Brain (C-/C+) CPT 12833 INDICATION / CLINICAL QUESTION: R42 - Dizziness [...] symptoms. Electronically Signed By: Ayla MILES MD 100 [facility],[address], [address], [facility] - [facility] 12/27/2024 11:04:00 Problems Name Problem SNOMED Code Status Onset Date Resolution Date Notes Provider Name and Address Organization Details Recorded Time Abnormal auditory perception 98231587 Active 2024 PRITI BALLESTEROS 100 [facility], [facility], [place], [address], [place] - [facility] [place] 09:43:35 Dizziness and giddiness 904458909 Active 2024 TAMARA MILES MD 100 [facility],[place] [address], [place], [address], [facility] - [facility] [place] 11:21:21 Clearing throat - hawking 626270549 Active 2024 TAMARA MILES MD 100 [facility],[place] [address], [place], [address], [place] [facility] [place] 11:11:02 Acute pharyngitis 601129783 Active 2024 EDWIN NASH PA-C [address] [place] [address],[place] [address], [place], [address], [place] [facility] [place] 12:35:44 Allergic rhinitis 44480607 Active 2024 EDWIN NASH PA-C [address] [place] [address], [facility], [place], [address], [place] [facility] [place] 12:36:50 Problem Notes None recorded. Procedures Surgical History Date Name Laterality Status Provider Name and Address Organization Details Recorded Time 09/17/20 25 Air & Speech Audio with Tymps - 30688, 46611 & 74771 completed PRITI CAR 100 [facility],[address] [address], [place], [address], [place] [facility] [place] 09/17/2025 11:49:06 10/23/19 25 Fiberoptic Laryngoscopy (Comprehensive) completed TAMARA MILES MD 100 [facility],[address] [address], [place], [address], [facility] 11/01/2024 11:10:12 10/23/19 25 Air & Speech Audio with Tymps - 55807, 39499 & 23521 completed PRITI BALLESTEROS 100 [facility], [place], [address], [facility] 10/23/2024 09:44:38 Imaging Results None recorded. [...] tablet TAKE 1 TABLET BY MOUTH EVERY NIGHT AT BEDTIME NEEDED active Not Available Not Available No t Available loperamide 2 mg capsule TAKE 1 CAPSULE BY MOUTH EVERY 6 HOURS FOR 2 DAYS active Not Available Not Available No t Available cetirizine 10 mg tablet TAKE 1 TABLET BY MOUTH EVERY DAY TO TWICE DAILY NEEDED FOR SNEEZING OR ITCHING active Not Available Not Available No t [...] Not Available Not Available No t Available clonazepam 1 mg tablet TAKE 1 TABLET BY MOUTH DAILY NEEDED active Not Available Not Available No t Available omeprazole 40 mg capsule,del ayed release TAKE 1 CAPSULE BY MOUTH DAILY 10/23 completed Not Available Not Available Not Available acetaminoph en 500 mg tablet TAKE 1 TABLET BY MOUTH EVERY 6 HOURS FOR 7 DAYS active Not Available Not Available No t Available propranolol 10 mg tablet TAKE 1 -2 TABLET BY MOUTH TWICE DAILY NEEDED ANXIETY active Not Available Not Available No t Available lorazepam 0.5 mg tablet TAKE 1 TABLET BY MOUTH TWICE DAILY NEEDED FOR ANXIETY 01/22 completed Not Available Not Available Not Available sertraline 25 mg tablet TAKE 3 TABLETS BY MOUTH DAILY active Not Available Not Available No t Available buspirone 7.5 mg tablet TAKE 1 TABLET BY MOUTH THREE TIMES DAILY DIRECTED FOR ANXIETY active Not Available Not Available No t Available omeprazole 20 mg capsule,del ayed release [...] mg disintegrat ing tablet DISSOLVE 1 TABLET BY MOUTH EVERY 12 HOURS active Not Available Not Available No t Available fluticasone propionate 50 mcg/actuati on nasal spray,suspe nsion SHAKE LIQUID AND USE 2 SPRAYS IN EACH NOSTRIL DAILY active Not Available Not Available No t Available sertraline 50 mg tablet TAKE 1 TABLET BY MOUTH DAILY FOR DEPRESSIO N OR ANXIETY active Not Available Not Available No t Available bupropion HCl XL 150 mg 24 hr tablet, extended release TAKE 1 TABLET BY MOUTH EVERY MORNING active Not Available Not Available No t Available FreeStyle Lite Strips USE TO TEST BLOOD GLUCOSE DAILY active Not Available Not Available No t Available guanfacine ER 1 mg tablet,exte nded release 24 hr TAKE 1 TABLET BY MOUTH AT BEDTIME active Not Available Not Available No t Available Vitamin D3 125 mcg (5,000 unit) tablet TAKE 1 TABLET BY MOUTH EVERY DAY active Not Available Not Available No t Available Vitals Date Recorded Body height Body mass index (BMI) Body weight Provider Name and Address Organization Details Last Updated DateTime 10/23/2024 172.72 cm 29 kg/m2 63892.35 g Raquel Potvin [facility] 10/23/2024 10:54:19 Date Recorded Body height Body mass index (BMI) Body weight Provider Name and Address Organization Details Last Updated DateTime 01/22/2025 172.72 cm 28.4 kg/m2 68531.77 g Raquel Benites [facility] 01/22/2025 10:09:57 Date Recorded Body height Body mass index (BMI) Body weight Provider Name and Address Organization Details Last Updated DateTime 09/21/2025 172.72 cm 30.4 kg/m2 90165.47 g Simran Oroscorobert [facility] 09/21/2025 09:30:00 Social History None recorded. Functional Status Question [...] Disorder N Anesthesia Complications N Heart Attack (CT) N Other Skin Condition N Diabetes Y [...] Diagnosis SNOMED-CT Code Diagnosis ICD10 Code Diagnosis IMO Codes Diagnosis Note [id number] TAMARA MILES MD [facility] of [address] [address] 10/23/2024 09:25:23 10/23/2024 11:29:45 Abnormal auditory perception 06428483 H93.299 Right Ear:Normal hearing with excellent speech discrimina tion.Type Ad tympanogra m.Left Ear:Normal hearing with excellent speech discrimina tion.Type A tympanogra m. Dizziness and giddiness 302679452 R42 Clearing t hroat - hawking 031528755 R05.9 [id number] TAMARA MILES MD [facility] of [address] [address] 01/22/2025 10:01:13 01/22/2025 10:34:50 Clearing throat - hawking 946682372 R05.9 24-year-ol d male presents for reassessme [...] can proceed with repeat [place]. [id number] PRITI CAR [facility] of [address] [address] 09/17/2025 11:28:58 09/17/2025 11:58:09 Abnormal auditory perception 73852139 H93.299 Audiologic al evaluation results: Right ear: Normal hearing with excellent word recognitio n. Left ear: Normal hearing with excellent word recognitio n. Tympanomet ry: Right Ear:Type Ad Left Ear:Type Ad [id number] EDWIN NASH PA-C [facility] of [address] [address] 09/21/2025 09:23:12 09/21/2025 09:49:23 Dizziness and giddiness 432325705 R42 Acute pharyngitis 997598 003 J02.9 395743210 Allergic rhinitis 189726 04 J30.9 9650799 Health Concerns Section Related Observation LastModified by Organization Detai ls LastModified Time None Recorded Concern Status LastModified by Organization Details LastModified Time None Recorded Advance Directives Directive None Recorded Payers Insurance Date Sequence Insurance Name Policy Number Policy Francois Covered Member ID Francois Member ID Guarantor Name 09/21/[address] [place] [address] [id number] Omar Foster [id number] Omar Foster Notes Date Note Type Note Provider Name and Address Organization Details Recorded Time 10/23/19 25 text/htm l ROS as noted in the HPI 23 yo M with a history of anxiety with multiple concerns: Fluctuating ear pressure, tinnitus Usually right is worse since April 19, not sure if inciting factordoes clench teeth now on allergy meds, could not take allergy meds, then diagnosed with fluid in the ears, more pressure when does take it 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[employer] Allergy, multiple sensitivities all tree weed, [...] to try sertraline prediabetes TAMARA MILES MD [address] [place] [address],[address], [address], [facility] - [facility] 11/01/2024 11:21:18 01/23/20 25 text/htm l ROS as noted in the HPI 24 yo M presents for follw up migraine symptoms betternow with sore throat comes and goesHB if eats certain foods, like candies or tomato saucenot avoiding eating close to bedsidesome dairyno caffeine no dysphagiano flonase lately, had flonase sensimist ear popping but recently stopped seeing the diesel technician due to illness, sinus infection and URIhas not been on cetirizine buspirone 5 mg TID, not helping as much on the lower dosingclonazepampropanolol not needing lately seeing psychiatrist and therapist TAMARA MILES MD [address] [place] [address],[address], [address], [facility] - [facility] 01/24/2025 09:17:48 09/21/20 25 text/htm l ROS as noted in the HPI 24-year-old male with history of dizziness presents for evaluation of disequilibrium. He developed room spinning dizziness approximately 3 weeks ago after increasing sertraline dosage. This sensation lasts minutes. It is triggered by head position changes as well. He endorses mild sore throat for 2 weeks. No other upper respiratory infection symptoms. The vertigo resolved 1 week ago. Audiometric testing 09/17/2025 demonstrated normal auditory thresholds with normal tympanometry. He continues allergy medications. Taking a break from SCIT due to acute symptoms. TAMARA MILES MD [address] [place] [address], [place], [address], [facility] - [facility] 09/21/2025 13:00:11
--- OUTSIDE RECORDS SUMMARY | 2025-10-11 22:13 | XMS_ITS | Encounter Summary ---
Author Organization [facility] Address [address] [place] [address] Phone Care Team Providers Care Social Science Research Assistant Name Role Phone Unavailable Primary Care Provider Unavailabl e Encounter Details Date Type Department Care Team (Late st Contact Info) Description 09/18/2016 Documentation [facility] Family Medicine [address] [place] [address] Family Medicine, Physician [address] [place] [address] Social History Tobacco Use Types Packs/Day Years [...]
--- OUTSIDE RECORDS SUMMARY | 2025-10-11 22:13 | XMS_ITS | Continuity of Care Document ---
Author Organization [place] - [facility], [facility] Address [address] [place] [address] Care Team Providers Care [employer] Name Role Phone RUTHY DEE Referring Provider Assessment Encounter Date Assessment Date Assessment LastModified by Organization Details LastModified Time 09/21/2025 09/21/2025 Patient with recent history of episodic positionally induced vertigo, now resolved. Efra-Hallpike was negative for vertigo and rotary nystagmus. [...] illness. Reviewed supportive including adequate hydration and oosu-rbq-qqolpzi analgesics as needed for discomfort. If no improvement in 4-6 weeks, patient will return for fiberoptic laryngoscopy. In the interim, he will continue daily allergy medications and restart SCIT. [email or web address] Not available 09/21/2025 12:36:43 Plan of Treatment Reminders Order Date Submit Date Provider Last Modified By Organization Details Last Modified Time Details Appointments Test Results 15 2025 10:00A M EDWIN NASH PA-C Not available Not available Not available Lab None recorded . Referral None recorded . Procedures None recorded . Surgeries None recorded . Imaging None recorded . Medication Orders None recorded . Patient TargetsNo targets recorded. Patient InstructionsNo instructions recorded. Reason for Referral None Reported. Results Created Date Observation Date Name Description Value Unit Range Abnormal Flag Note LastModifiedBy Organization Detail LastModifiedTime 09/17/20 25 audio gram No observ ation record ed. BARCODE Not Available 2024 12:01:31 09/17/20 25 audio gram No observ ation record ed. [email or web address] Not Available 10/2024 12:02:03 09/17/20 25 audio gram No observ ation record ed. BARCODE Not Available 2024 13:42:07 Result Notes None recorded. Problems Name Problem SNOMED Code Status Onset Date Resolution Date Notes Provider Name and Address Organization Details Recorded Time Abnormal auditory perception 90956912 Active [address] 100 [facility],[address], [place], [address], [place] - [facility] 5 09:43:35 Dizziness and giddiness 524247158 Active 2024 TAMARA MILES MD 100 [facility],[address], [place], [address], [place] [facility] 5 11:21:21 Clearing throat - hawking 473002045 Active 2024 TAMARA MILES MD 100 [facility],[address], [place], [address], [place] [facility] 5 11:11:02 Acute pharyngitis 770572457 Active 2024 EDWIN NASH PA-C 100 [facility],[address], [place], [address], [place] [facility] [place] 5 12:35:44 Allergic rhinitis 35190595 Active 2024 EDWIN NASH PA-C [facility], [place], [address], [facility] - [facility] [place] 5 12:36:50 Problem Notes None recorded. Procedures Surgical History Date Name Laterality Status Provider Name and Address Organization Details Recorded Time 09/17/20 25 Air & Speech Audio with Tymps - 81556, 51271 & 05413 completed NIKUNJ REESE, AUD 100 [facility],[address], [address], [facility] 09/17/2025 11:49:06 10/23/19 25 Fiberoptic Laryngoscopy (Comprehensive) completed TAMARA MILES MD 100 [facility],[address], [address], [facility] 11/01/2024 11:10:12 10/23/19 25 Air & Speech Audio with Tymps - 90164, 75959 & 37038 completed CARLOS EMERSON, AUD 100 [facility],[address], [address], [facility] 10/23/2024 09:44:38 Imaging Results None recorded. [...] Updated DateTime 09/21/2025 172.72 cm 30.4 kg/m2 56776.47 g Simran Lazaro [place] - [facility] 09/21/2025 09:30:00 Social History None recorded. [...] Migraines N Thyroid Problems N Glaucoma N Developmental Delay N Depression Y COPD N Nasal or Sinus Problems Y Anemia N Immune System Disorder N Anesthesia Complications N Heart Attack ([place]) N Other Skin Condition N Diabetes Y [...] ICD10 Code Diagnosis IMO Codes Diagnosis Note [id number] PRITI CAR [facility] of [address] [address] 09/17/2025 11:28:58 09/17/2025 11:58:09 Abnormal auditory perception 97596186 H93.299 Audiologic al evaluation results: Right ear: Normal hearing with excellent word recognitio n. Left ear: Normal hearing with excellent word recognitio n. Tympanomet ry: Right Ear:Type Ad Left Ear:Type Ad [id number] EDWIN NASH PA-C [facility] of [address] [address] 09/21/2025 09:23:12 09/21/2025 09:49:23 Dizziness and giddiness 204500021 R42 Acute pharyngitis 686224 003 J02.9 401189694 Allergic rhinitis 859631 04 J30.9 8714290 Health Concerns Section Related Observation LastModified by Organization Detai ls LastModified Time None Recorded Concern Status LastModified by Organization Details LastModified Time None Recorded Payers Encounter Date Sequence Insurance Name Policy Number Policy Francois Covered Member ID Francois Member ID Guarantor Name 09/21/[address] [place] [address] [id number] Omar Foster [id number] Omar Foster Notes Date Note Type Note Provider Name and Address Organization Details Recorded Time 09/21/2025 text/html ROS as noted in the HPI 24-year-old [...] due to acute symptoms. TAMARA MILES MD [address] [place] [address], [place], [address], [facility] - [facility] 09/21/2025 13:00:11
--- OUTSIDE RECORDS SUMMARY | 2025-10-11 22:13 | XMS_ITS | Continuity of Care Document ---
Author Organization [place] [facility], [facility] Address [address] [place] [address] Care Team Providers Care Production Weigher Name Role Phone RUTHY DEE Referring Provider [phone] Assessment No assessment recorded. Plan of Treatment Reminders Order Date Submit [...] audio gram No observ ation record ed. [email or web address] Not Available 10/2024 12:02:03 09/17/20 25 audio gram No observ ation record ed. BARCODE Not Available 2024 13:42:07 Result Notes None recorded. Problems Name Problem SNOMED Code Status Onset Date Resolution Date Notes Provider Name and Address Organization Details Recorded Time Abnormal auditory perception 00473400 Active 2024 PRITI BALLESTEROS [address], [address], [place] [facility] 09:43:35 Dizziness and giddiness 211610807 Active 2024 TAMARA MILES MD [address] [facility] [address], [place], [address], [place] - [facility] 11:21:21 Clearing throat - hawking 863021839 Active 2024 TAMARA MILSE MD [address] [address], [place], [address], [place] [facility] 11:11:02 Acute pharyngitis 331689261 Active 2024 EDWIN NASH PA-C [address] [address], [place], [address], [place] [facility] 12:35:44 Allergic rhinitis 27731725 Active 2024 EDWIN NASH PA-C [address] [address], [place], [address], [place] [facility] 12:36:50 Problem Notes None recorded. Procedures Surgical History Date Name Laterality Status Provider Name and Address Organization Details Recorded Time 09/17/20 25 Air & Speech Audio with Tymps - 53782, 21922 & 96108 completed PRITI CAR [address] [place] [address], [address], [facility] 09/17/2025 11:49:06 10/23/19 25 Fiberoptic Laryngoscopy (Comprehensive) completed TAMARA MILES MD [address], [address], [facility] 11/01/2024 11:10:12 10/23/19 25 Air & Speech Audio with Tymps - 62017, 34442 & 70267 completed PRITI BALLESTEROS [address] [place] [address], [address], [facility] 10/23/2024 09:44:38 Imaging Results None recorded. Procedure [...] Available Not Available No t Available Vitals None Recorded Social History None recorded. Functional Status Question [...] Disorder N Anesthesia Complications N Heart Attack ([place]) N Other Skin Condition N Diabetes Y [...] ICD10 Code Diagnosis IMO Codes Diagnosis Note [id number] PRITI CAR [facility] of [address] [address] 09/17/2025 11:28:58 09/17/2025 11:58:09 Abnormal auditory perception [id number] H93.299 Audiologic al evaluation results: Right ear: Normal hearing with excellent word recognitio n. Left ear: Normal hearing with excellent word recognitio n. Tympanomet ry: Right Ear:Type Ad Left Ear:Type Ad Health Concerns Section Related Observation LastModified by Organization Detai ls LastModified Time None Recorded Concern Status LastModified by Organization Details LastModified Time None Recorded Payers Encounter Date Sequence Insurance Name Policy Number Policy Francois Covered Member ID Francois Member ID Guarantor Name 09/17/2025 1 [facility] [id number] Omar Foster [id number] Omar Foster
--- OUTSIDE RECORDS SUMMARY | 2025-10-11 22:13 | XMS_ITS | Encounter Summary ---
Author Organization [facility] Address [address] [place] [address] Phone Care Team Providers Care Assistant Therapy Aide Name Role Phone Unavailable Primary Care Provider Unavailabl e Encounter Details Date Type Department Care Team (Late st Contact Info) Description 09/07/2011 Documentation [facility] Family Medicine [address] [place] [address] Family Medicine, Physician [address] [place], [place] [id number] Social History Tobacco Use Types Packs/Day Years [...]
--- OUTSIDE RECORDS SUMMARY | 2025-10-11 22:13 | XMS_ITS | Clinical Summary ---
Author Organization [facility] Address [address] [place] [address] Phone Care Team Providers Care Deputy Chief Counsel Name Role Phone Unavailable Primary Care Provider [...]
== END 2025-10-11 22:00 | disposition home or self-care (01) ==
LOC: HO.ED 22:10
PROVIDERS: Emergency Provider Emergency Medicine; PCP Internal Medicine
DX: Z77.098 Contact with and (suspected) exposure to other hazardous, chiefly nonmedicinal, chemicals (principal)
CPT/HCPCS: 99282